=== PATIENT | female | born 1935 | race Hispanic/Latino ===

== ENCOUNTER 2016-10-14 11:05 | Emergency (ER) | payer OTHER, MEDICARE ==
[2016-10-14 11:21] VITALS: BP 120/64
[2016-10-14 11:58] LABS: CHLORIDE,CL 106 mmol/L (101-111); SODIUM,NA 141 mmol/L (135-145)
--- NOTE | 2016-10-14 13:16 | EDM.PDOC ---
ED HPI GENERAL MEDICAL PROBLEM - General Chief Complaint: Abdominal Pain Stated Complaint: SEVERE ABD PAIN, Time Seen by Provider: 10/14/16 11:25 Source of Information: Reports: Patient, Family History Limitations: Reports: Altered Mental Status (family reports alzheimers) - History of Present Illness INITIAL COMMENTS - FREE TEXT/NARRATIVE: This 81 yo female patient was sent to the ED from the [facility] due to abdominal pain, left arm pain and confusion. The patient has not been seen by the [facility] provider previously. The patient's family reports the patient has Alzheimer's and normally has confusion and memory issues. The patient's daughter reports the patient normally has intermittent abdominal pain and frequent UTI's. The patient has not had any recent treatments. The patient is normally supposed to be getting Vitamin B12 shots, but has not had a shot in the past month. Onset: Unknown/Unsure Duration: Constant Location: Reports: Abdomen, Upper Extremity, Left Quality: Reports: Ache, Dull Severity: Mild Improves with: Reports: None Worsens with: Reports: None Associated Symptoms: Reports: No Other Symptoms - Related Data Allergies Allergy/AdvReac Type Severity Reaction Status Date / Time iodine Allergy Cannot Verified 10/14/16 11:29 Remember Home Meds: Home Meds Cyanocobalamin (Vitamin B-12) [Cyanocobalamin Injection] 1,000 mcg IM WEEKLY [History] Ergocalciferol (Vitamin D2) [Vitamin D2] 50,000 unit PO ASDIRECTED 10/14/16 [ History] Past Medical History - Past Surgical History GI Surgical History: Reports: Appendectomy, Cholecystectomy Female Surgical History: Reports: Mastectomy Social & Family History - Family History Family Medical History: Noncontributory - Tobacco Use Smoking Status *Q: Current Some Day Smoker Years of Tobacco use: 60 Packs/Tins Daily: 1 Second Hand Smoke Exposure: Yes - Caffeine Use Caffeine Use: Reports: Coffee, Tea - Recreational Drug Use Recreational Drug Use: No ED ROS GENERAL - Review of Systems Review Of Systems: ROS reveals no pertinent complaints other than HPI. ED EXAM, GI/ABD - Physical Exam Exam: See Below Exam Limited By: No Limitations General Appearance: Alert, WD/WN, No Apparent Distress, Obese Eyes: Bilateral: Normal Appearance, EOMI Ears: Normal External Exam, Normal Canal, Hearing Grossly Normal, Normal TMs Nose: Normal Inspection, Normal Mucosa, No Blood Throat/Mouth: Normal Inspection, Normal Lips, Normal Teeth, Normal Gums, Normal Oropharynx, Normal Voice, No Airway Compromise Head: Atraumatic, Normocephalic Neck: Normal Inspection, Supple, Non-Tender, Full Range of Motion Respiratory/Chest: No Respiratory Distress, Lungs Clear, Normal Breath Sounds, No Accessory Muscle Use, Chest Non-Tender Cardiovascular: Normal Peripheral Pulses, Regular Rate, Rhythm, No Edema, No Gallop, No JVD, No Murmur, No Rub GI/Abdominal Exam: Normal Bowel Sounds, Soft, No Organomegaly, No Distention, No Abnormal Bruit, No Mass, Pelvis Stable, Tender (mild left upper quadrant tenderness to palpation) (Female) Exam: Deferred Rectal (Female) Exam: Deferred Back Exam: Normal Inspection, Full Range of Motion, NT Extremities: Normal Inspection, Normal Range of Motion, Non-Tender, Normal Capillary Refill, No Pedal Edema Neurological: Alert, Oriented, CN II-XII Intact, Normal Cognition, Normal Gait, Normal Reflexes, No Motor/Sensory Deficits Psychiatric: Other (memmory difficulties) Skin Exam: Warm, Dry, Intact, Normal Color, No Rash Lymphatic: No Adenopathy Course - Vital Signs Last Recorded V/S: Last Vital Signs Temp 36.6 C 10/14/16 11:19 Pulse 66 10/14/16 11:19 Resp 14 10/14/16 11:19 BP 120/64 10/14/16 11:19 Pulse Ox 98 10/14/16 11:19 - Orders/Labs/Meds Orders: Active Orders 24 hr Category Date Time Status EKG Documentation Completion [RC] URGENT Care 10/14/16 11:06 Active Labs: Laboratory Tests 10/14/16 10/14/16 10/14/16 Range/Units 11:25 11:25 11:25 WBC 7.7 (5.0-10.0) 10^3/uL RBC 4.09 L (4.2-5.4) 10^6/uL Hgb 11.1 L (12.0-16.0) g/dL Hct 35.2 L (37.0-47.0) % MCV 86.1 (80-100) fL MCH 27.1 (27.0-34.0) pg MCHC 31.5 L (33.0-35.0) g/dL Plt Count 181 (150-450) 10^3/uL Neut % (Auto) 72.5 (42.2-75.2) % Lymph % (Auto) 20.1 L (20.5-50.1) % [place] % (Auto) 5.9 (2-8) % Eos % (Auto) 0.8 L (1.0-3.0) % Baso % (Auto) 0.7 (0.0-1.0) % Sodium 141 (135-145) mmol/L Potassium 3.7 (3.6-5.0) mmol/L Chloride 106 (101-111) mmol/L Carbon Dioxide 24.0 (21.0-31.0) mmol/L Anion Gap 14.7 BUN 11 (7-18) mg/dL Creatinine 0.7 (0.6-1.3) mg/dL Est Cr Clr Drug Dosing 54.43 mL/min Estimated GFR (MDRD) > 60 BUN/Creatinine Ratio 15.71 Glucose 121 H (74-105) mg/dL Lactic Acid (0.5-2.2) mmol/L Calcium 8.4 (8.4-10.2) mg/dl Magnesium 2.0 (1.8-2.5) mg/dL Total Bilirubin 0.4 (0.2-1.0) mg/dL AST 17 (10-42) IU/L ALT 14 (10-60) IU/L Alkaline Phosphatase 88 (42-121) IU/L Ammonia 29 (11-35) umol/L Troponin I < 0.02 (0.00-0.02) ng/ml Total Protein 6.6 L (6.7-8.2) g/dl Albumin 3.5 (3.2-5.5) g/dl Globulin 3.1 Albumin/Globulin Ratio 1.13 Amylase 78 (28-100) U/L Lipase 35 (22-51) U/L Urine Color (YELLOW) Urine Appearance (CLEAR) Urine pH (5.0-9.0) Ur Specific [place] (1.005-1.030) Urine Protein (NEGATIVE) Urine Glucose (UA) (NEGATIVE) Urine Ketones (NEGATIVE) Urine Occult Blood (NEGATIVE) Urine Nitrite (NEGATIVE) Urine Bilirubin (NEGATIVE) Urine Urobilinogen (0.2-1.0) mg/dL Ur Leukocyte Esterase (NEGATIVE) Urine RBC /HPF Urine WBC (0-5/HPF) /HPF Ur Epithelial Cells /HPF Urine Bacteria (0-FEW/HPF) /HPF Urine Mucus /LPF 10/14/16 10/14/16 Range/Units 11:25 11:54 WBC (5.0-10.0) 10^3/uL RBC (4.2-5.4) 10^6/uL Hgb (12.0-16.0) g/dL Hct (37.0-47.0) % MCV (80-100) fL MCH (27.0-34.0) pg MCHC (33.0-35.0) g/dL Plt Count (150-450) 10^3/uL Neut % (Auto) (42.2-75.2) % Lymph % (Auto) (20.5-50.1) % [place] % (Auto) (2-8) % Eos % (Auto) (1.0-3.0) % Baso % (Auto) (0.0-1.0) % Sodium (135-145) mmol/L Potassium (3.6-5.0) mmol/L Chloride (101-111) mmol/L Carbon Dioxide (21.0-31.0) mmol/L Anion Gap BUN (7-18) mg/dL Creatinine (0.6-1.3) mg/dL Est Cr Clr Drug Dosing mL/min Estimated GFR (MDRD) BUN/Creatinine Ratio Glucose (74-105) mg/dL Lactic Acid 1.2 (0.5-2.2) mmol/L Calcium (8.4-10.2) mg/dl Magnesium (1.8-2.5) mg/dL Total Bilirubin (0.2-1.0) mg/dL AST (10-42) IU/L ALT (10-60) IU/L Alkaline Phosphatase (42-121) IU/L Ammonia (11-35) umol/L Troponin I (0.00-0.02) ng/ml Total Protein (6.7-8.2) g/dl Albumin (3.2-5.5) g/dl Globulin Albumin/Globulin Ratio Amylase (28-100) U/L Lipase (22-51) U/L Urine Color Yellow (YELLOW) Urine Appearance Slightly cloudy (CLEAR) Urine pH 6.0 (5.0-9.0) Ur Specific [place] 1.020 (1.005-1.030) Urine Protein Negative (NEGATIVE) Urine Glucose (UA) Negative (NEGATIVE) Urine Ketones Negative (NEGATIVE) Urine Occult Blood Negative (NEGATIVE) Urine Nitrite Negative (NEGATIVE) Urine Bilirubin Negative (NEGATIVE) Urine Urobilinogen 0.2 (0.2-1.0) mg/dL Ur Leukocyte Esterase Small H (NEGATIVE) Urine RBC 0-5 /HPF Urine WBC 20-30 H (0-5/HPF) /HPF Ur Epithelial Cells Moderate H /HPF Urine Bacteria Many H (0-FEW/HPF) /HPF Urine Mucus Few H /LPF Departure - Departure Time of Disposition: 13:13 Disposition: Home, Self-Care 01 Condition: Fair Clinical Impression: UTI (urinary tract infection) Qualifiers: Urinary tract infection type: site unspecified Hematuria presence: without hematuria Qualified Code(s): N39.0 - Urinary tract infection, site not specified - Discharge Information Instructions: Urinary Tract Infection, Adult Forms: ED Department Discharge Care Plan Goals: The patient and family were advised of the examination, lab and x-ray results during the visit. The patient was given a script for Keflex (500 mg) #14 to take 1 by mouth 2 times per day for 7 days. If the patient has any additional symptoms or concerns, the patient should follow-up with her primary care facility or return to the emergency department. - My Orders Last 24 Hours: My Active Orders 10/14/16 11:06 EKG Documentation Completion [RC] URGENT - Assessment/Plan Last 24 Hours: My Active Orders 10/14/16 11:06 EKG Documentation Completion [RC] URGENT
--- NOTE | 2016-10-19 09:37 | EKG ---
10/14/2016- TRICIA PÉREZ - EKG per my reading shows sinus rhythm with lateral T-wave inversions. [facility] /[id number]
== END 2016-10-14 13:22 | disposition home or self-care (01) ==
LOC: DL.ED 11:05
DX: N39.0 Urinary tract infection, site not specified (principal); F17.210 Nicotine dependence, cigarettes, uncomplicated; Z90.49 Acquired absence of other specified parts of digestive tract; Z88.8 Allergy status to other drugs, medicaments and biological substances
CPT/HCPCS: 36415; 74020; 80053; 81001; 82140; 82150; 83605; 83690; 83735; 84484; 85025; 93005; 93010; 99283; 99284

== ENCOUNTER 2017-05-24 21:56 | Emergency (ER) | payer OTHER, MEDICARE ==
[2017-05-24] MEDS ORDERED: Sodium Chloride 0.9% 1,000 ML IV ONE (22:07)
[2017-05-24 22:34] LABS: CHLORIDE,CL 101 mmol/L (101-111); SODIUM,NA 136 mmol/L (135-145)
[2017-05-25 00:39] VITALS: BP 126/89
--- NOTE | 2017-05-25 04:44 | EDM.PDOC ---
ED HPI GENERAL MEDICAL PROBLEM - General Chief Complaint: Abdominal Pain Stated Complaint: [id number] [facility] - [facility] Time Seen by Provider: 05/24/17 21:57 - Related Data Allergies Allergy/AdvReac Type Severity Reaction Status Date / Time iodine Allergy Cannot Verified 05/24/17 22:05 Remember Home Meds: Home Meds Cyanocobalamin (Vitamin B-12) [Cyanocobalamin Injection] 1,000 mcg IM WEEKLY [History] Past Medical History Gastrointestinal History: Reports: GI Bleed - Past Surgical History GI Surgical History: Reports: Appendectomy, Cholecystectomy Female Surgical History: Reports: Mastectomy Social & Family History - Family History Family Medical History: Noncontributory - Tobacco Use Smoking Status *Q: Unknown Ever Smoked Years of Tobacco use: 60 Packs/Tins Daily: 1 Second Hand Smoke Exposure: No - Caffeine Use Caffeine Use: Reports: Coffee, Tea - Recreational Drug Use Recreational Drug Use: No ED ROS GENERAL - Review of Systems Review Of Systems: See Below Constitutional: Reports: Malaise, Weakness, Fatigue, Decreased Appetite HEENT: Reports: No Symptoms Respiratory: Denies: Shortness of Breath, Cough Cardiovascular: Reports: No Symptoms GI/Abdominal: Reports: Abdominal Pain, Decreased Appetite, Stool Incontinence ( x1 yesterday, dark) Musculoskeletal: Reports: No Symptoms Skin: Reports: No Symptoms Neurological: Reports: Pre-Existing Deficit (alzheimers) Hematologic/Lymphatic: Reports: Anemia ED EXAM, GI/ABD - Physical Exam Exam: See Below Exam Limited By: No Limitations General Appearance: Alert, No Apparent Distress Eyes: Bilateral: EOMI, Pale Conjunctiva Ears: Normal External Exam Nose: Normal Inspection Throat/Mouth: Normal Inspection Head: Atraumatic, Normocephalic Neck: Normal Inspection Respiratory/Chest: No Respiratory Distress, Lungs Clear, Other (dyspnea with extertion noted when up to BR) GI/Abdominal Exam: Normal Bowel Sounds, Soft, Tender (mild periumbilcal, firm nontender mass lower mid abdomen and LLQ) Back Exam: Normal Inspection Extremities: Normal Inspection. No: Pedal Edema Neurological: Alert, Confused, Memory Loss Recent Events Psychiatric: Normal Affect Skin Exam: Warm, Dry, Intact, Pallor Course - Vital Signs Last Recorded V/S: Last Vital Signs Temp 98.0 F 05/25/17 00:11 Pulse 97 05/25/17 00:11 Resp 19 05/25/17 00:11 BP 126/89 05/25/17 00:11 Pulse Ox 100 05/24/17 23:56 - Orders/Labs/Meds Orders: Active Orders 24 hr Category Date Time Status EKG Documentation Completion [RC] URGENT Care 05/24/17 22:07 Active CULTURE BLOOD [BC] Stat Lab 05/24/17 23:50 Received CULTURE BLOOD [BC] Stat Lab 05/24/17 23:55 Received PACKED CELLS [RED BLOOD CELLS LP] [BBK] Stat Lab 05/24/17 22:05 Results TYPE AND SCREEN [BBK] Stat Lab 05/24/17 22:05 Results WEAK D TEST [BBK] Stat Lab 05/24/17 22:05 Results Blood Culture x2 Reflex Set [OM.PC] Stat Oth 05/24/17 22:07 Ordered Labs: Laboratory Tests 05/24/17 05/24/17 05/24/17 Range/Units 22:05 22:05 22:05 WBC 9.6 (5.0-10.0) 10^3/uL RBC 2.74 L (4.2-5.4) 10^6/uL Hgb 4.7 L* D (12.0-16.0) g/dL Hct 18.3 L* (37.0-47.0) % MCV 66.8 L D (80-100) fL MCH 17.2 L (27.0-34.0) pg MCHC 25.7 L (33.0-35.0) g/dL Plt Count 359 D (150-450) 10^3/uL Neut % (Auto) 66.8 (42.2-75.2) % Lymph % (Auto) 24.9 (20.5-50.1) % [place] % (Auto) 6.9 (2-8) % Eos % (Auto) 0.8 L (1.0-3.0) % Baso % (Auto) 0.6 (0.0-1.0) % Add Manual Diff Yes Neutrophils % (Manual) 73 (42-75) % Lymphocytes % (Manual) 23 (20-50) % Monocytes % (Manual) 3 (2-8) % Eosinophils % (Manual) 1 (1-3) % Hypochromasia 2+ moderate Poikilocytosis 2+ moderate Microcytosis 2+ moderate Target Cells 1+ slight Ovalocytes 1+ slight Stomatocytes 1+ slight PT (9.0-12.0) SEC INR (0.9-1.2) Sodium 136 (135-145) mmol/L Potassium 3.3 L (3.6-5.0) mmol/L Chloride 101 (101-111) mmol/L Carbon Dioxide 27.0 (21.0-31.0) mmol/L Anion Gap 11.3 BUN 13 (7-18) mg/dL Creatinine 0.8 (0.6-1.3) mg/dL Est Cr Clr Drug Dosing 50.75 mL/min Estimated GFR (MDRD) > 60 BUN/Creatinine Ratio 16.25 Glucose 141 H (74-105) mg/dL Lactic Acid (0.5-2.2) mmol/L Calcium 8.3 L (8.4-10.2) mg/dl Total Bilirubin 0.4 (0.2-1.0) mg/dL AST 17 (10-42) IU/L ALT 9 L (10-60) IU/L Alkaline Phosphatase 80 (42-121) IU/L CK-MB (CK-2) 1.80 (0.4-4.7) ng/mL Troponin I < 0.02 (0.00-0.02) ng/ml B-Natriuretic Peptide 503 H (0-100) pg/ml Total Protein 6.7 (6.7-8.2) g/dl Albumin 3.4 (3.2-5.5) g/dl Globulin 3.3 Albumin/Globulin Ratio 1.03 Amylase 75 (28-100) U/L Lipase 25 (22-51) U/L Urine Color (YELLOW) Urine Appearance (CLEAR) Urine pH (5.0-9.0) Ur Specific [place] (1.005-1.030) Urine Protein (NEGATIVE) Urine Glucose (UA) (NEGATIVE) Urine Ketones (NEGATIVE) Urine Occult Blood (NEGATIVE) Urine Nitrite (NEGATIVE) Urine Bilirubin (NEGATIVE) Urine Urobilinogen (0.2-1.0) mg/dL Ur Leukocyte Esterase (NEGATIVE) Urine RBC /HPF Urine WBC (0-5/HPF) /HPF Ur Epithelial Cells /HPF Urine Bacteria (0-FEW/HPF) /HPF Blood Type Gel Antibody Screen Crossmatch 05/24/17 05/24/17 05/24/17 Range/Units 22:05 22:05 22:27 WBC (5.0-10.0) 10^3/uL RBC (4.2-5.4) 10^6/uL Hgb (12.0-16.0) g/dL Hct (37.0-47.0) % MCV (80-100) fL MCH (27.0-34.0) pg MCHC (33.0-35.0) g/dL Plt Count (150-450) 10^3/uL Neut % (Auto) (42.2-75.2) % Lymph % (Auto) (20.5-50.1) % [place] % (Auto) (2-8) % Eos % (Auto) (1.0-3.0) % Baso % (Auto) (0.0-1.0) % Add Manual Diff Neutrophils % (Manual) (42-75) % Lymphocytes % (Manual) (20-50) % Monocytes % (Manual) (2-8) % Eosinophils % (Manual) (1-3) % Hypochromasia Poikilocytosis Microcytosis Target Cells Ovalocytes Stomatocytes PT 9.4 (9.0-12.0) SEC INR 0.9 (0.9-1.2) Sodium (135-145) mmol/L Potassium (3.6-5.0) mmol/L Chloride (101-111) mmol/L Carbon Dioxide (21.0-31.0) mmol/L Anion Gap BUN (7-18) mg/dL Creatinine (0.6-1.3) mg/dL Est Cr Clr Drug Dosing mL/min Estimated GFR (MDRD) BUN/Creatinine Ratio Glucose (74-105) mg/dL Lactic Acid (0.5-2.2) mmol/L Calcium (8.4-10.2) mg/dl Total Bilirubin (0.2-1.0) mg/dL AST (10-42) IU/L ALT (10-60) IU/L Alkaline Phosphatase (42-121) IU/L CK-MB (CK-2) (0.4-4.7) ng/mL Troponin I (0.00-0.02) ng/ml B-Natriuretic Peptide (0-100) pg/ml Total Protein (6.7-8.2) g/dl Albumin (3.2-5.5) g/dl Globulin Albumin/Globulin Ratio Amylase (28-100) U/L Lipase (22-51) U/L Urine Color Yellow (YELLOW) Urine Appearance Clear (CLEAR) Urine pH 6.5 (5.0-9.0) Ur Specific [place] 1.015 (1.005-1.030) Urine Protein Negative (NEGATIVE) Urine Glucose (UA) Negative (NEGATIVE) Urine Ketones Negative (NEGATIVE) Urine Occult Blood Negative (NEGATIVE) Urine Nitrite Negative (NEGATIVE) Urine Bilirubin Negative (NEGATIVE) Urine Urobilinogen 1.0 (0.2-1.0) mg/dL Ur Leukocyte Esterase Trace H (NEGATIVE) Urine RBC 0-5 /HPF Urine WBC 0-5 (0-5/HPF) /HPF Ur Epithelial Cells Occasional /HPF Urine Bacteria Many H (0-FEW/HPF) /HPF Blood Type A NEGATIVE Gel Antibody Screen Negative Crossmatch See Detail 05/24/17 Range/Units 23:50 WBC (5.0-10.0) 10^3/uL RBC (4.2-5.4) 10^6/uL Hgb (12.0-16.0) g/dL Hct (37.0-47.0) % MCV (80-100) fL MCH (27.0-34.0) pg MCHC (33.0-35.0) g/dL Plt Count (150-450) 10^3/uL Neut % (Auto) (42.2-75.2) % Lymph % (Auto) (20.5-50.1) % [place] % (Auto) (2-8) % Eos % (Auto) (1.0-3.0) % Baso % (Auto) (0.0-1.0) % Add Manual Diff Neutrophils % (Manual) (42-75) % Lymphocytes % (Manual) (20-50) % Monocytes % (Manual) (2-8) % Eosinophils % (Manual) (1-3) % Hypochromasia Poikilocytosis Microcytosis Target Cells Ovalocytes Stomatocytes PT (9.0-12.0) SEC INR (0.9-1.2) Sodium (135-145) mmol/L Potassium (3.6-5.0) mmol/L Chloride (101-111) mmol/L Carbon Dioxide (21.0-31.0) mmol/L Anion Gap BUN (7-18) mg/dL Creatinine (0.6-1.3) mg/dL Est Cr Clr Drug Dosing mL/min Estimated GFR (MDRD) BUN/Creatinine Ratio Glucose (74-105) mg/dL Lactic Acid 1.7 (0.5-2.2) mmol/L Calcium (8.4-10.2) mg/dl Total Bilirubin (0.2-1.0) mg/dL AST (10-42) IU/L ALT (10-60) IU/L Alkaline Phosphatase (42-121) IU/L CK-MB (CK-2) (0.4-4.7) ng/mL Troponin I (0.00-0.02) ng/ml B-Natriuretic Peptide (0-100) pg/ml Total Protein (6.7-8.2) g/dl Albumin (3.2-5.5) g/dl Globulin Albumin/Globulin Ratio Amylase (28-100) U/L Lipase (22-51) U/L Urine Color (YELLOW) Urine Appearance (CLEAR) Urine pH (5.0-9.0) Ur Specific [place] (1.005-1.030) Urine Protein (NEGATIVE) Urine Glucose (UA) (NEGATIVE) Urine Ketones (NEGATIVE) Urine Occult Blood (NEGATIVE) Urine Nitrite (NEGATIVE) Urine Bilirubin (NEGATIVE) Urine Urobilinogen (0.2-1.0) mg/dL Ur Leukocyte Esterase (NEGATIVE) Urine RBC /HPF Urine WBC (0-5/HPF) /HPF Ur Epithelial Cells /HPF Urine Bacteria (0-FEW/HPF) /HPF Blood Type Gel Antibody Screen Crossmatch Meds: Medications Discontinued Medications Generic Name Dose Route Start Last Admin Trade Name Freq PRN Reason Stop Dose Admin Sodium Chloride 1,000 mls @ 75 mls/hr 05/24/17 22:07 05/24/17 22:23 Normal Saline IV 05/25/17 11:26 75 mls/hr .BOLUS ONE Administration - Radiology Interpretation Free Text/Narrative:: CXR mild pulmonary edema Abdomen flat plate; formed stool throughout entirety of colon - Re-Assessments/Exams Free Text/Narrative Re-Assessment/Exam: 05/25/17 04:38 TC call received from instructional technology coordinator provider at [facility], [facility] due to ongoing c/o abdominal pain , fatigue sleeping 75% of day. Hx of frequent UTI's and family concern or recurrence. MD reported labs downe today were noted that Hgb 4.5 . MD unable to get ahold of patient or family so notified [employer] for welfare check. Family arrived at patient residence when PD there. Brought to ER as recommended for further evaluation. Dr. Mills [place] provider updated on status. No critical care availabilty and distance to travel recommend patient be transferred to closer facilty with critical care capability and GI workup. Dr Ling accepting of patient. Tx via [facility]. Patient stable, guarded status at time of transfer.First unit PRBC infusing. Departure - Departure Time of Disposition: 00:55 Disposition: DC/Tfer to Acute Hospital 02 Condition: Serious Clinical Impression: Elevated brain natriuretic peptide (BNP) level Abdominal pain Qualifiers: Abdominal location: periumbilical Qualified Code(s): R10.33 - Periumbilical pain Anemia Qualifiers: Anemia type: unspecified type Qualified Code(s): D64.9 - Anemia, unspecified Alzheimers disease Qualifiers: Alzheimer's disease onset: unspecified onset Dementia behavioral disturbance: without behavioral disturbance Qualified Code(s): G30.9 - Alzheimer's disease, unspecified; F02.80 - Dementia in other diseases classified elsewhere without behavioral disturbance; F02.80 - Dementia in other diseases classified elsewhere without behavioral disturbance; F02.80 - Dementia in other diseases classified elsewhere without behavioral disturbance - Discharge Information Forms: ED Department Discharge - My Orders Last 24 Hours: My Active Orders 05/24/17 22:05 PACKED CELLS [RED BLOOD CELLS LP] [BBK] Stat TYPE AND SCREEN [BBK] Stat WEAK D TEST [BBK] Stat 05/24/17 22:07 EKG Documentation Completion [RC] URGENT Blood Culture x2 Reflex Set [OM.PC] Stat 05/24/17 23:50 CULTURE BLOOD [BC] Stat 05/24/17 23:55 CULTURE BLOOD [BC] Stat - Assessment/Plan Last 24 Hours: My Active Orders 05/24/17 22:05 PACKED CELLS [RED BLOOD CELLS LP] [BBK] Stat TYPE AND SCREEN [BBK] Stat WEAK D TEST [BBK] Stat 05/24/17 22:07 EKG Documentation Completion [RC] URGENT Blood Culture x2 Reflex Set [OM.PC] Stat 05/24/17 23:50 CULTURE BLOOD [BC] Stat 05/24/17 23:55 CULTURE BLOOD [BC] Stat
--- NOTE | 2017-05-26 09:59 | EKG ---
05/24/2017- TRICIA PÉREZ - TIME: 10:12 p.m. FINDINGS: EKG, per my reading, shows sinus rhythm with anterolateral ST depression. [facility] /[id number]
--- NOTE | 2017-05-26 10:12 | EKG ---
05/24/2017- TRICIA PÉREZ - TIME: 10:11 p.m. FINDINGS: EKG, per my reading, shows sinus rhythm with PACs and anterolateral ST depression. [facility] /[id number]
== END 2017-05-25 00:50 ==
LOC: DL.ED 21:56
DX: R10.33 Periumbilical pain (principal); R79.89 Other specified abnormal findings of blood chemistry; G30.9 Alzheimer's disease, unspecified; F02.80 Dementia in other diseases classified elsewhere, unspecified severity, without behavioral disturbance, psychotic disturbance, mood disturbance, and anxiety; D64.9 Anemia, unspecified; Z91.09 Other allergy status, other than to drugs and biological substances; Z90.49 Acquired absence of other specified parts of digestive tract
CPT/HCPCS: 36415; 36430; 71045; 74018; 80053; 81001; 82150; 82272; 82553; 83605; 83690; 83880; 84484; 85025; 85610; 86850; 86900; 86901; 86920; 86922; 87040; 93005; 93010; 96365; 96366; 99285; J7030; P9016

== ENCOUNTER 2018-09-03 11:20 | Inpatient (IN) | payer MEDICARE, OTHER ==
[2018-09-03] MEDS ORDERED: Sodium Chloride 0.9% 1,000 ML IV SCH (12:00)
--- NOTE | 2018-09-03 12:00 | EDM.PDOC ---
ED HPI GENERAL MEDICAL PROBLEM - General Chief Complaint: General Stated Complaint: sleeping, no liquid intake Time Seen by Provider: 09/03/18 11:50 Source of Information: Reports: Patient History Limitations: Reports: No Limitations - History of Present Illness INITIAL COMMENTS - FREE TEXT/NARRATIVE: This 83 yo female patient was brought to the ED by her daughter due to increased tiredness, loss of appetite and little fluid intake. The patient has a history of dementia. The patient's daughter relayed the patient's history. The patient finished up an antibiotic over the weekend for a UTI. The daughter reports the patient has not been eating or drinking over the weekend. The [facility] was called today and the patient's daughter was told to bring the patient to the ED. 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 ED EXAM, GENERAL - Physical Exam Exam: See Below Exam Limited By: No Limitations General Appearance: Alert, WD/WN, No Apparent Distress Eye Exam: Bilateral Eye: EOMI, Normal Inspection, PERRL Ears: Normal External Exam, Normal Canal, Hearing Grossly Normal, Normal TMs Nose: Normal Inspection, Normal Mucosa, No Blood Throat/Mouth: Normal Inspection, Normal Lips, Normal Teeth, Normal Gums, Normal Oropharynx, Normal Voice, No Airway Compromise Head: Atraumatic, Normocephalic Neck: Normal Inspection, Supple, Non-Tender, Full Range of Motion Respiratory/Chest: No Respiratory Distress, Lungs Clear, Normal Breath Sounds, No Accessory Muscle Use, Chest Non-Tender Cardiovascular: Regular Rate, Rhythm, No Edema, No Gallop, No JVD, No Rub, Systolic Murmur GI/Abdominal: Normal Bowel Sounds, Soft, Non-Tender, No Organomegaly, No Distention, No Abnormal Bruit, No Mass (Female) Exam: Deferred Rectal (Female) Exam: Deferred Back Exam: Normal Inspection, Full Range of Motion, NT Extremities: Normal Inspection, Normal Range of Motion, Non-Tender, Normal Capillary Refill, No Pedal Edema Neurological: Alert, Oriented, CN II-XII Intact, Normal Cognition, Normal Gait, Normal Reflexes, No Motor/Sensory Deficits Psychiatric: Flat Affect Skin Exam: Warm, Dry, Intact, Normal Color, No Rash Lymphatic: No Adenopathy Course - Vital Signs Last Recorded V/S: Last Vital Signs Temp 35.8 C 09/03/18 12:45 Pulse 91 09/03/18 12:45 Resp 22 H 09/03/18 12:45 BP 94/50 L 09/03/18 12:45 Pulse Ox 94 L 09/03/18 12:45 - Orders/Labs/Meds Orders: Active Orders 24 hr Category Date Time Status EKG Documentation Completion [RC] URGENT Care 09/03/18 11:52 Active CULTURE BLOOD [BC] Stat Lab 09/03/18 12:05 Received RED BLOOD CELLS LP [BBK] Stat Lab 09/03/18 12:05 Results TYPE AND SCREEN [BBK] Stat Lab 09/03/18 12:05 Results UA RFX SHEILA AND CULT IF INDIC [URIN] Urgent Lab 09/03/18 11:53 Ordered WEAK D TEST [BBK] Stat Lab 09/03/18 12:05 Results Sodium Chloride 0.9% [Normal Saline] 1,000 ml Med 09/03/18 12:00 Active IV ASDIRECTED Transfuse Red Blood Cells [COMM] Urgent Oth 09/03/18 12:53 Ordered Medication Orders Sodium Chloride (Normal Saline) 1,000 mls @ 500 mls/hr IV ASDIRECTED MILTON Last Admin: 09/03/18 12:03 Dose: 500 mls/hr Labs: Laboratory Tests 09/03/18 09/03/18 09/03/18 Range/Units 12:05 12:05 12:05 WBC 7.6 (5.0-10.0) 10^3/uL RBC 3.26 L (4.2-5.4) 10^6/uL Hgb 5.0 L* (12.0-16.0) g/dL Hct 20.3 L* (37.0-47.0) % MCV 62.3 L D (80-100) fL MCH 15.3 L (27.0-34.0) pg MCHC 24.6 L (33.0-35.0) g/dL Plt Count 332 (150-450) 10^3/uL Neut % (Auto) 88.2 H (42.2-75.2) % Lymph % (Auto) 6.3 L (20.5-50.1) % [place] % (Auto) 4.7 (2-8) % Eos % (Auto) 0.4 L (1.0-3.0) % Baso % (Auto) 0.4 (0.0-1.0) % Sodium 139 (135-145) mmol/L Potassium 3.0 L (3.6-5.0) mmol/L Chloride 105 (101-111) mmol/L Carbon Dioxide 22.0 (21.0-31.0) mmol/L Anion Gap 15.0 BUN 10 (7-18) mg/dL Creatinine 0.7 (0.6-1.3) mg/dL Est Cr Clr Drug Dosing 50.37 mL/min Estimated GFR (MDRD) > 60 BUN/Creatinine Ratio 14.28 Glucose 164 H (74-105) mg/dL Lactic Acid 2.5 H (0.5-2.2) mmol/L Calcium 8.4 (8.4-10.2) mg/dl Total Bilirubin 1.5 H (0.2-1.0) mg/dL AST 17 (10-42) IU/L ALT 10 (10-60) IU/L Alkaline Phosphatase 84 (42-121) IU/L Troponin I < 0.02 (0.00-0.02) ng/ml Total Protein 6.4 L (6.7-8.2) g/dl Albumin 3.4 (3.2-5.5) g/dl Globulin 3.0 Albumin/Globulin Ratio 1.13 Blood Type Gel Antibody Screen Crossmatch 09/03/18 Range/Units 12:05 WBC (5.0-10.0) 10^3/uL RBC (4.2-5.4) 10^6/uL Hgb (12.0-16.0) g/dL Hct (37.0-47.0) % MCV (80-100) fL MCH (27.0-34.0) pg MCHC (33.0-35.0) g/dL Plt Count (150-450) 10^3/uL Neut % (Auto) (42.2-75.2) % Lymph % (Auto) (20.5-50.1) % [place] % (Auto) (2-8) % Eos % (Auto) (1.0-3.0) % Baso % (Auto) (0.0-1.0) % Sodium (135-145) mmol/L Potassium (3.6-5.0) mmol/L Chloride (101-111) mmol/L Carbon Dioxide (21.0-31.0) mmol/L Anion Gap BUN (7-18) mg/dL Creatinine (0.6-1.3) mg/dL Est Cr Clr Drug Dosing mL/min Estimated GFR (MDRD) BUN/Creatinine Ratio Glucose (74-105) mg/dL Lactic Acid (0.5-2.2) mmol/L Calcium (8.4-10.2) mg/dl Total Bilirubin (0.2-1.0) mg/dL AST (10-42) IU/L ALT (10-60) IU/L Alkaline Phosphatase (42-121) IU/L Troponin I (0.00-0.02) ng/ml Total Protein (6.7-8.2) g/dl Albumin (3.2-5.5) g/dl Globulin Albumin/Globulin Ratio Blood Type A NEGATIVE Gel Antibody Screen Negative Crossmatch See Detail Meds: Medications Generic Name Dose Route Start Last Admin Trade Name Freq PRN Reason Stop Dose Admin Sodium Chloride 1,000 mls @ 500 mls/hr 09/03/18 12:00 09/03/18 12:03 Normal Saline IV 500 mls/hr ASDIRECTED MILTON Administration - Re-Assessments/Exams Free Text/Narrative Re-Assessment/Exam: 09/03/18 13:58 Discussed the history, examination, labs and treatments with Dr. Salas ([facility] in [place]). I received a return call from the [facility] transfer and pumphouse operator chief verifying there were no beds available at the [facility] in [place] and that they will put a note into the patient's chart for [facility] review. The patient will be admitted to [facility] for blood as well as further management. Departure - Departure Time of Disposition: 14:01 Disposition: Admitted As Inpatient 66 Condition: Serious Clinical Impression: Anemia Qualifiers: Anemia type: unspecified type Qualified Code(s): D64.9 - Anemia, unspecified - Discharge Information *PRESCRIPTION DRUG MONITORING PROGRAM REVIEWED*: Not Applicable *COPY OF PRESCRIPTION DRUG MONITORING REPORT IN PATIENT KEVIN: Not Applicable Forms: ED Department Discharge Care Plan Goals: Discussed the patient's history, examination, lab and treatments with Dr. Sethi. Dr. Sethi accepted the patient for continued evaluation and management as an inpatient at [facility]. - My Orders Last 24 Hours: My Active Orders 09/03/18 11:52 EKG Documentation Completion [RC] URGENT 09/03/18 11:53 UA RFX SHEILA AND CULT IF INDIC [URIN] Urgent 09/03/18 12:00 Sodium Chloride 0.9% [Normal Saline] 1,000 ml IV ASDIRECTED 09/03/18 12:05 CULTURE BLOOD [BC] Stat RED BLOOD CELLS LP [BBK] Stat TYPE AND SCREEN [BBK] Stat WEAK D TEST [BBK] Stat 09/03/18 12:53 Transfuse Red Blood Cells [COMM] Urgent - Assessment/Plan Last 24 Hours: My Active Orders 09/03/18 11:52 EKG Documentation Completion [RC] URGENT 09/03/18 11:53 UA RFX SHEILA AND CULT IF INDIC [URIN] Urgent 09/03/18 12:00 Sodium Chloride 0.9% [Normal Saline] 1,000 ml IV ASDIRECTED 09/03/18 12:05 CULTURE BLOOD [BC] Stat RED BLOOD CELLS LP [BBK] Stat TYPE AND SCREEN [BBK] Stat WEAK D TEST [BBK] Stat 09/03/18 12:53 Transfuse Red Blood Cells [COMM] Urgent
[2018-09-03 12:34] LABS: CHLORIDE,CL 105 mmol/L (101-111); SODIUM,NA 139 mmol/L (135-145)
[2018-09-03] MEDS ORDERED: Potassium Chloride 10 MEQ Tab.ER PO ONE (16:00)
[2018-09-03] MEDS ORDERED: Sodium Chloride 0.9% 10 ML Syringe FLUSH PRN (17:12)
--- NOTE | 2018-09-03 23:41 | PCM.HP ---
H&P History of Present Illness - General Date of Service: 09/03/18 Admit Problem/Dx: Admission Diagnosis/Problem Admission Diagnosis/Problem Anemia Source of Information: Family - History of Present Illness Initial Comments - Free Text/Narative: Patient is a 83 year old female was brought in today by daughter due to generalized weakness. patient was noted to be just laying in bed and not eating that much in the last 4 days but on the day of admission, really weak and not drinking at all hence daughter brought her to ER for possible IV fluids. at the ER was noted to have anemia. patient has chronic anemia, was worked up in [facility] in the past and was deemed to be unrevealing as per daughter. there are not other reported associated symptoms except for the weakness. no fever, chills , cough, shortness of breath, vomiting, diarrhea. patient also had recurrent UTI in the past. patient also has underlying dementia but there has been no changes in sensorium. 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: Neurological History: Reports: Alzheimers Disease Psychiatric History: Reports: Anxiety Hematologic History: Reports: Anemia, B12 Deficiency Oncologic (Cancer) History: Reports: Breast - Past Surgical History HEENT Surgical History: Reports: None GI Surgical History: Reports: Appendectomy, Cholecystectomy Female Surgical History: Reports: Mastectomy Other Female Surgeries/Procedures: Left breast removed Neurological Surgical History: Reports: None Oncologic Surgical History: Reports: Mastectomy Other Oncologic Surgeries/Procedures: Left breast removal Social & Family History - Family History Family Medical History: Noncontributory - Tobacco Use Smoking Status *Q: Never Smoker Second Hand Smoke Exposure: No - Caffeine Use Caffeine Use: Reports: Coffee - Recreational Drug Use Recreational Drug Use: No H&P Review of Systems - Review of Systems: Review Of Systems: See Below General: Reports: Weakness Exam - Exam Exam: See Below - Vital Signs Vital Signs: Last Vital Signs Temp 98.2 F 09/03/18 23:07 Pulse 92 09/03/18 23:07 Resp 20 09/03/18 23:07 BP 144/53 H 09/03/18 23:07 Pulse Ox 98 09/03/18 23:07 Weight: 158 lb - Exam General: Alert HEENT: Conjunctiva Clear Neck: Supple Lungs: Clear to Auscultation, Normal Respiratory Effort Cardiovascular: Regular Rate, Regular Rhythm GI/Abdominal Exam: Normal Bowel Sounds, Soft, Non-Tender - Patient Data Lab Results Last 24 hrs: Laboratory Results - last 24 hr 09/03/18 09/03/18 09/03/18 Range/Units 12:05 12:05 12:05 WBC 7.6 (5.0-10.0) 10^3/uL RBC 3.26 L (4.2-5.4) 10^6/uL Hgb 5.0 L* (12.0-16.0) g/dL Hct 20.3 L* (37.0-47.0) % MCV 62.3 L D (80-100) fL MCH 15.3 L (27.0-34.0) pg MCHC 24.6 L (33.0-35.0) g/dL Plt Count 332 (150-450) 10^3/uL Neut % (Auto) 88.2 H (42.2-75.2) % Lymph % (Auto) 6.3 L (20.5-50.1) % [place] % (Auto) 4.7 (2-8) % Eos % (Auto) 0.4 L (1.0-3.0) % Baso % (Auto) 0.4 (0.0-1.0) % Sodium 139 (135-145) mmol/L Potassium 3.0 L (3.6-5.0) mmol/L Chloride 105 (101-111) mmol/L Carbon Dioxide 22.0 (21.0-31.0) mmol/L Anion Gap 15.0 BUN 10 (7-18) mg/dL Creatinine 0.7 (0.6-1.3) mg/dL Est Cr Clr Drug Dosing 50.37 mL/min Estimated GFR (MDRD) > 60 BUN/Creatinine Ratio 14.28 Glucose 164 H (74-105) mg/dL Lactic Acid 2.5 H (0.5-2.2) mmol/L Calcium 8.4 (8.4-10.2) mg/dl Magnesium (1.8-2.5) mg/dL Total Bilirubin 1.5 H (0.2-1.0) mg/dL AST 17 (10-42) IU/L ALT 10 (10-60) IU/L Alkaline Phosphatase 84 (42-121) IU/L Troponin I < 0.02 (0.00-0.02) ng/ml Total Protein 6.4 L (6.7-8.2) g/dl Albumin 3.4 (3.2-5.5) g/dl Globulin 3.0 Albumin/Globulin Ratio 1.13 Urine Color (YELLOW) Urine Appearance (CLEAR) Urine pH (5.0-9.0) Ur Specific [place] (1.005-1.030) Urine Protein (NEGATIVE) Urine Glucose (UA) (NEGATIVE) Urine Ketones (NEGATIVE) Urine Occult Blood (NEGATIVE) Urine Nitrite (NEGATIVE) Urine Bilirubin (NEGATIVE) Urine Urobilinogen (0.2-1.0) mg/dL Ur Leukocyte Esterase (NEGATIVE) Urine RBC /HPF Urine WBC (0-5/HPF) /HPF Ur Epithelial Cells (NOT SEEN) /HPF Urine Bacteria (0-FEW/HPF) /HPF Urine Yeast (NOT SEEN) /HPF Blood Type Gel Antibody Screen Crossmatch 09/03/18 09/03/18 09/03/18 Range/Units 12:05 12:05 19:10 WBC (5.0-10.0) 10^3/uL RBC (4.2-5.4) 10^6/uL Hgb (12.0-16.0) g/dL Hct (37.0-47.0) % MCV (80-100) fL MCH (27.0-34.0) pg MCHC (33.0-35.0) g/dL Plt Count (150-450) 10^3/uL Neut % (Auto) (42.2-75.2) % Lymph % (Auto) (20.5-50.1) % [place] % (Auto) (2-8) % Eos % (Auto) (1.0-3.0) % Baso % (Auto) (0.0-1.0) % Sodium (135-145) mmol/L Potassium (3.6-5.0) mmol/L Chloride (101-111) mmol/L Carbon Dioxide (21.0-31.0) mmol/L Anion Gap BUN (7-18) mg/dL Creatinine (0.6-1.3) mg/dL Est Cr Clr Drug Dosing mL/min Estimated GFR (MDRD) BUN/Creatinine Ratio Glucose (74-105) mg/dL Lactic Acid (0.5-2.2) mmol/L Calcium (8.4-10.2) mg/dl Magnesium 1.9 (1.8-2.5) mg/dL Total Bilirubin (0.2-1.0) mg/dL AST (10-42) IU/L ALT (10-60) IU/L Alkaline Phosphatase (42-121) IU/L Troponin I (0.00-0.02) ng/ml Total Protein (6.7-8.2) g/dl Albumin (3.2-5.5) g/dl Globulin Albumin/Globulin Ratio Urine Color Magda (YELLOW) Urine Appearance Slightly cloudy (CLEAR) Urine pH 7.0 (5.0-9.0) Ur Specific [place] 1.020 (1.005-1.030) Urine Protein Trace H (NEGATIVE) Urine Glucose (UA) Negative (NEGATIVE) Urine Ketones 15 H (NEGATIVE) Urine Occult Blood Negative (NEGATIVE) Urine Nitrite Negative (NEGATIVE) Urine Bilirubin Negative (NEGATIVE) Urine Urobilinogen 2.0 H (0.2-1.0) mg/dL Ur Leukocyte Esterase Negative (NEGATIVE) Urine RBC Not seen /HPF Urine WBC 0-5 (0-5/HPF) /HPF Ur Epithelial Cells Many H (NOT SEEN) /HPF Urine Bacteria Many H (0-FEW/HPF) /HPF Urine Yeast Many H (NOT SEEN) /HPF Blood Type A NEGATIVE Gel Antibody Screen Negative Crossmatch See Detail 09/03/18 Range/Units 23:00 WBC (5.0-10.0) 10^3/uL RBC (4.2-5.4) 10^6/uL Hgb 6.1 L* (12.0-16.0) g/dL Hct 22.0 L (37.0-47.0) % MCV (80-100) fL MCH (27.0-34.0) pg MCHC (33.0-35.0) g/dL Plt Count (150-450) 10^3/uL Neut % (Auto) (42.2-75.2) % Lymph % (Auto) (20.5-50.1) % [place] % (Auto) (2-8) % Eos % (Auto) (1.0-3.0) % Baso % (Auto) (0.0-1.0) % Sodium (135-145) mmol/L Potassium (3.6-5.0) mmol/L Chloride (101-111) mmol/L Carbon Dioxide (21.0-31.0) mmol/L Anion Gap BUN (7-18) mg/dL Creatinine (0.6-1.3) mg/dL Est Cr Clr Drug Dosing mL/min Estimated GFR (MDRD) BUN/Creatinine Ratio Glucose (74-105) mg/dL Lactic Acid (0.5-2.2) mmol/L Calcium (8.4-10.2) mg/dl Magnesium (1.8-2.5) mg/dL Total Bilirubin (0.2-1.0) mg/dL AST (10-42) IU/L ALT (10-60) IU/L Alkaline Phosphatase (42-121) IU/L Troponin I (0.00-0.02) ng/ml Total Protein (6.7-8.2) g/dl Albumin (3.2-5.5) g/dl Globulin Albumin/Globulin Ratio Urine Color (YELLOW) Urine Appearance (CLEAR) Urine pH (5.0-9.0) Ur Specific [place] (1.005-1.030) Urine Protein (NEGATIVE) Urine Glucose (UA) (NEGATIVE) Urine Ketones (NEGATIVE) Urine Occult Blood (NEGATIVE) Urine Nitrite (NEGATIVE) Urine Bilirubin (NEGATIVE) Urine Urobilinogen (0.2-1.0) mg/dL Ur Leukocyte Esterase (NEGATIVE) Urine RBC /HPF Urine WBC (0-5/HPF) /HPF Ur Epithelial Cells (NOT SEEN) /HPF Urine Bacteria (0-FEW/HPF) /HPF Urine Yeast (NOT SEEN) /HPF Blood Type Gel Antibody Screen Crossmatch Result Diagrams: 09/03/18 23:00 09/03/18 12:05 Jamel Results Last 24 hrs: Microbiology 09/03/18 12:55 Stool Occult Blood (JAMEL) - Final Stool / Feces NEGATIVE OCCULT BLOOD REFERENCE RANGE: NEGATIVE *Q Meaningful Use (ADM) - VTE *Q VTE Anticoagulation Contraindications: Medical/Procedure Contrai Problem List Initiated/Reviewed/Updated: Yes Orders Last 24hrs: Active Orders 24 hr Category Date Time Status Patient Status [ADT] Routine ADT 09/03/18 15:43 Active Antiembolic Devices [RC] 08,20 Care 09/03/18 15:45 Active Communication Order [RC] DAILY Care 09/03/18 15:46 Active EKG Documentation Completion [RC] URGENT Care 09/03/18 11:52 Active Oxygen Therapy [RC] PRN Care 09/03/18 15:43 Active Up With Assistance [RC] ASDIRECTED Care 09/03/18 15:43 Active VTE/DVT Education [RC] PER UNIT ROUTINE Care 09/03/18 15:43 Active Vital Signs [RC] Q4H Care 09/03/18 15:43 Active Regular Diet [DIET] Diet 09/03/18 Dinner Active CULTURE BLOOD [BC] Stat Lab 09/03/18 12:05 Received CULTURE URINE [RM] Routine Lab 09/03/18 19:10 Received Sodium Chloride 0.9% [Saline Flush] Med 09/03/18 17:12 Active 10 ml FLUSH ASDIRECTED PRN Anticoagulation Contraindications VTE [AST] Per Unit Oth 09/03/18 15:43 Ordered Routine Antiembolic Hose [OM.PC] Per Unit Routine Oth 09/03/18 15:44 Ordered Saline Lock Insert [OM.PC] Routine Oth 09/03/18 17:12 Ordered Transfuse Red Blood Cells [COMM] Urgent Oth 09/03/18 12:53 Ordered Code Status [Resuscitation Status] Routine Resus Stat 09/03/18 18:56 Ordered Medication Orders Sodium Chloride (Saline Flush) 10 ml FLUSH ASDIRECTED PRN PRN Reason: Keep Vein Open Assessment/Plan Comment:: 1. chronic microcytic anemia - no active signs of bleeding - occult blood negative - blood transfusion and repeat H & H 2. history of recurrent UTI - check urinalysis and send for culture 3. dementia - not on medications - continue to assist and monitor 4. hypokalemia - replaced with kdur, will repeat potassium levels 5. DVT prophylaxis - holding medical anticoagulation due to anemia - anti embolic socks for now
[2018-09-04 12:26] LABS: ANION GAP 11.4; CHLORIDE,CL 109 mmol/L (101-111); SODIUM,NA 139 mmol/L (135-145)
[2018-09-04] MEDS ORDERED: Potassium Chloride 10 MEQ Tab.ER PO ONE (13:45)
[2018-09-04 17:29] VITALS: BP 160/88
== END 2018-09-04 17:45 | disposition critical access hospital (66) | DRG 812 ==
LOC: DL.ED 11:20 → DL.MS 14:30 → DL.ED 14:38 → UNDOADMIN 14:38 → DL.MS 14:38
PROVIDERS: ADMIT Internal Medicine; ATTEND Internal Medicine
PROC: 30233N1 Transfusion of Nonautologous Red Blood Cells into Peripheral Vein, Percutaneous Approach (ICD-10-PCS; principal; 2018-09-03)
DX: D50.9 Iron deficiency anemia, unspecified (principal); F41.9 Anxiety disorder, unspecified; G30.9 Alzheimer's disease, unspecified; F02.80 Dementia in other diseases classified elsewhere, unspecified severity, without behavioral disturbance, psychotic disturbance, mood disturbance, and anxiety; E53.8 Deficiency of other specified B group vitamins; Z90.49 Acquired absence of other specified parts of digestive tract; E87.6 Hypokalemia; Z91.048 Other nonmedicinal substance allergy status; Z79.899 Other long term (current) drug therapy; D64.9 Anemia, unspecified; F03.90 Unspecified dementia, unspecified severity, without behavioral disturbance, psychotic disturbance, mood disturbance, and anxiety; Z91.09 Other allergy status, other than to drugs and biological substances
CPT/HCPCS: 36415; 36430; 71045; 80053; 82272; 83605; 83735; 84484; 85025; 86850; 86900; 86901; 86920 ×3; 86922 ×3; 87040; 93005; 96360; 96361; 99285; J7030; P9016; 80048; 81001; 85014; 85018; 87086; 99284; A9270-GY

== ENCOUNTER 2019-05-31 10:45 | Observation (INO) | payer OTHER, MEDICARE ==
[2019-05-31 11:30] LABS: ANION GAP 11.6 mEq/L (7-13); CHLORIDE,CL 106 mmol/L (98-107); SODIUM,NA 142 mmol/L (136-145)
--- NOTE | 2019-05-31 11:37 | EDM.PDOC ---
ED HPI GENERAL MEDICAL PROBLEM - General Chief Complaint: General Stated Complaint: HEMOGLOBIN IS AT 6 Time Seen by Provider: 05/31/19 11:20 Source of Information: Reports: Patient History Limitations: Reports: No Limitations - History of Present Illness INITIAL COMMENTS - FREE TEXT/NARRATIVE: This 84 yo [place] a [place]. The [place] provider (visited with the patient via telemed yesterday) called the patient's daughter this morning and advised them to come directly to the ED due to a low hemoglobin level. The patient's daughter reports the patient has been more "combative" lately. The patient does have a history of iron deficiency anemia and has had blood transfusions in the past. The patient has been seen at the [place] and has also been seen at the [facility] for anemia, but they have not been able to figure out why her hemoglobin is low. Onset: Gradual, Unknown/Unsure Duration: Constant, Getting Worse Location: Reports: Other Quality: Reports: Other Severity: Moderate Improves with: Reports: None Worsens with: Reports: None Context: Reports: Other Associated Symptoms: Reports: No Other Symptoms - Related Data Allergies Allergy/AdvReac Type Severity Reaction Status Date / Time iodine Allergy Cannot Verified 05/31/19 11:01 Remember Home Meds: Home Meds Cyanocobalamin (Vitamin B-12) [Cyanocobalamin Injection] 1,000 mcg IM ASDIRECTED 10/14/16 [History] Past Medical History HEENT History: Reports: Other (See Below) Other HEENT History: dentures Gastrointestinal History: Reports: GI Bleed 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: Neurological History: Reports: Alzheimers Disease Psychiatric History: Reports: Anxiety Hematologic History: Reports: Anemia, B12 Deficiency Oncologic (Cancer) History: Reports: Breast - Past Surgical History HEENT Surgical History: Reports: None GI Surgical History: Reports: Appendectomy, Cholecystectomy Female Surgical History: Reports: Mastectomy Other Female Surgeries/Procedures: Left breast removed Neurological Surgical History: Reports: None Oncologic Surgical History: Reports: Mastectomy Other Oncologic Surgeries/Procedures: Left breast removal Social & Family History - Family History Family Medical History: Noncontributory - Tobacco Use Smoking Status *Q: Former Smoker Years of Tobacco use: 40 Used Tobacco, but Quit: Yes Month/Year Tobacco Last Used: 04/2015 - Caffeine Use Caffeine Use: Reports: None - Recreational Drug Use Recreational Drug Use: No ED ROS GENERAL - Review of Systems Review Of Systems: Comprehensive ROS is negative, except as noted in HPI. ED EXAM, GENERAL - Physical Exam Exam: See Below Exam Limited By: No Limitations General Appearance: Alert, WD/WN, Moderate Distress Eye Exam: Bilateral Eye: EOMI, Normal Inspection, PERRL Ears: Normal External Exam, Normal Canal, Hearing Grossly Normal, Normal TMs Nose: Normal Inspection, Normal Mucosa, No Blood Throat/Mouth: Normal Inspection, Normal Lips, Normal Teeth, Normal Gums, Normal Oropharynx, Normal Voice, No Airway Compromise Head: Atraumatic, Normocephalic Neck: Normal Inspection, Supple, Non-Tender, Full Range of Motion Respiratory/Chest: No Respiratory Distress, Lungs Clear, Normal Breath Sounds, No Accessory Muscle Use, Chest Non-Tender Cardiovascular: Normal Peripheral Pulses, Regular Rate, Rhythm, No Edema, No Gallop, No JVD, No Murmur, No Rub GI/Abdominal: Normal Bowel Sounds, Soft, Non-Tender, No Organomegaly, No Distention, No Abnormal Bruit, No Mass (Female) Exam: Deferred Rectal (Female) Exam: Deferred Extremities: Normal Inspection, Normal Range of Motion, Non-Tender, Normal Capillary Refill, No Pedal Edema Neurological: Alert, Oriented, CN II-XII Intact, Normal Cognition, Normal Gait, Normal Reflexes, No Motor/Sensory Deficits Psychiatric: Normal Affect, Normal Mood Skin Exam: Pallor Lymphatic: No Adenopathy Course - Vital Signs Last Recorded V/S: Last Vital Signs Temp 36.4 C 05/31/19 11:06 Pulse 73 05/31/19 11:06 Resp 16 05/31/19 11:06 BP 125/51 L 05/31/19 11:13 Pulse Ox 100 05/31/19 11:06 - Orders/Labs/Meds Orders: Active Orders 24 hr Category Date Time Status Admission Diagnosis [ADT] Stat ADT 05/31/19 12:09 Ordered Admission Status [Patient Status] [ADT] Routine ADT 05/31/19 12:09 Ordered RED BLOOD CELLS LP [BBK] Stat Lab 05/31/19 11:02 Received TYPE AND SCREEN [BBK] Stat Lab 05/31/19 11:02 Received UA RFX SHEILA AND CULT IF INDIC [URIN] Urgent Lab 05/31/19 10:47 Ordered Labs: Laboratory Tests 05/31/19 05/31/19 Range/Units 11:02 11:02 WBC 7.0 (5.0-10.0) 10^3/uL RBC 3.53 L (4.2-5.4) 10^6/uL Hgb 6.6 L* D (12.0-16.0) g/dL Hct 24.5 L (37.0-47.0) % MCV 69.4 L D (80-100) fL MCH 18.7 L (27.0-34.0) pg MCHC 26.9 L (33.0-35.0) g/dL Plt Count 301 (150-450) 10^3/uL Add Manual Diff Yes Neutrophils % (Manual) 77 H (42-75) % Lymphocytes % (Manual) 16 L (20-50) % Monocytes % (Manual) 4 (2-8) % Eosinophils % (Manual) 3 (1-3) % Sodium 142 (136-145) mmol/L Potassium 3.6 (3.5-5.1) mmol/L Chloride 106 (98-107) mmol/L Carbon Dioxide 28 (21-32) mmol/L Anion Gap 11.6 (7-13) mEq/L BUN 9 (7-18) mg/dL Creatinine 0.71 (0.55-1.02) mg/dL Est Cr Clr Drug Dosing 53.07 mL/min Estimated GFR (MDRD) > 60 BUN/Creatinine Ratio 12.7 (No establ ref range) Glucose 130 H (74-99) mg/dL Calcium 8.2 L (8.5-10.1) mg/dL Total Bilirubin 0.6 (0.2-1.0) mg/dL AST 8 L (15-37) U/L ALT 14 (14-59) U/L Alkaline Phosphatase 111 (46-116) U/L Total Protein 6.7 (6.4-8.2) g/dL Albumin 3.3 L (3.4-5.0) g/dL Globulin 3.4 Albumin/Globulin Ratio 0.97 Departure - Departure Time of Disposition: 12:13 Disposition: Admitted As Inpatient 66 Condition: Fair Clinical Impression: Anemia Qualifiers: Anemia type: unspecified type Qualified Code(s): D64.9 - Anemia, unspecified - Discharge Information *PRESCRIPTION DRUG MONITORING PROGRAM REVIEWED*: Not Applicable *COPY OF PRESCRIPTION DRUG MONITORING REPORT IN PATIENT KEVIN: Not Applicable Forms: ED Department Discharge Care Plan Goals: Discussed the patient's history, lab and examination results with Dr. Hopson. Dr. Hopson accepted the patient for continued evaluation and management as an observation patient here at [facility]. A call was placed to the [facility] to advise them of the admission. Sepsis Event Note - Evaluation Sepsis Screening Result: No Definite Risk - Focused Exam Vital Signs: Vital Signs Temp Pulse Resp BP BP Pulse Ox 05/31/19 11:13 125/51 L 05/31/19 11:06 36.4 C 73 16 150/121 H 100 Date Exam was Performed: 05/31/19 Time Exam was Performed: :13 - My Orders Last 24 Hours: My Active Orders 05/31/19 10:47 UA RFX SHEILA AND CULT IF INDIC [URIN] Urgent 05/31/19 11:02 RED BLOOD CELLS LP [BBK] Stat TYPE AND SCREEN [BBK] Stat 05/31/19 12:09 Admission Diagnosis [ADT] Stat Admission Status [Patient Status] [ADT] Routine - Assessment/Plan Last 24 Hours: My Active Orders 05/31/19 10:47 UA RFX SHEILA AND CULT IF INDIC [URIN] Urgent 05/31/19 11:02 RED BLOOD CELLS LP [BBK] Stat TYPE AND SCREEN [BBK] Stat 05/31/19 12:09 Admission Diagnosis [ADT] Stat Admission Status [Patient Status] [ADT] Routine
[2019-05-31] MEDS ORDERED: Acetaminophen 325 MG Tab PO PRN (12:48)
[2019-05-31] MEDS ORDERED: Sodium Chloride 0.9% 10 ML Syringe FLUSH PRN (12:48)
--- NOTE | 2019-05-31 18:18 | HP ---
CHIEF COMPLAINT: Anemia. HISTORY OF PRESENT ILLNESS: The patient is an 84-year-old lady with past medical history of anemia, Alzheimer dementia, B12 deficiency, who was admitted through the emergency room. Apparently, the patient had a Telemedicine visit with the [facility] yesterday, and the [facility] called the daughter this morning and advised them to go to the emergency room because of a low hemoglobin level. The patient's daughter reports that the patient has been more combative lately. The patient does have history of iron deficiency anemia and had blood transfusion in the past. The patient has been seen at the [place] and also has been seen at the [facility] for her anemia, but they have not been able to figure out why her hemoglobin is still low. The patient denies though any abdominal pain, headache, fever, chills, chest pain, shortness of breath, nor any other complaints. PAST MEDICAL HISTORY: As in HPI. The patient also has history of appendectomy, cholecystectomy, and left mastectomy. FAMILY HISTORY: Noncontributory. SOCIAL HISTORY: The patient is a former smoker, quit in 2016. The patient is non-alcohol drinker and no illicit drug use. REVIEW OF SYSTEMS: As in HPI. The rest of the review of systems is negative. HOME MEDICATIONS: Vitamin B12 1000 mcg IM monthly. PHYSICAL EXAMINATION: General: The patient is alert and forgetful, but not in any acute distress. Vital Signs: Blood pressure is 125/51, pulse of 73, respirations of 16, temperature of 36.4, saturation is 100% on room air. SHEENT: Normocephalic. There are pale palpebral conjunctivae. Sclerae anicteric. No JVD. No lymphadenopathy. HEART: Regular rate and rhythm. There is a grade 3/6 systolic ejection murmur. No gallops. No rubs. LUNGS: Equal bilaterally. No crackles. No wheezing. ABDOMEN: Soft, nontender. Bowel sounds positive. EXTREMITIES: Negative for any significant pedal edema. No calf tenderness. LABORATORY DATA: CBC: WBC is 7, hemoglobin is 6.6, hematocrit is 24.5, platelets are 301. Comp panel: Glucose is 130, calcium was 8.2. The rest of the panel unremarkable. ADMITTING DIAGNOSES: 1. Symptomatic anemia. 2. History of B12 deficiency anemia. 3. Alzheimer dementia. TREATMENT PLAN: The patient is going to be admitted to observation. She will be given 2 units packed RBC. We will recheck a CBC in the morning and the rest of the management as necessary. [facility] /[id number]
[2019-06-01 07:35] VITALS: BP 154/69; PULSE 68
--- NOTE | 2019-06-01 10:38 | PN ---
DATE: 06/01/2019 SUBJECTIVE: The patient received 2 units of packed RBC yesterday and the patient did well. The patient this morning has more energy and feeling good, although the patient is still confused from her Alzheimer's dementia. She denies though any headache, chest pain, shortness of breath, nor any other complaints. LABORATORY WORKUP THIS MORNING: CBC; WBC is 5.5, hemoglobin is 9, and hematocrit is 30 (improvement), and platelets 260. OBJECTIVE: Vital Signs: Blood pressure is 154/69, pulse 68, respirations 18, temperature of 97, saturations 99% on room air. Heart: Regular rate and rhythm. Normal S1 and S2. No gallops. No rubs. Lungs: Equal bilaterally. No crackles. No wheezing. Abdomen: Soft, nontender. Bowel sounds positive. Extremities: Negative for any significant pedal edema. No calf tenderness. PLAN: We will discharge the patient home today, and we will have her follow up with her primary care physician in 7 to 10 days with a recheck of CBC. [facility] /[id number]
--- NOTE | 2019-06-01 12:07 | DISCH ---
FINAL DIAGNOSES: 1. Symptomatic anemia. 2. History of B12 deficiency anemia. 3. Alzheimer's dementia. BRIEF HISTORY OF PRESENT ILLNESS: Please see H and P. PERTINENT LAB ON ADMISSION: See H and P. HOSPITAL COURSE: The patient was admitted to observation, and the patient was given blood transfusion, 2 units of packed RBC, which she tolerated well and followup CBC showed improvement of the patient's hemoglobin and hematocrit, and the patient was subsequently discharged. CONDITION ON DISCHARGE: Improved. FOLLOWUP: The patient is to follow up with her primary care provider in 1 week with recheck of CBC. [facility] /[id number]
== END 2019-06-01 11:20 | disposition home or self-care (01) ==
LOC: DL.ED 10:45 → DL.MS 12:09
PROVIDERS: ADMIT Internal Medicine; ATTEND Internal Medicine
DX: D64.9 Anemia, unspecified (principal); G30.9 Alzheimer's disease, unspecified; F02.80 Dementia in other diseases classified elsewhere, unspecified severity, without behavioral disturbance, psychotic disturbance, mood disturbance, and anxiety; Z87.891 Personal history of nicotine dependence; Z79.899 Other long term (current) drug therapy; Z86.2 Personal history of diseases of the blood and blood-forming organs and certain disorders involving the immune mechanism; Z91.041 Radiographic dye allergy status
CPT/HCPCS: 36415; 36430; 80053; 81001; 85025; 86850; 86900; 86901; 86920; 86922; 87077; 87086; 87186; 99284; A9270; G0378; P9016; 99217; 99218

== ENCOUNTER 2020-04-20 09:37 | Observation (INO) | payer OTHER, MEDICARE ==
[2020-04-20 11:05] LABS: CORONAVIRUS COVID-19 NAA NEGATIVE (NEGATIVE)
[2020-04-20] MEDS ORDERED: Sodium Chloride 0.9% 10 ML Syringe FLUSH PRN (11:13)
--- NOTE | 2020-04-20 11:25 | EDM.PDOC ---
<Matt Osuna Johan - Last Filed: 04/20/20 12:24> ED HPI GENERAL MEDICAL PROBLEM - General Chief Complaint: General Stated Complaint: EXPOSURE TO COVID/DEHYDRATION SENT FROM [place] Time Seen by Provider: 04/20/20 11:19 Source of Information: Reports: Family History Limitations: Reports: Altered Mental Status - History of Present Illness INITIAL COMMENTS - FREE TEXT/NARRATIVE: 85 y/o F brought in by daughter for evaluation of increased confusion and evaluation of covid exposure. Daughter states over the last few weeks pt has been increasingly confused and is more restless. Also has a hx of iron deficiency anemia and was transfused 2 units in January. Daughter would like pt screened for COVID and worked up for increased confusion. Pt is demented and has no complaints. Daughter states pt has expressed no physical complaints. Is on an antibiotic prophylactically for UTIs. Onset: Gradual Duration: Day(s): Location: Reports: Generalized Improves with: Reports: None Worsens with: Reports: None Associated Symptoms: Reports: No Other Symptoms - Related Data Allergies Allergy/AdvReac Type Severity Reaction Status Date / Time iodine Allergy Cannot Verified 04/20/20 10:33 Remember Home Meds: Home Meds Cyanocobalamin (Vitamin B-12) [Cyanocobalamin Injection] 1,000 mcg IM .MONTHLY 10/14/16 [History] Past Medical History HEENT History: Reports: Other (See Below) Other HEENT History: dentures Cardiovascular History: Reports: Heart Murmur Respiratory History: Reports: None Gastrointestinal History: Reports: GI Bleed Genitourinary History: Reports: Urinary Incontinence, UTI, Recurrent OPTICAL EFFECTS 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: Musculoskeletal History: Reports: None Neurological History: Reports: Alzheimers Disease Psychiatric History: Reports: Anxiety, Mood Swings Endocrine/Metabolic History: Reports: None Hematologic History: Reports: Anemia, B12 Deficiency Immunologic History: Reports: None Oncologic (Cancer) History: Reports: Breast Dermatologic History: Reports: None - Infectious Disease History Infectious Disease History: Reports: Chicken Pox - Past Surgical History Head Surgeries/Procedures: Reports: None HEENT Surgical History: Reports: None Cardiovascular Surgical History: Reports: None GI Surgical History: Reports: Appendectomy, Cholecystectomy Female Surgical History: Reports: Mastectomy Other Female Surgeries/Procedures: Left breast removed Neurological Surgical History: Reports: None Oncologic Surgical History: Reports: Mastectomy Other Oncologic Surgeries/Procedures: Left breast removal Social & Family History - Family History Family Medical History: No Pertinent Family History - Caffeine Use Caffeine Use: Reports: Coffee ED ROS GENERAL - Review of Systems Review Of Systems: Unable To Obtain Reason Not Obtained: dementia ED EXAM, GENERAL - Physical Exam Exam: See Below Exam Limited By: No Limitations General Appearance: Alert, No Apparent Distress Eye Exam: Bilateral Eye: PERRL, Other (pale conjuctiva) Ears: Normal External Exam, Normal Canal, Hearing Grossly Normal, Normal TMs Ear Exam: Bilateral Ear: Auricle Normal, Canal Normal, TM normal Nose: Normal Inspection, Normal Mucosa, No Blood Throat/Mouth: Normal Inspection, Normal Lips, Normal Teeth, Normal Gums, Normal Oropharynx, Normal Voice, No Airway Compromise Head: Atraumatic, Normocephalic Neck: Normal Inspection, Supple, Non-Tender, Full Range of Motion Respiratory/Chest: No Respiratory Distress, Lungs Clear, Normal Breath Sounds, No Accessory Muscle Use, Chest Non-Tender Cardiovascular: Normal Peripheral Pulses, Regular Rate, Rhythm, No Edema, No JVD, Other (harsh systolic mitral murmur) GI/Abdominal: Normal Bowel Sounds, Soft, Non-Tender, Pelvis Stable (Female) Exam: Deferred Rectal (Female) Exam: Deferred Extremities: Normal Inspection, Normal Range of Motion, Non-Tender, Normal Capillary Refill, No Pedal Edema Neurological: Confused, Other (hx of severe dementia) Skin Exam: Warm, Dry, Intact, Normal Color, No Rash Departure - Departure Time of Disposition: 12:25 Disposition: Admitted As Inpatient 66 Condition: Good Clinical Impression: Anemia Qualifiers: Anemia type: unspecified type Qualified Code(s): D64.9 - Anemia, unspecified - Discharge Information *PRESCRIPTION DRUG MONITORING PROGRAM REVIEWED*: Not Applicable *COPY OF PRESCRIPTION DRUG MONITORING REPORT IN PATIENT KEVIN: Not Applicable Forms: ED Department Discharge Sepsis Event Note (ED) - Evaluation Sepsis Screening Result: No Definite Risk <Nikolas Oh - Last Filed: 04/20/20 12:26> Course - Vital Signs Last Recorded V/S: Last Vital Signs Temp 96.1 F L 04/20/20 10:00 Pulse 88 04/20/20 10:00 Resp 18 04/20/20 10:00 BP 88/52 L 04/20/20 10:00 Pulse Ox 100 04/20/20 10:00 - Orders/Labs/Meds Orders: Active Orders 24 hr Category Date Time Status Admission Status [Patient Status] [ADT] Routine ADT 04/20/20 12:17 Active Patient Status [ADT] Routine ADT 04/20/20 12:19 Active EKG Documentation Completion [RC] STAT Care 04/20/20 11:52 Active Insert Urinary Catheter [OM.PC] Stat Care 04/20/20 11:14 Ordered Notify Provider [RC] PRN Care 04/20/20 11:47 Active Peripheral IV Care [RC] . DIRECTED Care 04/20/20 11:14 Active Verify Patient Consent Obtain [RC] ASDIRECTED Care 04/20/20 11:44 Active RED BLOOD CELLS LP [BBK] Stat Lab 04/20/20 11:30 Received TYPE AND SCREEN [BBK] Stat Lab 04/20/20 11:30 Received UA RFX SHEILA AND CULT IF INDIC [URIN] Stat Lab 04/20/20 11:14 Ordered Sodium Chloride 0.9% [Normal Saline] 500 ml Med 04/20/20 11:30 Active IV .BOLUS Sodium Chloride 0.9% [Saline Flush] Med 04/20/20 11:13 Active 10 ml FLUSH ASDIRECTED PRN Peripheral IV Insertion Adult [OM.PC] Stat Oth 04/20/20 11:14 Ordered Transfuse Red Blood Cells [COMM] Stat Oth 04/20/20 11:41 Ordered Transfuse Red Blood Cells [COMM] Stat Oth 04/20/20 11:41 Ordered Medication Orders Sodium Chloride (Normal Saline) 500 mls @ 999 mls/hr IV .BOLUS MILTON Last Admin: 04/20/20 11:23 Dose: 999 mls/hr Documented by: DORI Sodium Chloride (Saline Flush) 10 ml FLUSH ASDIRECTED PRN PRN Reason: Keep Vein Open Last Admin: 04/20/20 11:23 Dose: 10 ml Documented by: DORI Labs: Laboratory Tests 04/20/20 04/20/20 04/20/20 Range/Units 10:17 11:30 11:30 WBC 4.9 L (5.0-10.0) 10^3/uL RBC 2.01 L (4.2-5.4) 10^6/uL Hgb 4.6 L* D (12.0-16.0) g/dL Hct 17.0 L* (37.0-47.0) % MCV 84.6 D (80-100) fL MCH 22.9 L (27.0-34.0) pg MCHC 27.1 L (33.0-35.0) g/dL Plt Count 172 D (150-450) 10^3/uL Neut % (Auto) 83.0 H (42.2-75.2) % Lymph % (Auto) 7.7 L (20.5-50.1) % [place] % (Auto) 7.5 (2-8) % Eos % (Auto) 0.2 L (1.0-3.0) % Baso % (Auto) 1.6 H (0.0-1.0) % Sodium 140 (136-145) mmol/L Potassium 3.8 (3.5-5.1) mmol/L Chloride 104 (98-107) mmol/L Carbon Dioxide 27 (21-32) mmol/L Anion Gap 12.8 (7-13) mEq/L BUN 13 (7-18) mg/dL Creatinine 0.59 (0.55-1.02) mg/dL Est Cr Clr Drug Dosing 57.67 mL/min Estimated GFR (MDRD) > 60 BUN/Creatinine Ratio 22.0 (No establ ref range) Glucose 115 H (74-99) mg/dL Calcium 8.1 L (8.5-10.1) mg/dL Total Bilirubin 0.8 (0.2-1.0) mg/dL AST 9 L (15-37) U/L ALT 14 (14-59) U/L Alkaline Phosphatase 96 (46-116) U/L Total Protein 5.9 L (6.4-8.2) g/dL Albumin 3.1 L (3.4-5.0) g/dL Globulin 2.8 Albumin/Globulin Ratio 1.11 Influenza Type A RNA Negative (NEGATIVE) Influenza Type B RNA Negative (NEGATIVE) SARS-CoV-2 RNA (DONA) Negative (NEGATIVE) Meds: Medications Generic Name Dose Route Start Last Admin Trade Name Freq PRN Reason Stop Dose Admin Sodium Chloride 500 mls @ 999 mls/hr 04/20/20 11:30 04/20/20 11:23 Normal Saline IV 999 mls/hr .BOLUS MILTON Administration Sodium Chloride 10 ml 04/20/20 11:13 04/20/20 11:23 Saline Flush FLUSH 10 ml ASDIRECTED PRN Administration Keep Vein Open Discontinued Medications Generic Name Dose Route Start Last Admin Trade Name Shelby PRN Reason Stop Dose Admin Furosemide 20 mg 04/20/20 11:41 Lasix IVPUSH 04/20/20 11:42 NOW ONE Sepsis Event Note (ED) - Focused Exam Vital Signs: Vital Signs Temp Pulse Resp BP Pulse Ox 04/20/20 10:00 96.1 F L 88 18 88/52 L 100 - My Orders Last 24 Hours: My Active Orders 04/20/20 11:13 Sodium Chloride 0.9% [Saline Flush] 10 ml FLUSH ASDIRECTED PRN 04/20/20 11:14 Insert Urinary Catheter [OM.PC] Stat Peripheral IV Care [RC] . DIRECTED UA RFX SHEILA AND CULT IF INDIC [URIN] Stat Peripheral IV Insertion Adult [OM.PC] Stat 04/20/20 11:30 RED BLOOD CELLS LP [BBK] Stat TYPE AND SCREEN [BBK] Stat Sodium Chloride 0.9% [Normal Saline] 500 ml IV .BOLUS 04/20/20 11:41 Transfuse Red Blood Cells [COMM] Stat Transfuse Red Blood Cells [COMM] Stat 04/20/20 11:44 Verify Patient Consent Obtain [RC] ASDIRECTED 04/20/20 11:47 Notify Provider [RC] PRN 04/20/20 12:17 Admission Status [Patient Status] [ADT] Routine 04/20/20 12:19 Patient Status [ADT] Routine - Assessment/Plan Last 24 Hours: My Active Orders 04/20/20 11:13 Sodium Chloride 0.9% [Saline Flush] 10 ml FLUSH ASDIRECTED PRN 04/20/20 11:14 Insert Urinary Catheter [OM.PC] Stat Peripheral IV Care [RC] . DIRECTED UA RFX SHEILA AND CULT IF INDIC [URIN] Stat Peripheral IV Insertion Adult [OM.PC] Stat 04/20/20 11:30 RED BLOOD CELLS LP [BBK] Stat TYPE AND SCREEN [BBK] Stat Sodium Chloride 0.9% [Normal Saline] 500 ml IV .BOLUS 04/20/20 11:41 Transfuse Red Blood Cells [COMM] Stat Transfuse Red Blood Cells [COMM] Stat 04/20/20 11:44 Verify Patient Consent Obtain [RC] ASDIRECTED 04/20/20 11:47 Notify Provider [RC] PRN 04/20/20 12:17 Admission Status [Patient Status] [ADT] Routine 04/20/20 12:19 Patient Status [ADT] Routine
[2020-04-20] MEDS ORDERED: Sodium Chloride 0.9% 500 ML IV SCH (11:30)
[2020-04-20] MEDS ORDERED: Furosemide 40 MG/4 ML VIAL IVPUSH ONE (11:41)
[2020-04-20 11:56] LABS: ANION GAP 12.8 mEq/L (7-13); CHLORIDE,CL 104 mmol/L (98-107); SODIUM,NA 140 mmol/L (136-145)
[2020-04-20] MEDS ORDERED: Acetaminophen 325 MG Tab PO PRN (12:44)
[2020-04-20] MEDS ORDERED: Cyanocobalamin (Vitamin B12) 1,000 MCG/ML SDV IM SCH (13:00)
--- NOTE | 2020-04-20 14:00 | PCM.HP ---
H&P History of Present Illness - General Date of Service: 04/20/20 Admit Problem/Dx: Admission Diagnosis/Problem Admission Diagnosis/Problem Anemia Source of Information: Family History Limitations: Reports: Altered Mental Status - History of Present Illness Initial Comments - Free Text/Narative: Patient is an 85-year-old female with a medical history of Alzheimer's dementia, breast cancer, fibromyalgia, chronic anemia who presented to the ER with complaints of generalized weakness and was found to have a hemoglobin of 4.6. History is obtained from patient daughter due to her dementia. Patient has had chronic anemia for the past 2 to 3 years. She has undergone extensive evaluation to determine the cause of anemia at [facility] and or through hospital but no etiology has been found. Patient has required blood transfusions every 2 to 3 months and has also gotten iron infusion. She gets her medical care at the [facility]. today, her daughter noticed that she was weaker than usual and appeared pale. Patient's last transfusion was about 3 months ago. She is supposed to follow-up with her primary care doctor in 2 days for routine visit and lab draw, however daughter brought her to the ER today due to concerns about her hemoglobin. Patient currently has no complaints except for generalized weakness. - Related Data Allergies/Adverse Reactions: Allergies Allergy/AdvReac Type Severity Reaction Status Date / Time iodine Allergy Cannot Verified 04/20/20 10:33 Remember shellfish derived Allergy Cannot Verified 04/20/20 13:00 Remember Home Medications: Home Meds Cyanocobalamin (Vitamin B-12) [Cyanocobalamin Injection] 1,000 mcg IM .MONTHLY 10/14/16 [History] Past Medical History HEENT History: Reports: Other (See Below) Other HEENT History: dentures Cardiovascular History: Reports: Heart Murmur Respiratory History: Reports: None Gastrointestinal History: Reports: GI Bleed Genitourinary History: Reports: Urinary Incontinence, UTI, Recurrent 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: Musculoskeletal History: Reports: None Neurological History: Reports: Alzheimers Disease Psychiatric History: Reports: Anxiety, Dementia, Mood Swings Endocrine/Metabolic History: Reports: None Hematologic History: Reports: Anemia, B12 Deficiency, Blood Transfusion(s) Immunologic History: Reports: None Oncologic (Cancer) History: Reports: Breast Dermatologic History: Reports: None - Infectious Disease History Infectious Disease History: Reports: Chicken Pox - Past Surgical History Head Surgeries/Procedures: Reports: None HEENT Surgical History: Reports: Laser Surgery Cardiovascular Surgical History: Reports: None GI Surgical History: Reports: Appendectomy, Cholecystectomy, Colonoscopy Female Surgical History: Reports: Mastectomy Other Female Surgeries/Procedures: Left breast removed Neurological Surgical History: Reports: None Oncologic Surgical History: Reports: Biopsy of Breast, Mastectomy Other Oncologic Surgeries/Procedures: Left breast removal Social & Family History - Family History Family Medical History: No Pertinent Family History - Tobacco Use Tobacco Use Status *Q: Current Some Day Tobacco User Years of Tobacco use: 70 Packs/Tins Daily: 0.1 - Caffeine Use Caffeine Use: Reports: Soda, Tea - Recreational Drug Use Recreational Drug Use: No H&P Review of Systems - Review of Systems: Review Of Systems: See Below General: Reports: Weakness HEENT: Reports: No Symptoms Pulmonary: Reports: No Symptoms Cardiovascular: Reports: No Symptoms Gastrointestinal: Reports: No Symptoms Genitourinary: Reports: No Symptoms Musculoskeletal: Reports: No Symptoms Skin: Reports: No Symptoms Psychiatric: Reports: No Symptoms Neurological: Reports: No Symptoms Hematologic/Lymphatic: Reports: Anemia Immunologic: Reports: No Symptoms Exam - Exam Exam: See Below - Vital Signs Vital Signs: Last Vital Signs Temp 97.8 F 04/20/20 12:45 Pulse 97 04/20/20 12:45 Resp 18 04/20/20 12:45 BP 121/62 04/20/20 12:45 Pulse Ox 97 04/20/20 12:45 Weight: 158 lb 6.4 oz - Exam General: Alert, Oriented, 4 HEENT: PERRLA, Hearing Intact, Mucosa Moist & [place], Nares Patent, Normal Nasal Septum, Posterior Pharynx Clear, Conjunctiva Clear, EOMI, EACs Clear, TMs Clear Neck: Supple, Trachea Midline, 2 Lungs: Clear to Auscultation, Normal Respiratory Effort Cardiovascular: Regular Rate, Regular Rhythm, Systolic Murmur GI/Abdominal Exam: Normal Bowel Sounds, Soft, Non-Tender, No Organomegaly, No Distention, No Abnormal Bruit, No Mass, Pelvis Stable Back Exam: Normal Inspection, Full Range of Motion, NT Extremities: Normal Inspection, Normal Range of Motion, Non-Tender, No Pedal Edema, Normal Capillary Refill Skin: Warm, Dry, Intact Neurological: Cranial Nerves Intact, Reflexes Equal Bilateral Neuro Extensive - Mental Status: Alert, Disorientation to Time Neuro Extensive - Motor, Sensory, Reflexes: CN II-XII Intact, Normal Gait, Norm al Reflexes Psychiatric: Alert, Normal Affect, Normal Mood - Patient Data Lab Results Last 24 hrs: Laboratory Results - last 24 hr 04/20/20 04/20/20 04/20/20 Range/Units 10:17 11:30 11:30 WBC 4.9 L (5.0-10.0) 10^3/uL RBC 2.01 L (4.2-5.4) 10^6/uL Hgb 4.6 L* D (12.0-16.0) g/dL Hct 17.0 L* (37.0-47.0) % MCV 84.6 D (80-100) fL MCH 22.9 L (27.0-34.0) pg MCHC 27.1 L (33.0-35.0) g/dL Plt Count 172 D (150-450) 10^3/uL Neut % (Auto) 83.0 H (42.2-75.2) % Lymph % (Auto) 7.7 L (20.5-50.1) % [place] % (Auto) 7.5 (2-8) % Eos % (Auto) 0.2 L (1.0-3.0) % Baso % (Auto) 1.6 H (0.0-1.0) % Sodium 140 (136-145) mmol/L Potassium 3.8 (3.5-5.1) mmol/L Chloride 104 (98-107) mmol/L Carbon Dioxide 27 (21-32) mmol/L Anion Gap 12.8 (7-13) mEq/L BUN 13 (7-18) mg/dL Creatinine 0.59 (0.55-1.02) mg/dL Est Cr Clr Drug Dosing 57.67 mL/min Estimated GFR (MDRD) > 60 BUN/Creatinine Ratio 22.0 (No establ ref range) Glucose 115 H (74-99) mg/dL Calcium 8.1 L (8.5-10.1) mg/dL Total Bilirubin 0.8 (0.2-1.0) mg/dL AST 9 L (15-37) U/L ALT 14 (14-59) U/L Alkaline Phosphatase 96 (46-116) U/L Total Protein 5.9 L (6.4-8.2) g/dL Albumin 3.1 L (3.4-5.0) g/dL Globulin 2.8 Albumin/Globulin Ratio 1.11 Influenza Type A RNA Negative (NEGATIVE) Influenza Type B RNA Negative (NEGATIVE) SARS-CoV-2 RNA (DONA) Negative (NEGATIVE) Blood Type Gel Antibody Screen Crossmatch 04/20/20 Range/Units 11:30 WBC (5.0-10.0) 10^3/uL RBC (4.2-5.4) 10^6/uL Hgb (12.0-16.0) g/dL Hct (37.0-47.0) % MCV (80-100) fL MCH (27.0-34.0) pg MCHC (33.0-35.0) g/dL Plt Count (150-450) 10^3/uL Neut % (Auto) (42.2-75.2) % Lymph % (Auto) (20.5-50.1) % [place] % (Auto) (2-8) % Eos % (Auto) (1.0-3.0) % Baso % (Auto) (0.0-1.0) % Sodium (136-145) mmol/L Potassium (3.5-5.1) mmol/L Chloride (98-107) mmol/L Carbon Dioxide (21-32) mmol/L Anion Gap (7-13) mEq/L BUN (7-18) mg/dL Creatinine (0.55-1.02) mg/dL Est Cr Clr Drug Dosing mL/min Estimated GFR (MDRD) BUN/Creatinine Ratio (No establ ref range) Glucose (74-99) mg/dL Calcium (8.5-10.1) mg/dL Total Bilirubin (0.2-1.0) mg/dL AST (15-37) U/L ALT (14-59) U/L Alkaline Phosphatase (46-116) U/L Total Protein (6.4-8.2) g/dL Albumin (3.4-5.0) g/dL Globulin Albumin/Globulin Ratio Influenza Type A RNA (NEGATIVE) Influenza Type B RNA (NEGATIVE) SARS-CoV-2 RNA (DONA) (NEGATIVE) Blood Type A NEGATIVE Gel Antibody Screen Negative Crossmatch See Detail Result Diagrams: 04/20/20 11:30 04/20/20 11:30 Problem List Initiated/Reviewed/Updated: Yes Orders Last 24hrs: Active Orders 24 hr Category Date Time Status Admission Status [Patient Status] [ADT] Routine ADT 04/20/20 12:17 Active Patient Status [ADT] Routine ADT 04/20/20 12:19 Active Antiembolic Devices [RC] PER UNIT ROUTINE Care 04/20/20 12:47 Ordered Cardiac Monitoring [RC] CONTINUOUS Care 04/20/20 12:45 Ordered Insert Urinary Catheter [OM.PC] Stat Care 04/20/20 11:14 Ordered Notify Provider [RC] PRN Care 04/20/20 11:47 Active Oxygen Therapy [RC] PRN Care 04/20/20 12:45 Ordered Up With Assistance [RC] ASDIRECTED Care 04/20/20 12:44 Ordered VTE/DVT Education [RC] PER UNIT ROUTINE Care 04/20/20 12:45 Ordered Verify Patient Consent Obtain [RC] ASDIRECTED Care 04/20/20 11:44 Active Vital Signs [RC] Q4H Care 04/20/20 12:45 Ordered Regular Diet [DIET] Diet 04/20/20 Lunch Ordered BASIC METABOLIC PANEL,BMP [CHEM] AM Lab 04/21/20 05:11 Ordered CBC W/O DIFF,HEMOGRAM [HEME] AM Lab 04/21/20 05:11 Ordered HEMOGLOBIN [HEME] Routine Lab 04/20/20 20:00 Ordered RED BLOOD CELLS LP [BBK] Stat Lab 04/20/20 11:30 Results TYPE AND SCREEN [BBK] Stat Lab 04/20/20 11:30 Results UA RFX SHEILA AND CULT IF INDIC [URIN] Stat Lab 04/20/20 11:14 Ordered WEAK D TEST [BBK] Stat Lab 04/20/20 11:30 Results Acetaminophen [TylenoL] Med 04/20/20 12:44 Ordered 650 mg PO Q4H PRN Sodium Chloride 0.9% [Normal Saline] 500 ml Med 04/20/20 11:30 Active IV .BOLUS Antiembolic Hose [OM.PC] Per Unit Routine Oth 04/20/20 12:45 Ordered Peripheral IV Insertion Adult [OM.PC] Stat Oth 04/20/20 11:14 Ordered Transfuse Red Blood Cells [COMM] Stat Oth 04/20/20 11:41 Ordered Transfuse Red Blood Cells [COMM] Stat Oth 04/20/20 11:41 Ordered Code Status [Resuscitation Status] Routine Resus Stat 04/20/20 13:51 Ordered Medication Orders Acetaminophen (Tylenol) 650 mg PO Q4H PRN PRN Reason: Pain (Mild 1-3)/fever Sodium Chloride (Normal Saline) 500 mls @ 999 mls/hr IV .BOLUS [place] Last Admin: 04/20/20 11:23 Dose: 999 mls/hr Documented by: DORI Assessment/Plan Comment:: Acute on chronic anemia Hemoglobin of 4.6. Transfused with 2 units of packed red blood cells Trend hemoglobin, goal hemoglobin of 7 or above Telemetry CODE STATUS: DNI DNR
[2020-04-21 07:54] LABS: ANION GAP 12.8 mEq/L (7-13); CHLORIDE,CL 106 mmol/L (98-107); SODIUM,NA 141 mmol/L (136-145)
--- NOTE | 2020-04-21 08:24 | PCM.DCSUM1 ---
Discharge Summary - Hospital Course Free Text/Narrative:: Patient is an 85-year-old female with a medical history of Alzheimer's dementia, breast cancer, fibromyalgia, chronic anemia requiring occasional transfusions who presented to the ER with complaints of generalized weakness and was found to have a hemoglobin of 4.6. She has undergone extensive gastrointestinal evaluation to determine the cause of anemia at [facility] and [facility] but no etiology had been found. Patient has required blood transfusions every 2 to 3 months and has also gotten iron infusion. She gets [facility] at [facility]. Patient received 2 units of pRBC and her hemoglobin [id number] at 7.8. She will follow-up with her primary care doctor tomorrow for routine visit and lab draw. I recommend that she sees a contact lens edge buffer/oncologist as I could not find any documentation of a contact lens edge buffer/oncologist evaluation. Diagnosis: Stroke: No - Discharge Data Discharge Date: 04/21/20 Discharge Disposition: Home, Self-Care 01 Condition: Good - Referral to Home Health Primary Care Physician: PCP Unobtainable - Discharge Plan *PRESCRIPTION DRUG MONITORING PROGRAM REVIEWED*: Not Applicable *COPY OF PRESCRIPTION DRUG MONITORING REPORT IN PATIENT KEVIN: Not Applicable Home Medications: Home Meds Cyanocobalamin (Vitamin B-12) [Cyanocobalamin Injection] 1,000 mcg IM .MONTHLY 10/14/16 [History] Sulfamethoxazole/Trimethoprim [Bactrim Ds Tablet] 1 tab PO DAILY 04/20/20 [History] Oxygen Therapy Mode: Room Air Forms: ED Department Discharge Referrals: PCP,Unobtain [Primary Care Provider] - - Discharge Summary/Plan Comment DC Time >30 min.: Yes - General Info Date of Service: 04/21/20 Admission Dx/Problem (Free Text: Admission Diagnosis/Problem Admission Diagnosis/Problem Anemia Subjective Update: Patient seen and examined today. No complains. Functional Status: Reports: Pain Controlled - Review of Systems General: Reports: No Symptoms HEENT: Reports: No Symptoms Pulmonary: Reports: No Symptoms Cardiovascular: Reports: No Symptoms Gastrointestinal: Reports: No Symptoms Genitourinary: Reports: No Symptoms Musculoskeletal: Reports: No Symptoms Skin: Reports: No Symptoms Neurological: Reports: No Symptoms Psychiatric: Reports: No Symptoms - Patient Data Vitals - Most Recent: Last Vital Signs Temp 98.2 F 04/21/20 04:17 Pulse 78 04/21/20 04:17 Resp 18 04/21/20 04:17 BP 112/56 L 04/21/20 04:17 Pulse Ox 97 04/21/20 04:17 Weight - Most Recent: 158 lb 6.4 oz I&O - Last 24 hours: Intake & Output 04/20/20 04/21/20 04/21/20 22:59 06:59 14:59 Intake Total 750 330 Balance 750 330 Lab Results - Last 24 hrs: Laboratory Results - last 24 hr 04/20/20 04/20/20 04/20/20 Range/Units 10:17 11:30 11:30 WBC 4.9 L (5.0-10.0) 10^3/uL RBC 2.01 L (4.2-5.4) 10^6/uL Hgb 4.6 L* D (12.0-16.0) g/dL Hct 17.0 L* (37.0-47.0) % MCV 84.6 D (80-100) fL MCH 22.9 L (27.0-34.0) pg MCHC 27.1 L (33.0-35.0) g/dL Plt Count 172 D (150-450) 10^3/uL Neut % (Auto) 83.0 H (42.2-75.2) % Lymph % (Auto) 7.7 L (20.5-50.1) % [place] % (Auto) 7.5 (2-8) % Eos % (Auto) 0.2 L (1.0-3.0) % Baso % (Auto) 1.6 H (0.0-1.0) % Sodium 140 (136-145) mmol/L Potassium 3.8 (3.5-5.1) mmol/L Chloride 104 (98-107) mmol/L Carbon Dioxide 27 (21-32) mmol/L Anion Gap 12.8 (7-13) mEq/L BUN 13 (7-18) mg/dL Creatinine 0.59 (0.55-1.02) mg/dL Est Cr Clr Drug Dosing 57.67 mL/min Estimated GFR (MDRD) > 60 BUN/Creatinine Ratio 22.0 (No establ ref range) Glucose 115 H (74-99) mg/dL Calcium 8.1 L (8.5-10.1) mg/dL Total Bilirubin 0.8 (0.2-1.0) mg/dL AST 9 L (15-37) U/L ALT 14 (14-59) U/L Alkaline Phosphatase 96 (46-116) U/L Total Protein 5.9 L (6.4-8.2) g/dL Albumin 3.1 L (3.4-5.0) g/dL Globulin 2.8 Albumin/Globulin Ratio 1.11 Urine Color (YELLOW) Urine Appearance (CLEAR) Urine pH (5.0-9.0) Ur Specific [place] (1.005-1.030) Urine Protein (NEGATIVE) Urine Glucose (UA) (NEGATIVE) Urine Ketones (NEGATIVE) Urine Occult Blood (NEGATIVE) Urine Nitrite (NEGATIVE) Urine Bilirubin (NEGATIVE) Urine Urobilinogen (0.2-1.0) mg/dL Ur Leukocyte Esterase (NEGATIVE) Urine RBC /HPF Urine WBC (0-5/HPF) /HPF Ur Epithelial Cells (NOT SEEN) /HPF Calcium Oxalate Crystal (NOT SEEN) /HPF Amorphous Sediment (NOT SEEN) /HPF Urine Bacteria (0-FEW/HPF) /HPF Urine Mucus (NOT SEEN) /LPF Influenza Type A RNA Negative (NEGATIVE) Influenza Type B RNA Negative (NEGATIVE) SARS-CoV-2 RNA (DONA) Negative (NEGATIVE) Blood Type Gel Antibody Screen Crossmatch 04/20/20 04/20/20 04/20/20 Range/Units 11:30 19:00 22:18 WBC (5.0-10.0) 10^3/uL RBC (4.2-5.4) 10^6/uL Hgb 7.7 L D (12.0-16.0) g/dL Hct (37.0-47.0) % MCV (80-100) fL MCH (27.0-34.0) pg MCHC (33.0-35.0) g/dL Plt Count (150-450) 10^3/uL Neut % (Auto) (42.2-75.2) % Lymph % (Auto) (20.5-50.1) % [place] % (Auto) (2-8) % Eos % (Auto) (1.0-3.0) % Baso % (Auto) (0.0-1.0) % Sodium (136-145) mmol/L Potassium (3.5-5.1) mmol/L Chloride (98-107) mmol/L Carbon Dioxide (21-32) mmol/L Anion Gap (7-13) mEq/L BUN (7-18) mg/dL Creatinine (0.55-1.02) mg/dL Est Cr Clr Drug Dosing mL/min Estimated GFR (MDRD) BUN/Creatinine Ratio (No establ ref range) Glucose (74-99) mg/dL Calcium (8.5-10.1) mg/dL Total Bilirubin (0.2-1.0) mg/dL AST (15-37) U/L ALT (14-59) U/L Alkaline Phosphatase (46-116) U/L Total Protein (6.4-8.2) g/dL Albumin (3.4-5.0) g/dL Globulin Albumin/Globulin Ratio Urine Color Yellow (YELLOW) Urine Appearance Clear (CLEAR) Urine pH 6.0 (5.0-9.0) Ur Specific [place] 1.025 (1.005-1.030) Urine Protein Negative (NEGATIVE) Urine Glucose (UA) Negative (NEGATIVE) Urine Ketones Negative (NEGATIVE) Urine Occult Blood Negative (NEGATIVE) Urine Nitrite Negative (NEGATIVE) Urine Bilirubin Negative (NEGATIVE) Urine Urobilinogen 4.0 H (0.2-1.0) mg/dL Ur Leukocyte Esterase Trace H (NEGATIVE) Urine RBC Not seen /HPF Urine WBC 5-10 H (0-5/HPF) /HPF Ur Epithelial Cells Few (NOT SEEN) /HPF Calcium Oxalate Crystal Rare (NOT SEEN) /HPF Amorphous Sediment Few (NOT SEEN) /HPF Urine Bacteria Many H (0-FEW/HPF) /HPF Urine Mucus Rare (NOT SEEN) /LPF Influenza Type A RNA (NEGATIVE) Influenza Type B RNA (NEGATIVE) SARS-CoV-2 RNA (DONA) (NEGATIVE) Blood Type A NEGATIVE Gel Antibody Screen Negative Crossmatch See Detail 04/21/20 Range/Units 07:06 WBC 4.8 L (5.0-10.0) 10^3/uL RBC 3.01 L (4.2-5.4) 10^6/uL Hgb 7.8 L (12.0-16.0) g/dL Hct 25.6 L (37.0-47.0) % MCV 85.0 (80-100) fL MCH 25.9 L (27.0-34.0) pg MCHC 30.5 L (33.0-35.0) g/dL Plt Count 143 L (150-450) 10^3/uL Neut % (Auto) (42.2-75.2) % Lymph % (Auto) (20.5-50.1) % [place] % (Auto) (2-8) % Eos % (Auto) (1.0-3.0) % Baso % (Auto) (0.0-1.0) % Sodium (136-145) mmol/L Potassium (3.5-5.1) mmol/L Chloride (98-107) mmol/L Carbon Dioxide (21-32) mmol/L Anion Gap (7-13) mEq/L BUN (7-18) mg/dL Creatinine (0.55-1.02) mg/dL Est Cr Clr Drug Dosing mL/min Estimated GFR (MDRD) BUN/Creatinine Ratio (No establ ref range) Glucose (74-99) mg/dL Calcium (8.5-10.1) mg/dL Total Bilirubin (0.2-1.0) mg/dL AST (15-37) U/L ALT (14-59) U/L Alkaline Phosphatase (46-116) U/L Total Protein (6.4-8.2) g/dL Albumin (3.4-5.0) g/dL Globulin Albumin/Globulin Ratio Urine Color (YELLOW) Urine Appearance (CLEAR) Urine pH (5.0-9.0) Ur Specific [place] (1.005-1.030) Urine Protein (NEGATIVE) Urine Glucose (UA) (NEGATIVE) Urine Ketones (NEGATIVE) Urine Occult Blood (NEGATIVE) Urine Nitrite (NEGATIVE) Urine Bilirubin (NEGATIVE) Urine Urobilinogen (0.2-1.0) mg/dL Ur Leukocyte Esterase (NEGATIVE) Urine RBC /HPF Urine WBC (0-5/HPF) /HPF Ur Epithelial Cells (NOT SEEN) /HPF Calcium Oxalate Crystal (NOT SEEN) /HPF Amorphous Sediment (NOT SEEN) /HPF Urine Bacteria (0-FEW/HPF) /HPF Urine Mucus (NOT SEEN) /LPF Influenza Type A RNA (NEGATIVE) Influenza Type B RNA (NEGATIVE) SARS-CoV-2 RNA (DONA) (NEGATIVE) Blood Type Gel Antibody Screen Crossmatch Med Orders - Current: Current Medications Acetaminophen (Tylenol) 650 mg PO Q4H PRN PRN Reason: Pain (Mild 1-3)/fever Discontinued Medications Cyanocobalamin (Vitamin B12) 1,000 mcg IM .MONTHLY [place] Furosemide (Lasix) 20 mg IVPUSH NOW ONE Stop: 04/20/20 11:42 Last Admin: 04/20/20 14:24 Dose: Not Given Documented by: Sodium Chloride (Normal Saline) 500 mls @ 999 mls/hr IV .BOLUS [place] Last Admin: 04/20/20 11:23 Dose: 999 mls/hr Documented by: Sodium Chloride (Saline Flush) 10 ml FLUSH ASDIRECTED PRN PRN Reason: Keep Vein Open Last Admin: 04/20/20 11:23 Dose: 10 ml Documented by: - Exam General: Reports: Alert HEENT: Reports: Pupils Equal, Pupils Reactive, EOMI, Mucous Membr. Moist/[place] Neck: Reports: Supple Lungs: Reports: Clear to Auscultation, Normal Respiratory Effort Cardiovascular: Reports: Regular Rate, Regular Rhythm GI/Abdominal Exam: Normal Bowel Sounds, Soft, Non-Tender, No Organomegaly, No Distention, No Abnormal Bruit, No Mass, Pelvis Stable Back Exam: Reports: Normal Inspection, Full Range of Motion Extremities: Normal Inspection, Normal Range of Motion, Non-Tender, No Pedal Edema, Normal Capillary Refill Skin: Reports: Warm, Dry, Intact Neurological: Reports: No New Focal Deficit Psy/Mental Status: Reports: Alert, Normal Affect, Normal Mood
[2020-04-21 08:31] VITALS: BP 138/65; PULSE 71
== END 2020-04-21 11:35 | disposition home or self-care (01) ==
LOC: DL.ED 09:37 → DL.MS 12:17
PROVIDERS: ADMIT Internal Medicine; ATTEND Internal Medicine
DX: D64.9 Anemia, unspecified (principal); G30.9 Alzheimer's disease, unspecified; F02.80 Dementia in other diseases classified elsewhere, unspecified severity, without behavioral disturbance, psychotic disturbance, mood disturbance, and anxiety; E53.8 Deficiency of other specified B group vitamins; F17.210 Nicotine dependence, cigarettes, uncomplicated; Z20.822 Contact with and (suspected) exposure to COVID-19; Z88.8 Allergy status to other drugs, medicaments and biological substances; Z91.013 Allergy to seafood; Z90.49 Acquired absence of other specified parts of digestive tract; Z98.890 Other specified postprocedural states
CPT/HCPCS: 0240U; 36415; 36430; 80048; 80053; 81001; 85018; 85025; 85027; 86850; 86900; 86901; 86920; 86922; 87086; 93005; 99217; 99219; 99284; 99285; G0378; J7040; P9016

== ENCOUNTER 2020-11-03 13:49 | Emergency (ER) | payer MEDICARE, OTHER ==
[2020-11-03 14:12] VITALS: BP 140/50; PULSE 69
--- NOTE | 2020-11-03 14:17 | EDM.PDOC ---
ED HPI GENERAL MEDICAL PROBLEM - General Stated Complaint: DEHYDRATED Time Seen by Provider: 11/03/20 14:05 Source of Information: Reports: Patient, Family (Daughter) History Limitations: Reports: Altered Mental Status (Hx of advanced alzheimers at baseline) - History of Present Illness INITIAL COMMENTS - FREE TEXT/NARRATIVE: Bonnie is an 85 y/o female with a history of advanced Alzheimer's who prese nts to the ED via personal vehicle with complaints of decreased appetite over the past several days. The patient's daughter reports she was treated for a UTI with Macrobid one week prior and has seemed "off" since that time. The daughter also states she was recently treated with Macrobid and it made her feel ill, so she is concerned her mother is experiencing the same symptoms. The patient's da ughter denies noting fever, shaking chills, cough, vomiting, or diarrhea. She does not feel the patient has had malodorous urine or a decrease in urinary output. - Related Data Allergies Allergy/AdvReac Type Severity Reaction Status Date / Time iodine Allergy Cannot Verified 11/03/20 14:12 Remember shellfish derived Allergy Cannot Verified 11/03/20 14:12 Remember Home Meds: Home Meds Cyanocobalamin (Vitamin B-12) [Cyanocobalamin Injection] 1,000 mcg IM .MONTHLY 10/14/16 [History] Ferrous Gluconate [Iron] 240 mg PO DAILY 07/03/20 [History] Past Medical History HEENT History: Reports: Other (See Below) Other HEENT History: dentures Cardiovascular History: Reports: Heart Murmur Respiratory History: Reports: None Gastrointestinal History: Reports: GI Bleed Genitourinary History: Reports: Urinary Incontinence, UTI, Recurrent 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 SORTER History: Reports: , Spontaneous Musculoskeletal History: Reports: Fibromyalgia Neurological History: Reports: Alzheimers Disease Psychiatric History: Reports: Anxiety, Dementia, Mood Swings Endocrine/Metabolic History: Reports: None Hematologic History: Reports: Anemia, B12 Deficiency, Blood Transfusion(s) Immunologic History: Reports: None Oncologic (Cancer) History: Reports: Breast Dermatologic History: Reports: None - Infectious Disease History Infectious Disease History: Reports: Chicken Pox - Past Surgical History Head Surgeries/Procedures: Reports: None HEENT Surgical History: Reports: Laser Surgery, Tonsillectomy Cardiovascular Surgical History: Reports: None Respiratory Surgical History: Reports: None GI Surgical History: Reports: Appendectomy, Cholecystectomy, Colonoscopy Female Surgical History: Reports: Mastectomy Other Female Surgeries/Procedures: Left breast removed Neurological Surgical History: Reports: None Musculoskeletal Surgical History: Reports: None Oncologic Surgical History: Reports: Biopsy of Breast, Mastectomy Other Oncologic Surgeries/Procedures: Left breast removal Social & Family History - Family History Family Medical History: No Pertinent Family History - Caffeine Use Caffeine Use: Reports: Soda, Tea ED ROS GENERAL - Review of Systems Review Of Systems: Comprehensive ROS is negative, except as noted in HPI. ED EXAM, RENAL/ - Physical Exam Exam: See Below Exam Limited By: Other (History of advanced Alzheimer's disease) General Appearance: Alert, WD/WN, Thin Eye Exam: Bilateral Eye: EOMI, Normal Inspection, PERRL (2mm) Ears: Normal External Exam, Hearing Grossly Normal, Normal TMs Nose: Normal Inspection, Normal Mucosa, No Blood Throat/Mouth: Normal Inspection, Normal Oropharynx, Normal Voice, No Airway Compromise Head: Atraumatic, Normocephalic Neck: Normal Inspection, Supple, Non-Tender, Full Range of Motion. No: Lympha denopathy (L), Lymphadenopathy (R) Respiratory/Chest: No Respiratory Distress, Lungs Clear, Normal Breath Sounds, No Accessory Muscle Use Cardiovascular: Normal Peripheral Pulses, Regular Rate, Rhythm, No Edema, No Gallop, No JVD, No Rub, Systolic Murmur (3/6, loudest over the aortic area; No radiation into the carotids) GI/Abdominal: Normal Bowel Sounds, Soft, Non-Tender, No Distention, No Abnormal Bruit, No Mass, Pelvis Stable. No: Guarding, Rigid, Rebound (Female) Exam: Deferred Rectal (Female) Exam: Deferred Back Exam: Normal Inspection, Full Range of Motion. No: CVA Tenderness (L), CVA Tenderness (R), Muscle Spasm, Paraspinal Tenderness, Vertebral Tenderness Extremities: Normal Inspection, Normal Range of Motion, Non-Tender, No Pedal Edema, Normal Capillary Refill Neurological: Alert, CN II-XII Intact, Normal Gait, Normal Reflexes, No Motor/Sensory Deficits, Confused, Memory Loss Remote Events, Memory Loss Recent Events Psychiatric: Normal Affect, Normal Mood Skin Exam: Warm, Dry, Intact, Normal Color, No Rash. No: Cyanosis, Ecchymosis, Erythema, Jaundice, Mottled, Pallor, Petechiae Lymphatic: No Adenopathy Course - Vital Signs Last Recorded V/S: Last Vital Signs Temp 98.0 F 11/03/20 14:07 Pulse 69 11/03/20 14:07 Resp 20 11/03/20 14:07 BP 140/50 L 11/03/20 14:07 Pulse Ox 99 11/03/20 14:07 - Orders/Labs/Meds Labs: Laboratory Tests 11/03/20 11/03/20 11/03/20 Range/Units 14:27 14:27 14:27 WBC 5.7 (5.0-10.0) 10^3/uL RBC 3.87 L (4.2-5.4) 10^6/uL Hgb 10.7 L D (12.0-16.0) g/dL Hct 35.2 L (37.0-47.0) % MCV 91.0 (80-100) fL MCH 27.6 (27.0-34.0) pg MCHC 30.4 L (33.0-35.0) g/dL Plt Count 244 D (150-450) 10^3/uL Neut % (Auto) 67.0 (42.2-75.2) % Lymph % (Auto) 18.2 L (20.5-50.1) % [place] % (Auto) 5.4 (2-8) % Eos % (Auto) 8.7 H (1.0-3.0) % Baso % (Auto) 0.7 (0.0-1.0) % Sodium 145 (136-145) mmol/L Potassium 3.7 (3.5-5.1) mmol/L Chloride 107 (98-107) mmol/L Carbon Dioxide 29 (21-32) mmol/L Anion Gap 12.7 (7-13) mEq/L BUN 8 (7-18) mg/dL Creatinine 0.85 (0.55-1.02) mg/dL Est Cr Clr Drug Dosing 43.54 mL/min Estimated GFR (MDRD) > 60 BUN/Creatinine Ratio 9.4 (No establ ref range) Glucose 154 H (70-99) mg/dL Lactic Acid 2.3 H* (0.4-2.0) mmol/L Calcium 8.3 L (8.5-10.1) mg/dL Magnesium 2.1 (1.8-2.4) mg/dL Total Bilirubin 0.5 (0.2-1.0) mg/dL AST 7 L (15-37) U/L ALT 16 (14-59) U/L Alkaline Phosphatase 100 (46-116) U/L Troponin I High Sens 17 (<=51) pg/mL C-Reactive Protein 0.6 (0.0-0.9) mg/dL Total Protein 6.7 (6.4-8.2) g/dL Albumin 3.3 L (3.4-5.0) g/dL Globulin 3.4 Albumin/Globulin Ratio 0.97 Urine Color (YELLOW) Urine Appearance (CLEAR) Urine pH (5.0-9.0) Ur Specific [place] (1.005-1.030) Urine Protein (NEGATIVE) Urine Glucose (UA) (NEGATIVE) Urine Ketones (NEGATIVE) Urine Occult Blood (NEGATIVE) Urine Nitrite (NEGATIVE) Urine Bilirubin (NEGATIVE) Urine Urobilinogen (0.2-1.0) mg/dL Ur Leukocyte Esterase (NEGATIVE) Urine RBC (0-5) /HPF Urine WBC (0-5/HPF) /HPF Ur Epithelial Cells (NOT SEEN) /HPF Amorphous Sediment (NOT SEEN) /HPF Urine Bacteria (0-FEW/HPF) /HPF Urine Mucus (NOT SEEN) /LPF 11/03/20 Range/Units 16:47 WBC (5.0-10.0) 10^3/uL RBC (4.2-5.4) 10^6/uL Hgb (12.0-16.0) g/dL Hct (37.0-47.0) % MCV (80-100) fL MCH (27.0-34.0) pg MCHC (33.0-35.0) g/dL Plt Count (150-450) 10^3/uL Neut % (Auto) (42.2-75.2) % Lymph % (Auto) (20.5-50.1) % Deuel % (Auto) (2-8) % Eos % (Auto) (1.0-3.0) % Baso % (Auto) (0.0-1.0) % Sodium (136-145) mmol/L Potassium (3.5-5.1) mmol/L Chloride (98-107) mmol/L Carbon Dioxide (21-32) mmol/L Anion Gap (7-13) mEq/L BUN (7-18) mg/dL Creatinine (0.55-1.02) mg/dL Est Cr Clr Drug Dosing mL/min Estimated GFR (MDRD) BUN/Creatinine Ratio (No establ ref range) Glucose (70-99) mg/dL Lactic Acid (0.4-2.0) mmol/L Calcium (8.5-10.1) mg/dL Magnesium (1.8-2.4) mg/dL Total Bilirubin (0.2-1.0) mg/dL AST (15-37) U/L ALT (14-59) U/L Alkaline Phosphatase (46-116) U/L Troponin I High Sens (<=51) pg/mL C-Reactive Protein (0.0-0.9) mg/dL Total Protein (6.4-8.2) g/dL Albumin (3.4-5.0) g/dL Globulin Albumin/Globulin Ratio Urine Color Yellow (YELLOW) Urine Appearance Turbid (CLEAR) Urine pH 6.0 (5.0-9.0) Ur Specific [place] >= 1.030 (1.005-1.030) Urine Protein 30 H (NEGATIVE) Urine Glucose (UA) Negative (NEGATIVE) Urine Ketones Negative (NEGATIVE) Urine Occult Blood Small H (NEGATIVE) Urine Nitrite Positive H (NEGATIVE) Urine Bilirubin Negative (NEGATIVE) Urine Urobilinogen 0.2 (0.2-1.0) mg/dL Ur Leukocyte Esterase Moderate H (NEGATIVE) Urine RBC 30-40 H (0-5) /HPF Urine WBC >100 H (0-5/HPF) /HPF Ur Epithelial Cells Moderate H (NOT SEEN) /HPF Amorphous Sediment Moderate H (NOT SEEN) /HPF Urine Bacteria Many H (0-FEW/HPF) /HPF Urine Mucus Moderate H (NOT SEEN) /LPF Meds: Medications Discontinued Medications Generic Name Dose Route Start Last Admin Trade Name Freq PRN Reason Stop Dose Admin Sodium Chloride 500 mls @ 500 mls/hr 11/03/20 15:21 11/03/20 15:28 Normal Saline IV 11/03/20 16:20 500 mls/hr .BOLUS ONE Administration - Re-Assessments/Exams Free Text/Narrative Re-Assessment/Exam: 11/03/20 LR 500cc bolus administered due to decreased appetite, per patient's daughter. Findings of examination and lab work reviewed with patient's daughter. Will treat UTI with Bactrim DS; patient's daughter has requested a suspension as she has a difficult time with pills. Discussed supportive cares for UTI as well as need for follow up with her PCP. Red flag signs and symptoms which would warrant reevaluation reviewed. Patient's daughter verbalized understanding and agreement with the plan of care. Departure - Departure Time of Disposition: 17:38 Disposition: Home, Self-Care 01 Condition: Fair Clinical Impression: History of dementia, Normocytic hypochromic anemia Urinary tract infection Qualifiers: Urinary tract infection type: site unspecified Hematuria presence: without hematuria Qualified Code(s): N39.0 - Urinary tract infection, site not specified - Discharge Information *PRESCRIPTION DRUG MONITORING PROGRAM REVIEWED*: Not Applicable *COPY OF PRESCRIPTION DRUG MONITORING REPORT IN PATIENT KEVIN: Not Applicable Instructions: Urinary Tract Infection, Adult, [id number], Dehydration, Elderly, [id number] Forms: ED Department Discharge Additional Instructions: Rx: Bactrim DS Suspension 1.) Bonnie should take all of her antibiotics until gone, even as symptoms improve. 2.) You may give her a probiotic gummy while she is on antibiotics to help with gut health. 3.) Offer her frequent sips of water to keep her hydrated. 4.) Encourage frequent, snack like meals as large meals may be overbearing for her. 5.) Follow up with primary care provider by early next week.
[2020-11-03 14:54] LABS: ANION GAP 12.7 mEq/L (7-13); CHLORIDE,CL 107 mmol/L (98-107); SODIUM,NA 145 mmol/L (136-145)
[2020-11-03] MEDS ORDERED: Sodium Chloride 0.9% 500 ML IV ONE (15:21)
== END 2020-11-03 17:58 | disposition home or self-care (01) ==
LOC: DL.ED 13:49
DX: N39.0 Urinary tract infection, site not specified (principal); D64.9 Anemia, unspecified; F03.90 Unspecified dementia, unspecified severity, without behavioral disturbance, psychotic disturbance, mood disturbance, and anxiety; Z91.013 Allergy to seafood; Z88.8 Allergy status to other drugs, medicaments and biological substances; Z79.899 Other long term (current) drug therapy
CPT/HCPCS: 36415; 80053; 81001; 83605; 83735; 84484; 85025; 86140; 87086; 87088; 87186; 99284; J7030

== ENCOUNTER 2020-11-14 12:21 | Inpatient (IN) | payer OTHER ==
[2020-11-14 13:53] LABS: ANION GAP 13.9 mEq/L (7-13); CHLORIDE,CL 107 mmol/L (98-107); SODIUM,NA 143 mmol/L (136-145)
[2020-11-14] MEDS ORDERED: Sodium Chloride 0.9% 1,000 ML IV ONE (14:21)
--- NOTE | 2020-11-14 15:17 | CT ---
PROCEDURE INFORMATION: Exam: CT Abdomen And Pelvis Without Contrast Exam date and time: 11/14/2020 2:36 PM Age: 85 years old Clinical indication: Abdominal pain; Additional info: Abdominal pain, R/O bowel obstruction TECHNIQUE: Imaging protocol: Computed tomography of the abdomen and pelvis without contrast. Radiation optimization: All CT scans at this facility use at least one of these dose optimization techniques: automated exposure control; mA and/or kV adjustment per patient size (includes targeted exams where dose is matched to clinical indication); or iterative reconstruction. COMPARISON: CR Abdomen 1V Flat 05/24/2017 10:43 PM FINDINGS: Liver: Normal. No mass. Gallbladder and bile ducts: Gallbladder is absent Pancreas: Normal. No ductal dilation. Spleen: Normal. No splenomegaly. Adrenal glands: Normal. No mass. Kidneys and ureters: Normal. No hydronephrosis. Stomach and bowel: Unremarkable. No obstruction. No mucosal thickening. Appendix: No evidence of appendicitis. Intraperitoneal space: Unremarkable. No free air. No significant fluid collection. Vasculature: There are moderate atheromatous changes in the aortoiliac vessels. Lymph nodes: Unremarkable. No enlarged lymph nodes. Urinary bladder: Unremarkable as visualized. Reproductive: Unremarkable as visualized. Bones/joints: Unremarkable. No acute fracture. Soft tissues: Unremarkable. IMPRESSION: No acute findings. No bowel obstruction
--- NOTE | 2020-11-14 15:47 | CR ---
PROCEDURE INFORMATION: Exam: XR Chest Exam date and time: 11/14/2020 3:35 PM Age: 85 years old Clinical indication: Other: Chest pain TECHNIQUE: Imaging protocol: XR of the chest. Views: 1 view. COMPARISON: CT Chest Abdomen Pelvis wo Cont 11/14/2020 2:36 PM FINDINGS: Lungs: Unremarkable. No consolidation. Pleural spaces: Unremarkable. No pleural effusion. No pneumothorax. Heart/Mediastinum: Unremarkable. No cardiomegaly. Bones/joints: Unremarkable. Left mastectomy changes are noted. IMPRESSION: No acute findings.
[2020-11-14] MEDS ORDERED: Octreotide 100 MCG/ML SDV IVPUSH ONE (16:01)
[2020-11-14] MEDS ORDERED: Octreotide 100 MCG in Sodium Chloride 0.9% 99 ML IV SCH (16:15)
[2020-11-14] MEDS ORDERED: Pantoprazole 40 MG Vial IVPUSH ONE (16:20)
--- NOTE | 2020-11-14 16:37 | EDM.PDOC ---
Scribed by Bonnie Caballero 11/14/20 0630 for Macarena Noyola NP ED HPI GENERAL MEDICAL PROBLEM - General Chief Complaint: Abdominal Pain Stated Complaint: THOWING UP, DEHYDRATED, CHEST AND STOMACH PAIN Time Seen by Provider: 11/14/20 12:52 Source of Information: Reports: Patient, RN, RN Notes Reviewed History Limitations: Reports: No Limitations - History of Present Illness INITIAL COMMENTS - FREE TEXT/NARRATIVE: Patient is an 85-year-old female who presents to ER with her daughter with complaint of vomiting black x1 today. Daughter states patient has had decreased appetite, decreased fluid intake and weakness. Past medical history includes anemia (iron deficiency), stomach "issues", frequent UTIs, constipation and dementia. She has shortness of breath with activity. She has been sleeper lately with decreased urine output. She has chest pain and vomiting. No diarrhea. Yesterday she took Miralax. Last bowel movement was today and solid. PAtient's daughter's daughter has COVID and she has been sick as well with diarrhea for 1 month. [facility] DNR/DNI. Onset: Gradual Duration: Constant Location: Reports: Generalized Severity: Moderate Improves with: Reports: None Worsens with: Reports: None Associated Symptoms: Reports: No Other Symptoms - Related Data Allergies Allergy/AdvReac Type Severity Reaction Status Date / Time iodine Allergy Cannot Verified 11/14/20 12:48 Remember shellfish derived Allergy Cannot Verified 11/14/20 12:48 Remember Home Meds: Home Meds Cyanocobalamin (Vitamin B-12) [Cyanocobalamin Injection] 1,000 mcg IM .MONTHLY 10/14/16 [History] Ferrous Gluconate [Iron] 240 mg PO DAILY 07/03/20 [History] Past Medical History HEENT History: Reports: Other (See Below) Other HEENT History: dentures Cardiovascular History: Reports: Heart Murmur Respiratory History: Reports: None Gastrointestinal History: Reports: GI Bleed Genitourinary History: Reports: Urinary Incontinence, UTI, Recurrent VP PUBLISHER DEVELOPMENT History: Reports: , Spontaneous Musculoskeletal History: Reports: Fibromyalgia Neurological History: Reports: Alzheimers Disease Psychiatric History: Reports: Anxiety, Dementia, Mood Swings Endocrine/Metabolic History: Reports: None Hematologic History: Reports: Anemia, B12 Deficiency, Blood Transfusion(s) Immunologic History: Reports: None Oncologic (Cancer) History: Reports: Breast Dermatologic History: Reports: None - Infectious Disease History Infectious Disease History: Reports: Chicken Pox - Past Surgical History Head Surgeries/Procedures: Reports: None HEENT Surgical History: Reports: Laser Surgery, Tonsillectomy Cardiovascular Surgical History: Reports: None Respiratory Surgical History: Reports: None GI Surgical History: Reports: Appendectomy, Cholecystectomy, Colonoscopy Female Surgical History: Reports: Mastectomy Other Female Surgeries/Procedures: Left breast removed Neurological Surgical History: Reports: None Musculoskeletal Surgical History: Reports: None Oncologic Surgical History: Reports: Biopsy of Breast, Mastectomy Other Oncologic Surgeries/Procedures: Left breast removal Social & Family History - Family History Family Medical History: No Pertinent Family History - Caffeine Use Caffeine Use: Reports: Tea ED ROS GENERAL - Review of Systems Review Of Systems: Comprehensive ROS is negative, except as noted in HPI. ED EXAM, GI/ABD - Physical Exam Exam: See Below Exam Limited By: No Limitations General Appearance: Alert, WD/WN, No Apparent Distress Eyes: Bilateral: Normal Appearance, EOMI Ears: Normal External Exam, Normal Canal, Hearing Grossly Normal, Normal TMs Nose: Normal Inspection, Normal Mucosa, No Blood Throat/Mouth: Normal Inspection, Normal Lips, Normal Teeth, Normal Gums, Normal Oropharynx, Normal Voice, No Airway Compromise Head: Atraumatic, Normocephalic Neck: Normal Inspection, Supple, Non-Tender, Full Range of Motion Respiratory/Chest: Rhonchi (diminished bilaterally) Cardiovascular: Other (murmur) GI/Abdominal Exam: Normal Bowel Sounds, Tender (Female) Exam: Deferred Rectal (Female) Exam: Deferred Back Exam: Normal Inspection Extremities: Other (weaknes) Neurological: Alert Psychiatric: Normal Affect, Normal Mood Skin Exam: Other ([pily) Lymphatic: No Adenopathy #1 Interpretation EKG Date: 11/14/20 Time: 12:58 Rhythm: Other (sinus rhythm) Rate (Beats/Min): 90 EKG Interpretation Comments: Abnormal R-wave progression, early transition. LVH with secondary repolarization abnormality. ST depression, consider ischemia, diffuse lds. Baseline wander in lead 9s) I, III, AVL. Course - Vital Signs Last Recorded V/S: Last Vital Signs Temp 96.7 F L 11/14/20 12:42 Pulse 87 11/14/20 12:42 Resp 18 11/14/20 12:42 BP 91/47 L 11/14/20 12:42 Pulse Ox 96 11/14/20 12:42 - Orders/Labs/Meds Orders: Active Orders 24 hr Category Date Time Status CULTURE URINE [RM] Stat Lab 11/14/20 14:14 Received Sodium Chloride 0.9% [Normal Saline] 1,000 ml Med 11/14/20 14:21 Active IV .BOLUS Isolation [COMM] Routine Oth 11/14/20 13:45 Active Medication Orders Sodium Chloride (Normal Saline) 1,000 mls @ 200 mls/hr IV .BOLUS ONE Stop: 11/14/20 19:20 Last Admin: 11/14/20 15:05 Dose: 200 mls/hr Documented by: BRENNA Labs: Laboratory Tests 11/14/20 11/14/20 11/14/20 Range/Units 13:24 13:24 13:24 WBC 10.1 H (5.0-10.0) 10^3/uL RBC 2.68 L (4.2-5.4) 10^6/uL Hgb 7.4 L D (12.0-16.0) g/dL Hct 24.4 L (37.0-47.0) % MCV 91.0 (80-100) fL MCH 27.6 (27.0-34.0) pg MCHC 30.3 L (33.0-35.0) g/dL Plt Count 162 D (150-450) 10^3/uL Neut % (Auto) Nanosystems Engineer Add Manual Diff Yes Neutrophils % (Manual) 85 H (42-75) % Lymphocytes % (Manual) 11 L (20-50) % Monocytes % (Manual) 4 (2-8) % PT 10.4 (9.0-12.0) SEC INR 1.0 (0.9-1.2) Sodium 143 (136-145) mmol/L Potassium 3.9 (3.5-5.1) mmol/L Chloride 107 (98-107) mmol/L Carbon Dioxide 26 (21-32) mmol/L Anion Gap 13.9 H (7-13) mEq/L BUN 34 H D (7-18) mg/dL Creatinine 0.74 (0.55-1.02) mg/dL Est Cr Clr Drug Dosing 54.05 mL/min Estimated GFR (MDRD) > 60 BUN/Creatinine Ratio 45.9 (No establ ref range) Glucose 147 H (70-99) mg/dL Calcium 8.1 L (8.5-10.1) mg/dL Total Bilirubin 0.5 (0.2-1.0) mg/dL AST 16 (15-37) U/L ALT 19 (14-59) U/L Alkaline Phosphatase 91 (46-116) U/L Troponin I High Sens 14 (<=51) pg/mL Total Protein 6.1 L (6.4-8.2) g/dL Albumin 3.3 L (3.4-5.0) g/dL Globulin 2.8 Albumin/Globulin Ratio 1.18 Urine Color (YELLOW) Urine Appearance (CLEAR) Urine pH (5.0-9.0) Ur Specific [place] (1.005-1.030) Urine Protein (NEGATIVE) Urine Glucose (UA) (NEGATIVE) Urine Ketones (NEGATIVE) Urine Occult Blood (NEGATIVE) Urine Nitrite (NEGATIVE) Urine Bilirubin (NEGATIVE) Urine Urobilinogen (0.2-1.0) mg/dL Ur Leukocyte Esterase (NEGATIVE) Urine RBC (0-5) /HPF Urine WBC (0-5/HPF) /HPF Ur Epithelial Cells (NOT SEEN) /HPF Urine Bacteria (0-FEW/HPF) /HPF Urine Yeast (NOT SEEN) /HPF SARS-CoV-2 RNA (DONA) (NEGATIVE) Blood Type Gel Antibody Screen 11/14/20 11/14/20 11/14/20 Range/Units 13:24 13:36 14:14 WBC (5.0-10.0) 10^3/uL RBC (4.2-5.4) 10^6/uL Hgb (12.0-16.0) g/dL Hct (37.0-47.0) % MCV (80-100) fL MCH (27.0-34.0) pg MCHC (33.0-35.0) g/dL Plt Count (150-450) 10^3/uL Neut % (Auto) Add Manual Diff Neutrophils % (Manual) (42-75) % Lymphocytes % (Manual) (20-50) % Monocytes % (Manual) (2-8) % PT (9.0-12.0) SEC INR (0.9-1.2) Sodium (136-145) mmol/L Potassium (3.5-5.1) mmol/L Chloride (98-107) mmol/L Carbon Dioxide (21-32) mmol/L Anion Gap (7-13) mEq/L BUN (7-18) mg/dL Creatinine (0.55-1.02) mg/dL Est Cr Clr Drug Dosing mL/min Estimated GFR (MDRD) BUN/Creatinine Ratio (No establ ref range) Glucose (70-99) mg/dL Calcium (8.5-10.1) mg/dL Total Bilirubin (0.2-1.0) mg/dL AST (15-37) U/L ALT (14-59) U/L Alkaline Phosphatase (46-116) U/L Troponin I High Sens (<=51) pg/mL Total Protein (6.4-8.2) g/dL Albumin (3.4-5.0) g/dL Globulin Albumin/Globulin Ratio Urine Color Yellow (YELLOW) Urine Appearance Clear (CLEAR) Urine pH 5.5 (5.0-9.0) Ur Specific [place] 1.025 (1.005-1.030) Urine Protein Negative (NEGATIVE) Urine Glucose (UA) Negative (NEGATIVE) Urine Ketones Negative (NEGATIVE) Urine Occult Blood Trace-intact H (NEGATIVE) Urine Nitrite Negative (NEGATIVE) Urine Bilirubin Negative (NEGATIVE) Urine Urobilinogen 0.2 (0.2-1.0) mg/dL Ur Leukocyte Esterase Small H (NEGATIVE) Urine RBC 0-5 (0-5) /HPF Urine WBC 10-20 H (0-5/HPF) /HPF Ur Epithelial Cells Few (NOT SEEN) /HPF Urine Bacteria Rare (0-FEW/HPF) /HPF Urine Yeast Few H (NOT SEEN) /HPF SARS-CoV-2 RNA (DONA) Negative (NEGATIVE) Blood Type A NEGATIVE Gel Antibody Screen Negative Meds: Medications Generic Name Dose Route Start Last Admin Trade Name Freq PRN Reason Stop Dose Admin Sodium Chloride 1,000 mls @ 200 mls/hr 11/14/20 14:21 11/14/20 15:05 Normal Saline IV 11/14/20 19:20 200 mls/hr .BOLUS ONE Administration Discontinued Medications Generic Name Dose Route Start Last Admin Trade Name Freq PRN Reason Stop Dose Admin Octreotide Acetate 100 mcg/ 100 mls @ 50 mls/hr 11/14/20 16:15 11/14/20 16:32 Sodium Chloride IV Not Given Q10H [place] Octreotide Acetate 50 mcg 11/14/20 16:01 11/14/20 16:14 Octreotide 100 Mcg/Ml Sdv IVPUSH 11/14/20 16:02 50 mcg ONETIME ONE Administration Pantoprazole Sodium 80 mg 11/14/20 16:20 11/14/20 16:32 Pantoprazole 40 Mg Vial IVPUSH 11/14/20 16:21 80 mg .BOLUS ONE Administration - Radiology Interpretation Free Text/Narrative:: Abdomen/Pelvis CT wo contrast: PROCEDURE INFORMATION: Exam: CT Abdomen And Pelvis Without Contrast Exam date and time: 11/14/2020 2:36 PM Age: 85 years old Clinical indication: Abdominal pain; Additional info: Abdominal pain, R/O bowel obstruction TECHNIQUE: Imaging protocol: Computed tomography of the abdomen and pelvis without contrast. Radiation optimization: All CT scans at this facility use at least one of these dose optimization techniques: automated exposure control; mA and/or kV adjustment per patient size (includes targeted exams where dose is matched to clinical indication); or iterative reconstruct ion. COMPARISON: CR Abdomen 1V Flat 05/24/2017 10:43 PM FINDINGS: Liver: Normal. No mass. Gallbladder and bile ducts: Gallbladder is absent Pancreas: Normal. No ductal dilation. Spleen: Normal. No splenomegaly. Adrenal glands: Normal. No mass. Kidneys and ureters: Normal. No hydronephrosis. Stomach and bowel: Unremarkable. No obstruction. No mucosal thickening. Appendix: No evidence of appendicitis. Intraperitoneal space: Unremarkable. No free air. No significant fluid collection. Vasculature: There are moderate atheromatous changes in the aortoiliac vessels. Lymph nodes: Unremarkable. No enlarged lymph nodes. Urinary bladder: Unremarkable as visualized. Reproductive: Unremarkable as visualized. Bones/joints: Unremarkable. No acute fracture. Soft tissues: Unremarkable. IMPRESSION: No acute findings. No bowel obstruction Thank you for allowing us to participate in the care of your patient. Dictated and Authenticated by: Mingo Fischer MD 11/14/2020 3:17 PM Central Time ([place] & [place]) See rad report - Re-Assessments/Exams Free Text/Narrative Re-Assessment/Exam: 11/14/20 16:34 Discussed patient case with Dr. Kimbrough who agreed to accept the patient for inpatient admission here. Discussed patient case with Nursing Electric Melt Operator, Estefany at [facility] who states she will make a note for Domonique to call and visit with Dina Menjivar on Monday about patient payment. Departure - Departure Time of Disposition: 16:35 Disposition: Admitted As Inpatient 66 Condition: Fair Clinical Impression: GI bleed Qualifiers: GI bleed type/associated pathology: unspecified gastrointestinal hemorrhage type Qualified Code(s): K92.2 - Gastrointestinal hemorrhage, unspecified Dementia Qualifiers: Dementia type: unspecified type Dementia behavioral disturbance: without beh avioral disturbance Qualified Code(s): F03.90 - Unspecified dementia without behavioral disturbance Anemia Qualifiers: Anemia type: unspecified type Qualified Code(s): D64.9 - Anemia, unspecified - Discharge Information *PRESCRIPTION DRUG MONITORING PROGRAM REVIEWED*: No *COPY OF PRESCRIPTION DRUG MONITORING REPORT IN PATIENT KEVIN: No Forms: ED Department Discharge Sepsis Event Note (ED) - Evaluation Sepsis Screening Result: No Definite Risk - Focused Exam Vital Signs: Vital Signs Temp Pulse Resp BP Pulse Ox 11/14/20 12:42 96.7 F L 87 18 91/47 L 96 - My Orders Last 24 Hours: My Active Orders 11/14/20 13:45 Isolation [COMM] Routine 11/14/20 14:14 CULTURE URINE [RM] Stat 11/14/20 14:21 Sodium Chloride 0.9% [Normal Saline] 1,000 ml IV .BOLUS - Assessment/Plan Last 24 Hours: My Active Orders 11/14/20 13:45 Isolation [COMM] Routine 11/14/20 14:14 CULTURE URINE [RM] Stat 11/14/20 14:21 Sodium Chloride 0.9% [Normal Saline] 1,000 ml IV .BOLUS I have read and agree with the documentation that has been completed regarding this visit. By signing this record, I attest that the documentation was completed in my physical presence and is an accurate record of the encounter.
[2020-11-14] MEDS ORDERED: Pneumococcal Polyvalent-23 Vaccine 0.5 ML SDV IM ONE (17:33)
[2020-11-14] MEDS ORDERED: Acetaminophen 325 MG Tab PO PRN (17:45)
[2020-11-14] MEDS ORDERED: Ondansetron 4 MG Tab.DIS PO PRN (17:45)
[2020-11-14] MEDS ORDERED: Temazepam 15 MG Cap PO PRN (17:45)
[2020-11-14] MEDS ORDERED: Sodium Chloride 0.9% 10 ML Syringe FLUSH PRN (17:45)
--- NOTE | 2020-11-14 17:58 | PCM.HP ---
H&P History of Present Illness - General Date of Service: 11/14/20 Admit Problem/Dx: Admission Diagnosis/Problem Admission Diagnosis/Problem GI bleed not requiring more than 4 units of blood in 24 hours, ICU, or surgery Source of Information: Family History Limitations: Reports: Other (dementia) - History of Present Illness Initial Comments - Free Text/Narative: 85-year-old lady with a history of dementia, breast cancer status post mastectom y, chronic anemia. Family decided that they would not want further workup of the anemia. They do not want endoscopies nor bone marrow biopsy. As such the patient has been requiring transfusions every 4-6 months. She is taking B12 and iron. No other medications. She has advanced dementia. Not taking medications well, sometimes pocketing medications and spitting them out later. She does better with liquid formulations. She is only taking liquid iron every second day and periodic B12 administratio ns. In the past week the patient was noted to have increasing generalized weakness, decreased appetite, frequent burping. She was diagnosed with urinary tract infection and was taking liquid Bactrim. She has regular bowel movements which are dark but not bloody. On the day of admission the patient the was not feeling well. Due to the patient's dementia the history is limited. She has not been eating well, she did have liquid iron in her tea earlier. Eventually the patient had an episode of vomiting with pieces of black material in it. The patient was brought into the emergency room. Noted to have significant anemia with hemoglobin of 7.4. She had a "blood positive stool In the emergency room the patient was given octreotide bolus, Protonix IV. - Related Data Allergies/Adverse Reactions: Allergies Allergy/AdvReac Type Severity Reaction Status Date / Time iodine Allergy Cannot Verified 11/14/20 12:48 Remember shellfish derived Allergy Cannot Verified 11/14/20 12:48 Remember Home Medications: Home Meds Cyanocobalamin (Vitamin B-12) [Cyanocobalamin Injection] 1,000 mcg IM .MONTHLY 10/14/16 [History] Ferrous Gluconate [Iron] 240 mg PO DAILY 07/03/20 [History] Past Medical History HEENT History: Reports: Other (See Below) Other HEENT History: dentures Cardiovascular History: Reports: Heart Murmur Respiratory History: Reports: None Gastrointestinal History: Reports: GI Bleed Genitourinary History: Reports: Urinary Incontinence, UTI, 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: Reports: , Spontaneous Musculoskeletal History: Reports: Fibromyalgia Neurological History: Reports: Alzheimers Disease Psychiatric History: Reports: Anxiety, Dementia, Mood Swings Endocrine/Metabolic History: Reports: None Hematologic History: Reports: Anemia, B12 Deficiency, Blood Transfusion(s) Immunologic History: Reports: None Oncologic (Cancer) History: Reports: Breast Dermatologic History: Reports: None - Infectious Disease History Infectious Disease History: Reports: Chicken Pox, Measles, Mumps - Past Surgical History Head Surgeries/Procedures: Reports: None HEENT Surgical History: Reports: Laser Surgery, Tonsillectomy Cardiovascular Surgical History: Reports: None Respiratory Surgical History: Reports: None GI Surgical History: Reports: Appendectomy, Cholecystectomy, Colonoscopy Female Surgical History: Reports: Mastectomy Other Female Surgeries/Procedures: Left breast removed Neurological Surgical History: Reports: None Musculoskeletal Surgical History: Reports: None Oncologic Surgical History: Reports: Biopsy of Breast, Mastectomy Other Oncologic Surgeries/Procedures: Left breast removal Social & Family History - Family History Family Medical History: No Pertinent Family History - Tobacco Use Tobacco Use Status *Q: Current Status Unknown - Caffeine Use Caffeine Use: Reports: Tea - Recreational Drug Use Recreational Drug Use: No H&P Review of Systems - Review of Systems: Review Of Systems: See Below General: Denies: Fever Pulmonary: Denies: Shortness of Breath Cardiovascular: Denies: Chest Pain Gastrointestinal: Reports: Anorexia, Vomiting. Denies: Abdominal Pain, Constipation, Diarrhea Musculoskeletal: Reports: Back Pain Skin: Reports: No Symptoms Psychiatric: Reports: Confusion (baseline), Other (dementia) Neurological: Reports: Confusion Hematologic/Lymphatic: Reports: Anemia Exam - Exam Exam: See Below - Vital Signs Vital Signs: Last Vital Signs Temp 97.9 F 11/14/20 17:03 Pulse 99 11/14/20 17:03 Resp 18 11/14/20 17:03 BP 94/66 11/14/20 17:03 Pulse Ox 100 11/14/20 17:03 Weight: 173 lb 4.8 oz - Exam General: Alert. No: Oriented Neck: Supple Lungs: Clear to Auscultation, Normal Respiratory Effort Cardiovascular: Regular Rate, Regular Rhythm GI/Abdominal Exam: Normal Bowel Sounds, Soft, Non-Tender, No Distention, No Mass Extremities: No Pedal Edema Neuro Extensive - Mental Status: Alert, Oriented x3 - Patient Data Lab Results Last 24 hrs: Laboratory Results - last 24 hr 11/14/20 11/14/20 11/14/20 Range/Units 13:24 13:24 13:24 WBC 10.1 H (5.0-10.0) 10^3/uL RBC 2.68 L (4.2-5.4) 10^6/uL Hgb 7.4 L D (12.0-16.0) g/dL Hct 24.4 L (37.0-47.0) % MCV 91.0 (80-100) fL MCH 27.6 (27.0-34.0) pg MCHC 30.3 L (33.0-35.0) g/dL Plt Count 162 D (150-450) 10^3/uL Neut % (Auto) Drop Board Man Add Manual Diff Yes Neutrophils % (Manual) 85 H (42-75) % Lymphocytes % (Manual) 11 L (20-50) % Monocytes % (Manual) 4 (2-8) % PT 10.4 (9.0-12.0) SEC INR 1.0 (0.9-1.2) Sodium 143 (136-145) mmol/L Potassium 3.9 (3.5-5.1) mmol/L Chloride 107 (98-107) mmol/L Carbon Dioxide 26 (21-32) mmol/L Anion Gap 13.9 H (7-13) mEq/L BUN 34 H D (7-18) mg/dL Creatinine 0.74 (0.55-1.02) mg/dL Est Cr Clr Drug Dosing 54.05 mL/min Estimated GFR (MDRD) > 60 BUN/Creatinine Ratio 45.9 (No establ ref range) Glucose 147 H (70-99) mg/dL Calcium 8.1 L (8.5-10.1) mg/dL Total Bilirubin 0.5 (0.2-1.0) mg/dL AST 16 (15-37) U/L ALT 19 (14-59) U/L Alkaline Phosphatase 91 (46-116) U/L Troponin I High Sens 14 (<=51) pg/mL Total Protein 6.1 L (6.4-8.2) g/dL Albumin 3.3 L (3.4-5.0) g/dL Globulin 2.8 Albumin/Globulin Ratio 1.18 Urine Color (YELLOW) Urine Appearance (CLEAR) Urine pH (5.0-9.0) Ur Specific [place] (1.005-1.030) Urine Protein (NEGATIVE) Urine Glucose (UA) (NEGATIVE) Urine Ketones (NEGATIVE) Urine Occult Blood (NEGATIVE) Urine Nitrite (NEGATIVE) Urine Bilirubin (NEGATIVE) Urine Urobilinogen (0.2-1.0) mg/dL Ur Leukocyte Esterase (NEGATIVE) Urine RBC (0-5) /HPF Urine WBC (0-5/HPF) /HPF Ur Epithelial Cells (NOT SEEN) /HPF Urine Bacteria (0-FEW/HPF) /HPF Urine Yeast (NOT SEEN) /HPF SARS-CoV-2 RNA (DONA) (NEGATIVE) Blood Type Gel Antibody Screen 11/14/20 11/14/20 11/14/20 Range/Units 13:24 13:36 14:14 WBC (5.0-10.0) 10^3/uL RBC (4.2-5.4) 10^6/uL Hgb (12.0-16.0) g/dL Hct (37.0-47.0) % MCV (80-100) fL MCH (27.0-34.0) pg MCHC (33.0-35.0) g/dL Plt Count (150-450) 10^3/uL Neut % (Auto) Add Manual Diff Neutrophils % (Manual) (42-75) % Lymphocytes % (Manual) (20-50) % Monocytes % (Manual) (2-8) % PT (9.0-12.0) SEC INR (0.9-1.2) Sodium (136-145) mmol/L Potassium (3.5-5.1) mmol/L Chloride (98-107) mmol/L Carbon Dioxide (21-32) mmol/L Anion Gap (7-13) mEq/L BUN (7-18) mg/dL Creatinine (0.55-1.02) mg/dL Est Cr Clr Drug Dosing mL/min Estimated GFR (MDRD) BUN/Creatinine Ratio (No establ ref range) Glucose (70-99) mg/dL Calcium (8.5-10.1) mg/dL Total Bilirubin (0.2-1.0) mg/dL AST (15-37) U/L ALT (14-59) U/L Alkaline Phosphatase (46-116) U/L Troponin I High Sens (<=51) pg/mL Total Protein (6.4-8.2) g/dL Albumin (3.4-5.0) g/dL Globulin Albumin/Globulin Ratio Urine Color Yellow (YELLOW) Urine Appearance Clear (CLEAR) Urine pH 5.5 (5.0-9.0) Ur Specific Redfield 1.025 (1.005-1.030) Urine Protein Negative (NEGATIVE) Urine Glucose (UA) Negative (NEGATIVE) Urine Ketones Negative (NEGATIVE) Urine Occult Blood Trace-intact H (NEGATIVE) Urine Nitrite Negative (NEGATIVE) Urine Bilirubin Negative (NEGATIVE) Urine Urobilinogen 0.2 (0.2-1.0) mg/dL Ur Leukocyte Esterase Small H (NEGATIVE) Urine RBC 0-5 (0-5) /HPF Urine WBC 10-20 H (0-5/HPF) /HPF Ur Epithelial Cells Few (NOT SEEN) /HPF Urine Bacteria Rare (0-FEW/HPF) /HPF Urine Yeast Few H (NOT SEEN) /HPF SARS-CoV-2 RNA (DONA) Negative (NEGATIVE) Blood Type A NEGATIVE Gel Antibody Screen Negative Result Diagrams: 11/14/20 13:24 11/14/20 13:24 Jamel Results Last 24 hrs: Microbiology 11/14/20 15:40 Stool Occult Blood (JAMEL) - Final Stool / Feces 11/14/20 13:36 Influenza Type A Antigen Screen - Final Nasal, Unspecified NEGATIVE INFLUENZA A VIRUS AG REFERENCE RANGE: NEGATIVE Influenza Type B Antigen Screen - Final NEGATIVE INFLUENZA B VIRUS AG REFERENCE RANGE: NEGATIVE - Problem List (1) Anemia SNOMED Code(s): 582009819 ICD Code: D64.9 - ANEMIA, UNSPECIFIED Status: Acute Current Visit: No Qualifiers: Anemia type: unspecified type Qualified Code(s): D64.9 - Anemia, unspecified (2) Dementia SNOMED Code(s): 21323624 ICD Code: F03.90 - UNSPECIFIED DEMENTIA WITHOUT BEHAVIORAL DISTURBANCE Status: Acute Current Visit: No Qualifiers: Dementia type: unspecified type Dementia behavioral disturbance: without behavioral disturbance Qualified Code(s): F03.90 - Unspecified dementia without behavioral disturbance (3) GI bleed SNOMED Code(s): 17926838 ICD Code: K92.2 - GASTROINTESTINAL HEMORRHAGE, UNSPECIFIED Status: Acute Current Visit: No Qualifiers: GI bleed type/associated pathology: unspecified gastrointestinal hemorrhage type Qualified Code(s): K92.2 - Gastrointestinal hemorrhage, unspecified (4) UTI (urinary tract infection) SNOMED Code(s): 09695935 ICD Code: N39.0 - URINARY TRACT INFECTION, SITE NOT SPECIFIED Status: Acute Current Visit: No Qualifiers: Urinary tract infection type: site unspecified Hematuria presence: without hematuria Qualified Code(s): N39.0 - Urinary tract infection, site not specified (5) Alzheimers disease SNOMED Code(s): 61333532 ICD Code: G30.9 - ALZHEIMER'S DISEASE, UNSPECIFIED; F02.80 - DEMENTIA IN OTH DISEASES CLASSD ELSWHR W/O BEHAVRL DISTURB Status: Chronic Current Visit: No Problem List Initiated/Reviewed/Updated: Yes Orders Last 24hrs: Active Orders 24 hr Category Date Time Status Admission Diagnosis [ADT] Stat ADT 11/14/20 16:39 Ordered Admission Status [Patient Status] [ADT] Routine ADT 11/14/20 16:39 Active Antiembolic Devices [RC] Care 11/14/20 17:47 Active Oxygen Therapy [RC] PRN Care 11/14/20 17:45 Active Peripheral IV Care [RC] Care 11/14/20 17:47 Active Up With Assistance [RC] ASDIRECTED Care 11/14/20 17:45 Active VTE/DVT Education [RC] PER UNIT ROUTINE Care 11/14/20 17:45 Active Vital Signs [RC] Q4H Care 11/14/20 17:45 Active Regular Diet [DIET] Diet 11/14/20 Breakfast Active BASIC METABOLIC PANEL,BMP [CHEM] AM Lab 11/15/20 05:11 Ordered CBC W/O DIFF,HEMOGRAM [HEME] AM Lab 11/15/20 05:11 Ordered CULTURE URINE [RM] Stat Lab 11/14/20 14:14 Received TYPE AND SCREEN [BBK] Routine Lab 11/14/20 17:49 Ordered Acetaminophen [TylenoL] Med 11/14/20 17:45 Active 650 mg PO Q4H PRN Iron Polysaccharides Complex [Ferrex 150] Med 11/15/20 09:00 Active 150 mg PO DAILY Ondansetron [Zofran ODT] Med 11/14/20 17:45 Active 4 mg PO Q6H PRN Pantoprazole [ProTONIX IV] Med 11/15/20 08:00 Active 40 mg IVPUSH Q12H Sodium Chloride 0.9% [Normal Saline] 1,000 ml Med 11/14/20 14:21 Active IV .BOLUS Sodium Chloride 0.9% [Saline Flush] Med 11/14/20 17:45 Active 10 ml FLUSH ASDIRECTED PRN Temazepam [Restoril] Med 11/14/20 17:45 Active 15 mg PO BEDTIME PRN Isolation [COMM] Routine Ot 11/14/20 13:45 Active Peripheral IV Insertion Adult [OM.PC] Routine Ot 11/14/20 17:45 Ordered Saline Lock Insert [OM.PC] Routine Ot 11/14/20 17:45 Ordered Sequential Compression Device [OM.PC] Per Unit Routine Ot 11/14/20 17:46 Ordered Transfuse RBC [Transfuse Red Blood Cells] [COMM] Ot 11/14/20 17:49 Ordered Routine Resuscitation Status Routine Resus Stat 11/14/20 17:45 Ordered Medication Orders Acetaminophen (Acetaminophen 325 Mg Tab) 650 mg PO Q4H PRN PRN Reason: Pain (Mild 1-3)/fever Sodium Chloride (Normal Saline) 1,000 mls @ 200 mls/hr IV .BOLUS ONE Stop: 11/14/20 19:20 Last Admin: 11/14/20 15:05 Dose: 200 mls/hr Documented by: BRENNA Ondansetron HCl (Ondansetron 4 Mg Tab.Dis) 4 mg PO Q6H PRN PRN Reason: nausea, able to take PO Pantoprazole Sodium (Pantoprazole 40 Mg Vial) 40 mg IVPUSH Q12H [place] Polysaccharide Iron Complex (Iron Polysaccharides Complex 150 Mg Cap) 150 mg PO DAILY [place] Sodium Chloride (Sodium Chloride 0.9% 10 Ml Syringe) 10 ml FLUSH ASDIRECTED PRN PRN Reason: Keep Vein Open Temazepam (Temazepam 15 Mg Cap) 15 mg PO BEDTIME PRN PRN Reason: Sleep Assessment/Plan Comment:: Anemia Most likely acute blood loss anemia. Family has decided not to pursue further workup due to patient's dementia and age. We discussed blood transfusions and the patient's daughter has consented. We will also continue liquid iron Likely GI bleed, possibly upper GI bleed Will treat empirically with Protonix. Dementia High risk for hospital related delirium Recent urinary tract infection Status post Bactrim treatment Urine culture pending, I will not continue further empiric treatment DVT prophylaxis with SCDs CODE STATUS was discussed with the patient's daughter. We'll be DNR, DNI
[2020-11-14] MEDS ORDERED: Ondansetron 4 MG/2 ML SDV IVPUSH PRN (19:36)
[2020-11-15 06:45] LABS: ANION GAP 9.7 mEq/L (7-13); CHLORIDE,CL 112 mmol/L (98-107); SODIUM,NA 146 mmol/L (136-145)
[2020-11-15] MEDS ORDERED: Pantoprazole 40 MG Vial IVPUSH SCH (08:00)
[2020-11-15] MEDS ORDERED: Iron Polysaccharides Complex 150 MG Cap PO SCH (09:00)
--- NOTE | 2020-11-15 11:51 | PCM.DCSUM1 ---
Discharge Summary - Hospital Course Free Text/Narrative:: presented with weakness has h/o anemia requiring periodical blood transfusion pt/family opted for no further w/up due to significant dementia Anemia Most likely sub-acute blood loss anemia. Family has decided not to pursue further workup due to patient's dementia and age. We discussed blood transfusions and the patient's daughter has consented. received 2 u prbc tx hgb improved 7.4 to 8.6 symptoms of weakness improved We will also continue liquid iron Likely GI bleed, possibly upper GI bleed Will treat empirically with Protonix. Dementia at baseline Recent urinary tract infection Status post Bactrim treatment Urine culture pending, I will not continue further empiric treatment Diagnosis: Stroke: No - Discharge Data Discharge Date: 11/15/20 Discharge Disposition: Home, Self-Care 01 Condition: Good - Referral to Home Health Primary Care Physician: PCP None - Discharge Diagnosis/Problem(s) (1) Anemia SNOMED Code(s): 225247736 ICD Code: D64.9 - ANEMIA, UNSPECIFIED Status: Acute Current Visit: No Qualifiers: Anemia type: unspecified type Qualified Code(s): D64.9 - Anemia, unspecified (2) Dementia SNOMED Code(s): 48599530 ICD Code: F03.90 - UNSPECIFIED DEMENTIA WITHOUT BEHAVIORAL DISTURBANCE Status: Acute Current Visit: No Qualifiers: Dementia type: unspecified type Dementia behavioral disturbance: without behavioral disturbance Qualified Code(s): F03.90 - Unspecified dementia without behavioral disturbance (3) GI bleed SNOMED Code(s): 68558684 ICD Code: K92.2 - GASTROINTESTINAL HEMORRHAGE, UNSPECIFIED Status: Acute Current Visit: No Qualifiers: GI bleed type/associated pathology: unspecified gastrointestinal hemorrhage type Qualified Code(s): K92.2 - Gastrointestinal hemorrhage, unspecified (4) UTI (urinary tract infection) SNOMED Code(s): 13564583 ICD Code: N39.0 - URINARY TRACT INFECTION, SITE NOT SPECIFIED Status: Acute Current Visit: No Qualifiers: Urinary tract infection type: site unspecified Hematuria presence: without hematuria Qualified Code(s): N39.0 - Urinary tract infection, site not specified (5) Alzheimers disease SNOMED Code(s): 37789151 ICD Code: G30.9 - ALZHEIMER'S DISEASE, UNSPECIFIED; F02.80 - DEMENTIA IN OTH DISEASES CLASSD ELSWHR W/O BEHAVRL DISTURB Status: Chronic Current Visit: No - Patient Instructions Diet: Regular Diet as Tolerated Activity: As Tolerated - Discharge Plan *PRESCRIPTION DRUG MONITORING PROGRAM REVIEWED*: No *COPY OF PRESCRIPTION DRUG MONITORING REPORT IN PATIENT KEVIN: No Prescriptions/Med Rec: Pantoprazole Sodium [Protonix] 40 mg PO DAILY #30 [email or web address] Home Medications: Home Meds Cyanocobalamin (Vitamin B-12) [Cyanocobalamin Injection] 1,000 mcg IM .MONTHLY 10/14/16 [History] Ferrous Gluconate [Iron] 240 mg PO DAILY 07/03/20 [History] Pantoprazole Sodium [Protonix] 40 mg PO DAILY #30 [email or web address].pkt 11/15/20 [Rx] Patient Handouts: Blood Transfusion, Adult, [id number], Gastrointestinal Bleeding, [id number], Pantoprazole oral suspension, Blood Transfusion, Adult, Care After, [id number] - Discharge Summary/Plan Comment DC Time >30 min.: No Total # of Minutes for Discharge Time: 25 min, d/w daughter at bedside - General Info Date of Service: 11/15/20 Subjective Update: back to baseline per daughter Functional Status: Reports: Tolerating Diet - Review of Systems General: Denies: Fever Pulmonary: Denies: Shortness of Breath Cardiovascular: Denies: Chest Pain, Edema Gastrointestinal: Denies: Abdominal Pain, Nausea, Vomiting Genitourinary: Denies: Dysuria Neurological: Reports: Confusion - Patient Data Vitals - Most Recent: Last Vital Signs Temp 96.7 F L 11/15/20 08:00 Pulse 67 11/15/20 08:00 Resp 20 11/15/20 08:00 BP 96/57 L 11/15/20 08:00 Pulse Ox 95 11/15/20 08:00 Weight - Most Recent: 173 lb 4.8 oz I&O - Last 24 hours: Intake & Output 11/14/20 11/15/20 11/15/20 22:59 06:59 14:59 Intake Total 1000 740 Balance 1000 740 Lab Results - Last 24 hrs: Laboratory Results - last 24 hr 11/14/20 11/14/20 11/14/20 Range/Units 13:24 13:24 13:24 WBC 10.1 H (5.0-10.0) 10^3/uL RBC 2.68 L (4.2-5.4) 10^6/uL Hgb 7.4 L D (12.0-16.0) g/dL Hct 24.4 L (37.0-47.0) % MCV 91.0 (80-100) fL MCH 27.6 (27.0-34.0) pg MCHC 30.3 L (33.0-35.0) g/dL Plt Count 162 D (150-450) 10^3/uL Neut % (Auto) Inspector Floor Sub Assembly Add Manual Diff Yes Neutrophils % (Manual) 85 H (42-75) % Lymphocytes % (Manual) 11 L (20-50) % Monocytes % (Manual) 4 (2-8) % PT 10.4 (9.0-12.0) SEC INR 1.0 (0.9-1.2) Sodium 143 (136-145) mmol/L Potassium 3.9 (3.5-5.1) mmol/L Chloride 107 (98-107) mmol/L Carbon Dioxide 26 (21-32) mmol/L Anion Gap 13.9 H (7-13) mEq/L BUN 34 H D (7-18) mg/dL Creatinine 0.74 (0.55-1.02) mg/dL Est Cr Clr Drug Dosing 54.05 mL/min Estimated GFR (MDRD) > 60 BUN/Creatinine Ratio 45.9 (No establ ref range) Glucose 147 H (70-99) mg/dL Calcium 8.1 L (8.5-10.1) mg/dL Total Bilirubin 0.5 (0.2-1.0) mg/dL AST 16 (15-37) U/L ALT 19 (14-59) U/L Alkaline Phosphatase 91 (46-116) U/L Troponin I High Sens 14 (<=51) pg/mL Total Protein 6.1 L (6.4-8.2) g/dL Albumin 3.3 L (3.4-5.0) g/dL Globulin 2.8 Albumin/Globulin Ratio 1.18 Urine Color (YELLOW) Urine Appearance (CLEAR) Urine pH (5.0-9.0) Ur Specific [place] (1.005-1.030) Urine Protein (NEGATIVE) Urine Glucose (UA) (NEGATIVE) Urine Ketones (NEGATIVE) Urine Occult Blood (NEGATIVE) Urine Nitrite (NEGATIVE) Urine Bilirubin (NEGATIVE) Urine Urobilinogen (0.2-1.0) mg/dL Ur Leukocyte Esterase (NEGATIVE) Urine RBC (0-5) /HPF Urine WBC (0-5/HPF) /HPF Ur Epithelial Cells (NOT SEEN) /HPF Urine Bacteria (0-FEW/HPF) /HPF Urine Yeast (NOT SEEN) /HPF SARS-CoV-2 RNA (DONA) (NEGATIVE) Blood Type Gel Antibody Screen Crossmatch 11/14/20 11/14/20 11/14/20 Range/Units 13:24 13:36 14:14 WBC (5.0-10.0) 10^3/uL RBC (4.2-5.4) 10^6/uL Hgb (12.0-16.0) g/dL Hct (37.0-47.0) % MCV (80-100) fL MCH (27.0-34.0) pg MCHC (33.0-35.0) g/dL Plt Count (150-450) 10^3/uL Neut % (Auto) Add Manual Diff Neutrophils % (Manual) (42-75) % Lymphocytes % (Manual) (20-50) % Monocytes % (Manual) (2-8) % PT (9.0-12.0) SEC INR (0.9-1.2) Sodium (136-145) mmol/L Potassium (3.5-5.1) mmol/L Chloride (98-107) mmol/L Carbon Dioxide (21-32) mmol/L Anion Gap (7-13) mEq/L BUN (7-18) mg/dL Creatinine (0.55-1.02) mg/dL Est Cr Clr Drug Dosing mL/min Estimated GFR (MDRD) BUN/Creatinine Ratio (No establ ref range) Glucose (70-99) mg/dL Calcium (8.5-10.1) mg/dL Total Bilirubin (0.2-1.0) mg/dL AST (15-37) U/L ALT (14-59) U/L Alkaline Phosphatase (46-116) U/L Troponin I High Sens (<=51) pg/mL Total Protein (6.4-8.2) g/dL Albumin (3.4-5.0) g/dL Globulin Albumin/Globulin Ratio Urine Color Yellow (YELLOW) Urine Appearance Clear (CLEAR) Urine pH 5.5 (5.0-9.0) Ur Specific [place] 1.025 (1.005-1.030) Urine Protein Negative (NEGATIVE) Urine Glucose (UA) Negative (NEGATIVE) Urine Ketones Negative (NEGATIVE) Urine Occult Blood Trace-intact H (NEGATIVE) Urine Nitrite Negative (NEGATIVE) Urine Bilirubin Negative (NEGATIVE) Urine Urobilinogen 0.2 (0.2-1.0) mg/dL Ur Leukocyte Esterase Small H (NEGATIVE) Urine RBC 0-5 (0-5) /HPF Urine WBC 10-20 H (0-5/HPF) /HPF Ur Epithelial Cells Few (NOT SEEN) /HPF Urine Bacteria Rare (0-FEW/HPF) /HPF Urine Yeast Few H (NOT SEEN) /HPF SARS-CoV-2 RNA (DONA) Negative (NEGATIVE) Blood Type A NEGATIVE Gel Antibody Screen Negative Crossmatch See Detail 11/15/20 11/15/20 Range/Units 06:10 06:10 WBC 6.3 (5.0-10.0) 10^3/uL RBC 3.05 L (4.2-5.4) 10^6/uL Hgb 8.6 L (12.0-16.0) g/dL Hct 27.5 L (37.0-47.0) % MCV 90.2 (80-100) fL MCH 28.2 (27.0-34.0) pg MCHC 31.3 L (33.0-35.0) g/dL Plt Count 126 L (150-450) 10^3/uL Neut % (Auto) Add Manual Diff Neutrophils % (Manual) (42-75) % Lymphocytes % (Manual) (20-50) % Monocytes % (Manual) (2-8) % PT (9.0-12.0) SEC INR (0.9-1.2) Sodium 146 H (136-145) mmol/L Potassium 3.7 (3.5-5.1) mmol/L Chloride 112 H (98-107) mmol/L Carbon Dioxide 28 (21-32) mmol/L Anion Gap 9.7 (7-13) mEq/L BUN 22 H (7-18) mg/dL Creatinine 0.67 (0.55-1.02) mg/dL Est Cr Clr Drug Dosing 59.70 mL/min Estimated GFR (MDRD) > 60 BUN/Creatinine Ratio (No establ ref range) Glucose 109 H (70-99) mg/dL Calcium 7.7 L (8.5-10.1) mg/dL Total Bilirubin (0.2-1.0) mg/dL AST (15-37) U/L ALT (14-59) U/L Alkaline Phosphatase (46-116) U/L Troponin I High Sens (<=51) pg/mL Total Protein (6.4-8.2) g/dL Albumin (3.4-5.0) g/dL Globulin Albumin/Globulin Ratio Urine Color (YELLOW) Urine Appearance (CLEAR) Urine pH (5.0-9.0) Ur Specific [place] (1.005-1.030) Urine Protein (NEGATIVE) Urine Glucose (UA) (NEGATIVE) Urine Ketones (NEGATIVE) Urine Occult Blood (NEGATIVE) Urine Nitrite (NEGATIVE) Urine Bilirubin (NEGATIVE) Urine Urobilinogen (0.2-1.0) mg/dL Ur Leukocyte Esterase (NEGATIVE) Urine RBC (0-5) /HPF Urine WBC (0-5/HPF) /HPF Ur Epithelial Cells (NOT SEEN) /HPF Urine Bacteria (0-FEW/HPF) /HPF Urine Yeast (NOT SEEN) /HPF SARS-CoV-2 RNA (DONA) (NEGATIVE) Blood Type Gel Antibody Screen Crossmatch SHEILA Results - Last 24 hrs: Microbiology 11/14/20 14:14 Urine Culture - Preliminary Urine, Quick Cath (In-Out) NO GROWTH AFTER 1 DAY 11/14/20 15:40 Stool Occult Blood (SHEILA) - Final Stool / Feces 11/14/20 13:36 Influenza Type A Antigen Screen - Final Nasal, Unspecified NEGATIVE INFLUENZA A VIRUS AG REFERENCE RANGE: NEGATIVE Influenza Type B Antigen Screen - Final NEGATIVE INFLUENZA B VIRUS AG REFERENCE RANGE: NEGATIVE Med Orders - Current: Current Medications Acetaminophen (Acetaminophen 325 Mg Tab) 650 mg PO Q4H PRN PRN Reason: Pain (Mild 1-3)/fever Ondansetron HCl (Ondansetron 4 Mg Tab.Dis) 4 mg PO Q6H PRN PRN Reason: nausea, able to take PO Ondansetron HCl (Ondansetron 4 Mg/2 Ml Sdv) 4 mg IVPUSH Q6HR PRN PRN Reason: Nausea Last Admin: 11/14/20 19:53 Dose: 4 mg Documented by: Pantoprazole Sodium (Pantoprazole 40 Mg Vial) 40 mg IVPUSH Q12H [place] Polysaccharide Iron Complex (Iron Polysaccharides Complex 150 Mg Cap) 150 mg PO DAILY [place] Sodium Chloride (Sodium Chloride 0.9% 10 Ml Syringe) 10 ml FLUSH ASDIRECTED PRN PRN Reason: Keep Vein Open Temazepam (Temazepam 15 Mg Cap) 15 mg PO BEDTIME PRN PRN Reason: Sleep Discontinued Medications Sodium Chloride (Normal Saline) 1,000 mls @ 200 mls/hr IV .BOLUS ONE Stop: 11/14/20 19:20 Last Admin: 11/14/20 15:05 Dose: 200 mls/hr Documented by: Octreotide Acetate 100 mcg/ (Sodium Chloride) 100 mls @ 50 mls/hr IV Q10H [place] Last Admin: 11/14/20 16:32 Dose: Not Given Documented by: Octreotide Acetate (Octreotide 100 Mcg/Ml Sdv) 50 mcg IVPUSH ONETIME ONE Stop: 11/14/20 16:02 Last Admin: 11/14/20 16:14 Dose: 50 mcg Documented by: Pantoprazole Sodium (Pantoprazole 40 Mg Vial) 80 mg IVPUSH .BOLUS ONE Stop: 11/14/20 16:21 Last Admin: 11/14/20 16:32 Dose: 80 mg Documented by: Pneumococcal Polyvalent Vaccine (Pneumococcal Polyvalent-23 Vaccine 0.5 Ml Sdv) 0.5 ml IM .ONCE ONE Stop: 11/14/20 17:34 Last Admin: 11/14/20 17:56 Dose: Not Given Documented by: - Exam General: Reports: Alert. Denies: Oriented Neck: Reports: Supple Lungs: Reports: Clear to Auscultation, Normal Respiratory Effort Cardiovascular: Reports: Regular Rhythm, Murmurs (systolic) GI/Abdominal Exam: Normal Bowel Sounds, Soft, Non-Tender Extremities: No Pedal Edema
[2020-11-15 12:19] VITALS: BP 101/61; PULSE 68
[2020-11-15] MEDS ORDERED: Pneumococcal Polyvalent-23 Vaccine 0.5 ML SDV IM ONE (12:23)
== END 2020-11-15 14:15 | disposition home or self-care (01) | DRG 378 ==
LOC: DL.ED 12:21 → DL.MS 16:55
PROVIDERS: ADMIT Internal Medicine; ATTEND Internal Medicine
PROC: 30233N1 Transfusion of Nonautologous Red Blood Cells into Peripheral Vein, Percutaneous Approach (ICD-10-PCS; principal; 2020-11-14)
PROC: 3E0234Z Introduction of Serum, Toxoid and Vaccine into Muscle, Percutaneous Approach (ICD-10-PCS; 2020-11-14)
DX: K92.0 Hematemesis (principal); D64.9 Anemia, unspecified; R53.1 Weakness; K92.2 Gastrointestinal hemorrhage, unspecified; D62 Acute posthemorrhagic anemia; G30.9 Alzheimer's disease, unspecified; F02.80 Dementia in other diseases classified elsewhere, unspecified severity, without behavioral disturbance, psychotic disturbance, mood disturbance, and anxiety; F39 Unspecified mood [affective] disorder; F41.9 Anxiety disorder, unspecified; Z20.822 Contact with and (suspected) exposure to COVID-19; E53.8 Deficiency of other specified B group vitamins; M79.7 Fibromyalgia; Z66 Do not resuscitate; R32 Unspecified urinary incontinence; Z85.3 Personal history of malignant neoplasm of breast; Z91.013 Allergy to seafood; Z88.8 Allergy status to other drugs, medicaments and biological substances; Z90.49 Acquired absence of other specified parts of digestive tract; Z90.12 Acquired absence of left breast and nipple; Z23 Encounter for immunization; Z79.899 Other long term (current) drug therapy
CPT/HCPCS: 36415; 71045; 74176; 80053; 81001; 82272; 84484; 85025; 85610; 86850; 86900; 86901; 86920; 86922; 87086; 87635; 87804 ×2; 93005; C9113; J2354; J7030; 36430; 80048; 85027; 90732; 96374; 96375; 99285-25; A9270-GY; J2405; P9016; U0002

== ENCOUNTER 2021-02-22 22:46 | Observation (INO) | payer OTHER ==
--- NOTE | 2021-02-22 23:11 | EDM.PDOC ---
ED HPI GENERAL MEDICAL PROBLEM - General Chief Complaint: General Stated Complaint: CALL IN FROM ER Time Seen by Provider: 02/22/21 23:00 Source of Information: Reports: Family History Limitations: Reports: No Limitations - History of Present Illness INITIAL COMMENTS - FREE TEXT/NARRATIVE: ED with daughter. Daughter reports patient has hx advanced Alzheimer, chronic anemia and hx UTI's, Appetite generally poor, take liquids with much encouragement and difficulty with taking and swallowing medications. Today more aggressive than normal and usually does this when low Hgb or UTI. Labs drawn by home care nurse and results called by [facility] and they were told to go to ED..No reported fever or chills. Takes iron supplement every other day, . Stool yesterday was brown and more black today. No cough. No complaint of pain. Daughter POA, states patient is DNR and DNI. There is no desire for extensive workup. CT done in October without significant finding. Daughter states desire "palliative type care to make her more comfortable with blood transfusions. Daughter verbalizes understanding transfusion risks, Also verbalizes plan to continue through holidays if needed or at least when family all together in a couple weeks and can further discuss as family unit, - Related Data Allergies Allergy/AdvReac Type Severity Reaction Status Date / Time iodine Allergy Cannot Verified 02/22/21 22:46 Remember shellfish derived Allergy Cannot Verified 02/22/21 22:46 Remember Home Meds: Home Meds Cyanocobalamin (Vitamin B-12) [Cyanocobalamin Injection] 1,000 mcg IM .MONTHLY 10/14/16 [History] Ferrous Gluconate [Iron] 240 mg PO DAILY 07/03/20 [History] Past Medical History HEENT History: Reports: Other (See Below) Other HEENT History: dentures Cardiovascular History: Reports: Heart Murmur Respiratory History: Reports: None Gastrointestinal History: Reports: GI Bleed Genitourinary History: Reports: Urinary Incontinence, UTI, Recurrent [employer] History: Reports: , Spontaneous Musculoskeletal History: Reports: Fibromyalgia Neurological History: Reports: Alzheimers Disease Psychiatric History: Reports: Anxiety, Dementia, Mood Swings Endocrine/Metabolic History: Reports: None Hematologic History: Reports: Anemia, B12 Deficiency, Blood Transfusion(s) Immunologic History: Reports: None Oncologic (Cancer) History: Reports: Breast Dermatologic History: Reports: None - Infectious Disease History Infectious Disease History: Reports: Chicken Pox, Measles, Mumps - Past Surgical History Head Surgeries/Procedures: Reports: None HEENT Surgical History: Reports: Laser Surgery, Tonsillectomy Cardiovascular Surgical History: Reports: None Respiratory Surgical History: Reports: None GI Surgical History: Reports: Appendectomy, Cholecystectomy, Colonoscopy Female Surgical History: Reports: Mastectomy Other Female Surgeries/Procedures: Left breast removed Neurological Surgical History: Reports: None Musculoskeletal Surgical History: Reports: None Oncologic Surgical History: Reports: Biopsy of Breast, Mastectomy Other Oncologic Surgeries/Procedures: Left breast removal Social & Family History - Family History Family Medical History: No Pertinent Family History - Caffeine Use Caffeine Use: Reports: Tea ED ROS GENERAL - Review of Systems Review Of Systems: See Below Constitutional: Reports: Malaise, Decreased Appetite. Denies: Fever, Chills HEENT: Reports: Glasses Respiratory: Reports: No Symptoms Cardiovascular: Reports: No Symptoms GI/Abdominal: Reports: Decreased Appetite, Other (no difficulty swallowing but rolls pills and food in mouth for extended period before swallowing , Daughter notes 30minutes usual before swallowing iron pill. ) : Reports: Incontinence Skin: Reports: No Symptoms Neurological: Reports: Confusion, Weakness. Denies: Trouble Speaking Psychiatric: Reports: Agitation (more aggressive today with toileting) Hematologic/Lymphatic: Reports: Anemia ED EXAM, GENERAL - Physical Exam Exam: See Below Exam Limited By: No Limitations General Appearance: Alert, No Apparent Distress Eye Exam: Bilateral Eye: EOMI Ears: Normal External Exam, Hearing Loss (mild) Nose: Normal Inspection Throat/Mouth: Normal Inspection Head: Atraumatic, Normocephalic Neck: Normal Inspection Respiratory/Chest: No Respiratory Distress, Lungs Clear, Normal Breath Sounds Cardiovascular: Regular Rate, Rhythm. No: No Edema (trace) GI/Abdominal: Normal Bowel Sounds, Soft (Female) Exam: Other (Quick Cath UA by RN, Foul smelling urine, concentrated, cloudy ) Rectal (Female) Exam: Heme + Stool. No: Black Stool Extremities: Normal Inspection Neurological: Alert, Confused. No: Oriented, Normal Cognition Skin Exam: Warm, Dry, Intact, Pallor Course - Vital Signs Last Recorded V/S: Last Vital Signs Temp 97.5 F 02/22/21 23:45 Pulse 86 02/22/21 23:45 Resp 22 H 02/22/21 23:45 BP 129/54 L 02/22/21 23:45 Pulse Ox 95 02/22/21 23:45 - Orders/Labs/Meds Orders: Active Orders 24 hr Category Date Time Status Admission Diagnosis [ADT] Stat ADT 02/23/21 00:08 Ordered Admission Status [Patient Status] [ADT] Routine ADT 02/23/21 00:08 Ordered Communication Order [RC] STAT Care 02/22/21 23:06 Active RED BLOOD CELLS LP [BBK] Stat Lab 02/22/21 22:06 Ordered TYPE AND SCREEN [BBK] Stat Lab 02/22/21 22:06 Ordered Pantoprazole [ProTONIX IV] 80 mg Med 02/22/21 23:48 Active Sodium Chloride 0.9% [Normal Saline] 100 ml IV .BOLUS cefTRIAXone [Rocephin] 1 gm Med 02/22/21 23:48 Active Sodium Chloride 0.9% [Normal Saline AdvBag] 50 ml IV ONETIME Peripheral IV Insertion Adult [OM.PC] Urgent Oth 02/22/21 23:26 Ordered Transfuse Red Blood Cells [COMM] Urgent Oth 02/22/21 23:26 Ordered Code Status [Resuscitation Status] Stat Resus Stat 02/22/21 23:26 Ordered Medication Orders Pantoprazole Sodium 80 mg/ (Sodium Chloride) 100 mls @ 200 mls/hr IV .BOLUS ONE Stop: 02/23/21 00:17 Ceftriaxone Sodium 1 gm/ (Sodium Chloride) 50 mls @ 100 mls/hr IV ONETIME ONE Stop: 02/23/21 00:17 Last Admin: 02/23/21 00:01 Dose: 100 mls/hr Documented by: LUPIS Labs: Laboratory Tests 02/22/21 02/22/21 02/22/21 Range/Units 20:07 22:01 22:40 WBC (5.0-10.0) 10^3/uL RBC (4.2-5.4) 10^6/uL Hgb (12.0-16.0) g/dL Hct (37.0-47.0) % MCV (80-100) fL MCH (27.0-34.0) pg MCHC (33.0-35.0) g/dL Plt Count (150-450) 10^3/uL Neut % (Auto) (42.2-75.2) % Lymph % (Auto) (20.5-50.1) % [place] % (Auto) (2-8) % Eos % (Auto) (1.0-3.0) % Baso % (Auto) (0.0-1.0) % Sodium 142 (136-145) mmol/L Potassium 3.6 (3.5-5.1) mmol/L Chloride 106 (98-107) mmol/L Carbon Dioxide 27 (21-32) mmol/L Anion Gap 12.6 (7-13) mEq/L BUN 9 (7-18) mg/dL Creatinine 0.82 (0.55-1.02) mg/dL Est Cr Clr Drug Dosing TNP Estimated GFR (MDRD) > 60 BUN/Creatinine Ratio 11.0 (No establ ref range) Glucose 114 H (70-99) mg/dL Lactic Acid (0.4-2.0) mmol/L Calcium 8.0 L (8.5-10.1) mg/dL Magnesium 2.2 (1.8-2.4) mg/dL Total Bilirubin 0.6 (0.2-1.0) mg/dL AST 7 L (15-37) U/L ALT 10 L (14-59) U/L Alkaline Phosphatase 104 (46-116) U/L Troponin I High Sens 14 (<=51) pg/mL B-Natriuretic Peptide 449 H (0-100) pg/ml Total Protein 6.5 (6.4-8.2) g/dL Albumin 3.2 L (3.4-5.0) g/dL Globulin 3.3 Albumin/Globulin Ratio 0.97 Urine Color Yellow (YELLOW) Urine Appearance Cloudy (CLEAR) Urine pH 7.0 (5.0-9.0) Ur Specific [place] >= 1.030 (1.005-1.030) Urine Protein 30 H (NEGATIVE) Urine Glucose (UA) Negative (NEGATIVE) Urine Ketones Negative (NEGATIVE) Urine Occult Blood Negative (NEGATIVE) Urine Nitrite Negative (NEGATIVE) Urine Bilirubin Negative (NEGATIVE) Urine Urobilinogen 0.2 (0.2-1.0) mg/dL Ur Leukocyte Esterase Small H (NEGATIVE) Urine RBC 0-5 (0-5) /HPF Urine WBC Semi-packed H (0-5/HPF) /HPF Ur Epithelial Cells Few (NOT SEEN) /HPF Urine Bacteria Many H (0-FEW/HPF) /HPF SARS-CoV-2 RNA (DONA) Negative (NEGATIVE) 02/22/21 02/22/21 Range/Units 22:45 22:45 WBC 6.6 (5.0-10.0) 10^3/uL RBC 2.95 L (4.2-5.4) 10^6/uL Hgb 6.1 L* D (12.0-16.0) g/dL Hct 23.8 L (37.0-47.0) % MCV 80.7 D (80-100) fL MCH 20.7 L (27.0-34.0) pg MCHC 25.6 L (33.0-35.0) g/dL Plt Count 305 D (150-450) 10^3/uL Neut % (Auto) 75.3 H (42.2-75.2) % Lymph % (Auto) 14.6 L (20.5-50.1) % [place] % (Auto) 7.8 (2-8) % Eos % (Auto) 0.8 L (1.0-3.0) % Baso % (Auto) 1.5 H (0.0-1.0) % Sodium (136-145) mmol/L Potassium (3.5-5.1) mmol/L Chloride (98-107) mmol/L Carbon Dioxide (21-32) mmol/L Anion Gap (7-13) mEq/L BUN (7-18) mg/dL Creatinine (0.55-1.02) mg/dL Est Cr Clr Drug Dosing Estimated GFR (MDRD) BUN/Creatinine Ratio (No establ ref range) Glucose (70-99) mg/dL Lactic Acid 1.6 (0.4-2.0) mmol/L Calcium (8.5-10.1) mg/dL Magnesium (1.8-2.4) mg/dL Total Bilirubin (0.2-1.0) mg/dL AST (15-37) U/L ALT (14-59) U/L Alkaline Phosphatase (46-116) U/L Troponin I High Sens (<=51) pg/mL B-Natriuretic Peptide (0-100) pg/ml Total Protein (6.4-8.2) g/dL Albumin (3.4-5.0) g/dL Globulin Albumin/Globulin Ratio Urine Color (YELLOW) Urine Appearance (CLEAR) Urine pH (5.0-9.0) Ur Specific [place] (1.005-1.030) Urine Protein (NEGATIVE) Urine Glucose (UA) (NEGATIVE) Urine Ketones (NEGATIVE) Urine Occult Blood (NEGATIVE) Urine Nitrite (NEGATIVE) Urine Bilirubin (NEGATIVE) Urine Urobilinogen (0.2-1.0) mg/dL Ur Leukocyte Esterase (NEGATIVE) Urine RBC (0-5) /HPF Urine WBC (0-5/HPF) /HPF Ur Epithelial Cells (NOT SEEN) /HPF Urine Bacteria (0-FEW/HPF) /HPF SARS-CoV-2 RNA (DONA) (NEGATIVE) Meds: Medications Generic Name Dose Route Start Last Admin Trade Name Freq PRN Reason Stop Dose Admin Pantoprazole Sodium 80 mg/ 100 mls @ 200 mls/hr 02/22/21 23:48 Sodium Chloride IV 02/23/21 00:17 .BOLUS ONE Ceftriaxone Sodium 1 gm/ 50 mls @ 100 mls/hr 02/22/21 23:48 02/23/21 00:01 Sodium Chloride IV 02/23/21 00:17 100 mls/hr ONETIME ONE Administration Discontinued Medications Generic Name Dose Route Start Last Admin Trade Name Freq PRN Reason Stop Dose Admin Furosemide 20 mg 02/22/21 23:26 Furosemide 40 Mg/4 Ml Vial IVPUSH 02/22/21 23:27 ONETIME ONE Departure - Departure Time of Disposition: 00:22 Disposition: Refer to Observation Condition: Fair Clinical Impression: UTI, Urinary tract infectious disease, Alzheimers disease, Heme positive stool Anemia Qualifiers: Anemia type: unspecified type Qualified Code(s): D64.9 - Anemia, unspecified - Discharge Information Forms: ED Department Discharge Sepsis Event Note (ED) - Evaluation Sepsis Screening Result: No Definite Risk - Focused Exam Vital Signs: Vital Signs Temp Pulse Resp BP Pulse Ox 02/22/21 23:45 97.5 F 86 22 H 129/54 L 95 02/22/21 23:15 86 18 95 02/22/21 23:00 86 20 96 02/22/21 22:52 97.6 F 84 22 H 142/63 H 96 - My Orders Last 24 Hours: My Active Orders 02/22/21 22:06 RED BLOOD CELLS LP [BBK] Stat TYPE AND SCREEN [BBK] Stat 02/22/21 23:06 Communication Order [RC] STAT 02/22/21 23:26 Peripheral IV Insertion Adult [OM.PC] Urgent Transfuse Red Blood Cells [COMM] Urgent Code Status [Resuscitation Status] Stat 02/22/21 23:48 Pantoprazole [ProTONIX IV] 80 mg Sodium Chloride 0.9% [Normal Saline] 100 ml IV .BOLUS cefTRIAXone [Rocephin] 1 gm Sodium Chloride 0.9% [Normal Saline AdvBag] 50 ml IV ONETIME 02/23/21 00:08 Admission Diagnosis [ADT] Stat Admission Status [Patient Status] [ADT] Routine - Assessment/Plan Last 24 Hours: My Active Orders 02/22/21 22:06 RED BLOOD CELLS LP [BBK] Stat TYPE AND SCREEN [BBK] Stat 02/22/21 23:06 Communication Order [RC] STAT 02/22/21 23:26 Peripheral IV Insertion Adult [OM.PC] Urgent Transfuse Red Blood Cells [COMM] Urgent Code Status [Resuscitation Status] Stat 02/22/21 23:48 Pantoprazole [ProTONIX IV] 80 mg Sodium Chloride 0.9% [Normal Saline] 100 ml IV .BOLUS cefTRIAXone [Rocephin] 1 gm Sodium Chloride 0.9% [Normal Saline AdvBag] 50 ml IV ONETIME 02/23/21 00:08 Admission Diagnosis [ADT] Stat Admission Status [Patient Status] [ADT] Routine
[2021-02-22 23:21] LABS: ANION GAP 12.6 mEq/L (7-13); CHLORIDE,CL 106 mmol/L (98-107); SODIUM,NA 142 mmol/L (136-145)
[2021-02-22] MEDS ORDERED: Furosemide 40 MG/4 ML VIAL IVPUSH ONE (23:26)
[2021-02-22] MEDS ORDERED: cefTRIAXone 1 GM in Sodium Chloride 0.9% 50 ML IV ONE (23:48)
[2021-02-22] MEDS ORDERED: Pantoprazole 80 MG in Sodium Chloride 0.9% 100 ML IV ONE (23:48)
--- NOTE | 2021-02-23 01:26 | PCM.HP ---
H&P History of Present Illness - General Date of Service: 02/23/21 Admit Problem/Dx: Admission Diagnosis/Problem Admission Diagnosis/Problem Anemia Source of Information: Family, Old Records, Provider History Limitations: Reports: Other (alzheimers dementia) - History of Present Illness Initial Comments - Free Text/Narative: Bonnie Zapata is a dejuan 85 year old woman with a PMH most significant for alzheimers dementia, recurrent UTIs, chronic anemia, poor appetite and breast cancer who is actively participating in palliative care. She came to the ED with her daughter the evening of 02/22/21 with complaints that Bonnie was acting more aggressive than usual which generally happens when hgb is low and/or Bonnie has a UTI. Labs drawn by home care nurse and results called by [facility] Dr Powers and they were told to go to ED. No reported fever or chills. Takes iron supplement every other day, . Stool yesterday was brown and more black today. No cough. No complaint of pain. Daughter POA, states patient is DNR and DNI. There is no desire for extensive workup. CT done in October without significant finding. Goal of care is comfort based approach and conservative treatment options that make her feel better in the present. Onset of Symptoms: Reports: Today, Sudden Duration of Symptoms: Reports: Hour(s):, Getting Worse - Related Data Allergies/Adverse Reactions: Allergies Allergy/AdvReac Type Severity Reaction Status Date / Time iodine Allergy Cannot Verified 02/23/21 01:36 Remember shellfish derived Allergy Cannot Verified 02/23/21 01:36 Remember Home Medications: Home Meds Cyanocobalamin (Vitamin B-12) [Cyanocobalamin Injection] 1,000 mcg IM .MONTHLY 10/14/16 [History] Ferrous Gluconate [Iron] 240 mg PO DAILY 07/03/20 [History] Past Medical History HEENT History: Reports: Other (See Below) Other HEENT History: dentures Cardiovascular History: Reports: Heart Murmur (06/23 systolic) Respiratory History: Reports: None Gastrointestinal History: Reports: GI Bleed Genitourinary History: Reports: Urinary Incontinence, UTI, Recurrent [employer] History: Reports: , Spontaneous Musculoskeletal History: Reports: Fibromyalgia Neurological History: Reports: Alzheimers Disease Psychiatric History: Reports: Anxiety, Dementia, Mood Swings Endocrine/Metabolic History: Reports: None Hematologic History: Reports: Anemia, B12 Deficiency, Blood Transfusion(s) Immunologic History: Reports: None Oncologic (Cancer) History: Reports: Breast Dermatologic History: Reports: None - Infectious Disease History Infectious Disease History: Reports: Chicken Pox, Measles, Mumps - Past Surgical History Head Surgeries/Procedures: Reports: None HEENT Surgical History: Reports: Laser Surgery, Tonsillectomy Cardiovascular Surgical History: Reports: None Respiratory Surgical History: Reports: None GI Surgical History: Reports: Appendectomy, Cholecystectomy, Colonoscopy Female Surgical History: Reports: Mastectomy Other Female Surgeries/Procedures: Left breast removed Neurological Surgical History: Reports: None Musculoskeletal Surgical History: Reports: None Oncologic Surgical History: Reports: Biopsy of Breast, Mastectomy Other Oncologic Surgeries/Procedures: Left breast removal Social & Family History - Family History Family Medical History: No Pertinent Family History - Tobacco Use Tobacco Use Status *Q: Current Some Day Tobacco User Years of Tobacco use: 60 Packs/Tins Daily: 0.1 - Tobacco Core Measures Tobacco Use/Smoking Within Last 30 Days: Yes Smoking Frequency Within Last 30 Days: Reports: Four or Less Cigarettes Per Day Smokeless Tobacco Use in Last 30 Days: No - Caffeine Use Caffeine Use: Reports: Tea - Recreational Drug Use Recreational Drug Use: No - Living Situation & Occupation Living situation: Reports: with Family (lives with daughter who is her POA) H&P Review of Systems - Review of Systems: Review Of Systems: Unable To Obtain Reason Not Obtained: advanced alzheimers dementia Exam - Exam Exam: See Below - Vital Signs Vital Signs: Last Vital Signs Temp 97.5 F 02/22/21 23:45 Pulse 86 02/22/21 23:45 Resp 22 H 02/22/21 23:45 BP 129/54 L 02/22/21 23:45 Pulse Ox 95 02/22/21 23:45 Weight: 156 lb 9.6 oz - Exam Quality Assessment: No: Supplemental Oxygen, DVT Prophylaxis (per plan for comf ort based approach to care) HEENT: EOMI, Pupils Equal, Other (dentures). No: Scleral Icterus Neck: Supple. No: JVD Lungs: Clear to Auscultation, Normal Respiratory Effort. No: Decreased Breath Sounds, Rales, Rhonchi, Wheezing Cardiovascular: Regular Rate, Regular Rhythm, Systolic Murmur (4/6 ) GI/Abdominal Exam: Soft, Non-Tender (Female) Exam: Deferred Rectal (Female) Exam: Deferred Back Exam: Full Range of Motion Extremities: Normal Inspection, No Pedal Edema Skin: Warm, Dry, Intact Neuro Extensive - Mental Status: Alert (oriented to self only), Normal Mood/Affect. No: Memory Intact Neuro Extensive - Motor, Sensory, Reflexes: Normal Gait - Patient Data Lab Results Last 24 hrs: Laboratory Results - last 24 hr 02/22/21 02/22/21 02/22/21 Range/Units 20:07 22:01 22:06 WBC (5.0-10.0) 10^3/uL RBC (4.2-5.4) 10^6/uL Hgb (12.0-16.0) g/dL Hct (37.0-47.0) % MCV (80-100) fL MCH (27.0-34.0) pg MCHC (33.0-35.0) g/dL Plt Count (150-450) 10^3/uL Neut % (Auto) (42.2-75.2) % Lymph % (Auto) (20.5-50.1) % [place] % (Auto) (2-8) % Eos % (Auto) (1.0-3.0) % Baso % (Auto) (0.0-1.0) % Sodium 142 (136-145) mmol/L Potassium 3.6 (3.5-5.1) mmol/L Chloride 106 (98-107) mmol/L Carbon Dioxide 27 (21-32) mmol/L Anion Gap 12.6 (7-13) mEq/L BUN 9 (7-18) mg/dL Creatinine 0.82 (0.55-1.02) mg/dL Est Cr Clr Drug Dosing TNP Estimated GFR (MDRD) > 60 BUN/Creatinine Ratio 11.0 (No establ ref range) Glucose 114 H (70-99) mg/dL Lactic Acid (0.4-2.0) mmol/L Calcium 8.0 L (8.5-10.1) mg/dL Magnesium 2.2 (1.8-2.4) mg/dL Total Bilirubin 0.6 (0.2-1.0) mg/dL AST 7 L (15-37) U/L ALT 10 L (14-59) U/L Alkaline Phosphatase 104 (46-116) U/L Troponin I High Sens 14 (<=51) pg/mL B-Natriuretic Peptide 449 H (0-100) pg/ml Total Protein 6.5 (6.4-8.2) g/dL Albumin 3.2 L (3.4-5.0) g/dL Globulin 3.3 Albumin/Globulin Ratio 0.97 Urine Color Yellow (YELLOW) Urine Appearance Cloudy (CLEAR) Urine pH 7.0 (5.0-9.0) Ur Specific [place] >= 1.030 (1.005-1.030) Urine Protein 30 H (NEGATIVE) Urine Glucose (UA) Negative (NEGATIVE) Urine Ketones Negative (NEGATIVE) Urine Occult Blood Negative (NEGATIVE) Urine Nitrite Negative (NEGATIVE) Urine Bilirubin Negative (NEGATIVE) Urine Urobilinogen 0.2 (0.2-1.0) mg/dL Ur Leukocyte Esterase Small H (NEGATIVE) Urine RBC 0-5 (0-5) /HPF Urine WBC Semi-packed H (0-5/HPF) /HPF Ur Epithelial Cells Few (NOT SEEN) /HPF Urine Bacteria Many H (0-FEW/HPF) /HPF SARS-CoV-2 RNA (DONA) (NEGATIVE) Blood Type A NEGATIVE Gel Antibody Screen Negative Crossmatch See Detail 02/22/21 02/22/21 02/22/21 Range/Units 22:40 22:45 22:45 WBC 6.6 (5.0-10.0) 10^3/uL RBC 2.95 L (4.2-5.4) 10^6/uL Hgb 6.1 L* D (12.0-16.0) g/dL Hct 23.8 L (37.0-47.0) % MCV 80.7 D (80-100) fL MCH 20.7 L (27.0-34.0) pg MCHC 25.6 L (33.0-35.0) g/dL Plt Count 305 D (150-450) 10^3/uL Neut % (Auto) 75.3 H (42.2-75.2) % Lymph % (Auto) 14.6 L (20.5-50.1) % [place] % (Auto) 7.8 (2-8) % Eos % (Auto) 0.8 L (1.0-3.0) % Baso % (Auto) 1.5 H (0.0-1.0) % Sodium (136-145) mmol/L Potassium (3.5-5.1) mmol/L Chloride (98-107) mmol/L Carbon Dioxide (21-32) mmol/L Anion Gap (7-13) mEq/L BUN (7-18) mg/dL Creatinine (0.55-1.02) mg/dL Est Cr Clr Drug Dosing Estimated GFR (MDRD) BUN/Creatinine Ratio (No establ ref range) Glucose (70-99) mg/dL Lactic Acid 1.6 (0.4-2.0) mmol/L Calcium (8.5-10.1) mg/dL Magnesium (1.8-2.4) mg/dL Total Bilirubin (0.2-1.0) mg/dL AST (15-37) U/L ALT (14-59) U/L Alkaline Phosphatase (46-116) U/L Troponin I High Sens (<=51) pg/mL B-Natriuretic Peptide (0-100) pg/ml Total Protein (6.4-8.2) g/dL Albumin (3.4-5.0) g/dL Globulin Albumin/Globulin Ratio Urine Color (YELLOW) Urine Appearance (CLEAR) Urine pH (5.0-9.0) Ur Specific [place] (1.005-1.030) Urine Protein (NEGATIVE) Urine Glucose (UA) (NEGATIVE) Urine Ketones (NEGATIVE) Urine Occult Blood (NEGATIVE) Urine Nitrite (NEGATIVE) Urine Bilirubin (NEGATIVE) Urine Urobilinogen (0.2-1.0) mg/dL Ur Leukocyte Esterase (NEGATIVE) Urine RBC (0-5) /HPF Urine WBC (0-5/HPF) /HPF Ur Epithelial Cells (NOT SEEN) /HPF Urine Bacteria (0-FEW/HPF) /HPF SARS-CoV-2 RNA (DONA) Negative (NEGATIVE) Blood Type Gel Antibody Screen Crossmatch Result Diagrams: 02/22/21 22:45 02/22/21 22:01 Jamel Results Last 24 hrs: Microbiology 02/22/21 23:01 Stool Occult Blood (JAMEL) - Final Stool / Feces Problem List Initiated/Reviewed/Updated: Yes Orders Last 24hrs: Active Orders 24 hr Category Date Time Status Admission Diagnosis [ADT] Stat ADT 02/23/21 00:08 Ordered Admission Status [Patient Status] [ADT] Routine ADT 02/23/21 00:08 Active RED BLOOD CELLS LP [BBK] Stat Lab 02/22/21 22:06 Results TYPE AND SCREEN [BBK] Stat Lab 02/22/21 22:06 Results WEAK D TEST [BBK] Stat Lab 02/22/21 22:06 Results Peripheral IV Insertion Adult [OM.PC] Urgent Oth 02/22/21 23:26 Ordered Transfuse Red Blood Cells [COMM] Urgent Oth 02/22/21 23:26 Ordered Code Status [Resuscitation Status] Stat Resus Stat 02/22/21 23:26 Ordered Assessment/Plan Comment:: ACUTE PROBLEMS: acute likely blood loss anemia chronic iron deficiency anemia - pts family request palliative care approach to care. - Hgb 6.1 on admit with baseline 8-9. - 2U PRBC ordered in the ED Plan: - IV lasix 40U once between units - recheck lab early am with tentative plan to discharge back home with daughter when hgb is >7 and no signs of active bleeding Possible UTI vs colonization - UA: positive for bacteria. - pt started on ceftriaxone in the ED - follow results of urine culture CHRONIC CONDITIONS: - alzheimers dementia without behavioral disturbance. - Hx of breast cancer Code status: DNR/DNI DVT prophylaxis: none per family request for comfort based approach to care.
[2021-02-23] MEDS ORDERED: Polyethylene Glycol 3350 Powder 17 GM Packet PO PRN (01:34)
[2021-02-23] MEDS ORDERED: Acetaminophen 325 MG Tab PO PRN (01:34)
[2021-02-23] MEDS ORDERED: Ondansetron 4 MG/2 ML SDV IVPUSH PRN (01:34)
--- NOTE | 2021-02-23 12:18 | PCM.DCSUM1 ---
Discharge Summary - Hospital Course Brief History: see below Diagnosis: Stroke: No Modified Potter Scale: Mod.Disablility Requiring Some Help,Able to Walk Without Assistance Modified Potter Scale Score: 3 - Discharge Data Discharge Date: 02/23/21 (DC with family) Discharge Disposition: Home, Self-Care 01 Condition: Stable - Referral to Home Health Primary Care Physician: PCP None - Patient Instructions Diet: Usual Diet as Tolerated Driving: Do Not Drive Showering/Bathing: May Shower - Discharge Plan *PRESCRIPTION DRUG MONITORING PROGRAM REVIEWED*: Not Applicable *COPY OF PRESCRIPTION DRUG MONITORING REPORT IN PATIENT KEVIN: Not Applicable Home Medications: Home Meds Cyanocobalamin (Vitamin B-12) [Cyanocobalamin Injection] 1,000 mcg IM .MONTHLY 10/14/16 [History] Ferrous Gluconate [Iron] 240 mg PO DAILY 07/03/20 [History] Acetaminophen [Tylenol] 650 mg PO Q4H PRN tablet 02/23/21 [Rx] Ondansetron [Zofran] 4 mg IVPUSH Q4H PRN vial 02/23/21 [Rx] polyethylene glycoL 3350 [MiraLAX] 17 gm PO DAILY PRN packet 02/23/21 [Rx] Oxygen Therapy Mode: Room Air Forms: ED Department Discharge - Discharge Summary/Plan Comment DC Time >30 min.: Yes Total # of Minutes for Discharge Time: 45 Discharge Summary/Plan Comment: Bonnie Zapata is a dejuan 85 year old woman with a PMH most significant for alzheimers dementia, recurrent UTIs, chronic anemia, poor appetite and breast cancer who is actively participating in palliative care. She came to the ED with her daughter the evening of 02/22/21 with complaints that Bonnie was acting more aggressive than usual which generally happens when hgb is low and/or Bonnie has a UTI. Labs drawn by home care nurse and results called by [facility] Dr Powers and they were told to go to ED. No reported fever or chills. Takes iron supplement every other day. Daughter POA, states patient is DNR and DNI and there is no desire for extensive workup. CT done in October without significant finding. Goal of care is comfort based approach and conservative treatment options that make her feel better in the present. Patient was managed to the hospital in observation. She was transfused 2 units packed red blood cells and was given an antibiotic for possible urinary tract infection. By the morning of 02/23/2021 she said to be medically stable for discharge from the hospital. Will discharge home with family with a continue discuss goals of care. All questions concerns were addressed to the bedside prior to discharge. - General Info Date of Service: 02/23/21 Admission Dx/Problem (Free Text: Admission Diagnosis/Problem Admission Diagnosis/Problem Anemia Subjective Update: feeling much better. pleasantly confused Functional Status: Reports: Pain Controlled - Review of Systems Systems Review Comment: unable to complete secondary to alzheimers dementia - Patient Data Vitals - Most Recent: Last Vital Signs Temp 97.2 F 02/23/21 09:00 Pulse 70 02/23/21 09:00 Resp 16 02/23/21 09:00 BP 132/54 L 02/23/21 09:00 Pulse Ox 97 02/23/21 08:47 Weight - Most Recent: 154 lb 4 oz I&O - Last 24 hours: Intake & Output 02/22/21 02/23/21 02/23/21 22:59 06:59 14:59 Intake Total 350 350 Balance 350 350 Lab Results - Last 24 hrs: Laboratory Results - last 24 hr 02/22/21 02/22/21 02/22/21 Range/Units 20:07 22:01 22:06 WBC (5.0-10.0) 10^3/uL RBC (4.2-5.4) 10^6/uL Hgb (12.0-16.0) g/dL Hct (37.0-47.0) % MCV (80-100) fL MCH (27.0-34.0) pg MCHC (33.0-35.0) g/dL Plt Count (150-450) 10^3/uL Neut % (Auto) (42.2-75.2) % Lymph % (Auto) (20.5-50.1) % [place] % (Auto) (2-8) % Eos % (Auto) (1.0-3.0) % Baso % (Auto) (0.0-1.0) % Sodium 142 (136-145) mmol/L Potassium 3.6 (3.5-5.1) mmol/L Chloride 106 (98-107) mmol/L Carbon Dioxide 27 (21-32) mmol/L Anion Gap 12.6 (7-13) mEq/L BUN 9 (7-18) mg/dL Creatinine 0.82 (0.55-1.02) mg/dL Est Cr Clr Drug Dosing TNP Estimated GFR (MDRD) > 60 BUN/Creatinine Ratio 11.0 (No establ ref range) Glucose 114 H (70-99) mg/dL Lactic Acid (0.4-2.0) mmol/L Calcium 8.0 L (8.5-10.1) mg/dL Magnesium 2.2 (1.8-2.4) mg/dL Total Bilirubin 0.6 (0.2-1.0) mg/dL AST 7 L (15-37) U/L ALT 10 L (14-59) U/L Alkaline Phosphatase 104 (46-116) U/L Troponin I High Sens 14 (<=51) pg/mL B-Natriuretic Peptide 449 H (0-100) pg/ml Total Protein 6.5 (6.4-8.2) g/dL Albumin 3.2 L (3.4-5.0) g/dL Globulin 3.3 Albumin/Globulin Ratio 0.97 Urine Color Yellow (YELLOW) Urine Appearance Cloudy (CLEAR) Urine pH 7.0 (5.0-9.0) Ur Specific [place] >= 1.030 (1.005-1.030) Urine Protein 30 H (NEGATIVE) Urine Glucose (UA) Negative (NEGATIVE) Urine Ketones Negative (NEGATIVE) Urine Occult Blood Negative (NEGATIVE) Urine Nitrite Negative (NEGATIVE) Urine Bilirubin Negative (NEGATIVE) Urine Urobilinogen 0.2 (0.2-1.0) mg/dL Ur Leukocyte Esterase Small H (NEGATIVE) Urine RBC 0-5 (0-5) /HPF Urine WBC Semi-packed H (0-5/HPF) /HPF Ur Epithelial Cells Few (NOT SEEN) /HPF Urine Bacteria Many H (0-FEW/HPF) /HPF SARS-CoV-2 RNA (DONA) (NEGATIVE) Blood Type A NEGATIVE Gel Antibody Screen Negative Crossmatch See Detail 02/22/21 02/22/21 02/22/21 Range/Units 22:40 22:45 22:45 WBC 6.6 (5.0-10.0) 10^3/uL RBC 2.95 L (4.2-5.4) 10^6/uL Hgb 6.1 L* D (12.0-16.0) g/dL Hct 23.8 L (37.0-47.0) % MCV 80.7 D (80-100) fL MCH 20.7 L (27.0-34.0) pg MCHC 25.6 L (33.0-35.0) g/dL Plt Count 305 D (150-450) 10^3/uL Neut % (Auto) 75.3 H (42.2-75.2) % Lymph % (Auto) 14.6 L (20.5-50.1) % [place] % (Auto) 7.8 (2-8) % Eos % (Auto) 0.8 L (1.0-3.0) % Baso % (Auto) 1.5 H (0.0-1.0) % Sodium (136-145) mmol/L Potassium (3.5-5.1) mmol/L Chloride (98-107) mmol/L Carbon Dioxide (21-32) mmol/L Anion Gap (7-13) mEq/L BUN (7-18) mg/dL Creatinine (0.55-1.02) mg/dL Est Cr Clr Drug Dosing Estimated GFR (MDRD) BUN/Creatinine Ratio (No establ ref range) Glucose (70-99) mg/dL Lactic Acid 1.6 (0.4-2.0) mmol/L Calcium (8.5-10.1) mg/dL Magnesium (1.8-2.4) mg/dL Total Bilirubin (0.2-1.0) mg/dL AST (15-37) U/L ALT (14-59) U/L Alkaline Phosphatase (46-116) U/L Troponin I High Sens (<=51) pg/mL B-Natriuretic Peptide (0-100) pg/ml Total Protein (6.4-8.2) g/dL Albumin (3.4-5.0) g/dL Globulin Albumin/Globulin Ratio Urine Color (YELLOW) Urine Appearance (CLEAR) Urine pH (5.0-9.0) Ur Specific [place] (1.005-1.030) Urine Protein (NEGATIVE) Urine Glucose (UA) (NEGATIVE) Urine Ketones (NEGATIVE) Urine Occult Blood (NEGATIVE) Urine Nitrite (NEGATIVE) Urine Bilirubin (NEGATIVE) Urine Urobilinogen (0.2-1.0) mg/dL Ur Leukocyte Esterase (NEGATIVE) Urine RBC (0-5) /HPF Urine WBC (0-5/HPF) /HPF Ur Epithelial Cells (NOT SEEN) /HPF Urine Bacteria (0-FEW/HPF) /HPF SARS-CoV-2 RNA (DONA) Negative (NEGATIVE) Blood Type Gel Antibody Screen Crossmatch 02/23/21 Range/Units 05:55 WBC 5.2 (5.0-10.0) 10^3/uL RBC 3.29 L (4.2-5.4) 10^6/uL Hgb 7.6 L D (12.0-16.0) g/dL Hct 27.3 L (37.0-47.0) % MCV 83.0 (80-100) fL MCH 23.1 L (27.0-34.0) pg MCHC 27.8 L (33.0-35.0) g/dL Plt Count 253 (150-450) 10^3/uL Neut % (Auto) (42.2-75.2) % Lymph % (Auto) (20.5-50.1) % [place] % (Auto) (2-8) % Eos % (Auto) (1.0-3.0) % Baso % (Auto) (0.0-1.0) % Sodium (136-145) mmol/L Potassium (3.5-5.1) mmol/L Chloride (98-107) mmol/L Carbon Dioxide (21-32) mmol/L Anion Gap (7-13) mEq/L BUN (7-18) mg/dL Creatinine (0.55-1.02) mg/dL Est Cr Clr Drug Dosing Estimated GFR (MDRD) BUN/Creatinine Ratio (No establ ref range) Glucose (70-99) mg/dL Lactic Acid (0.4-2.0) mmol/L Calcium (8.5-10.1) mg/dL Magnesium (1.8-2.4) mg/dL Total Bilirubin (0.2-1.0) mg/dL AST (15-37) U/L ALT (14-59) U/L Alkaline Phosphatase (46-116) U/L Troponin I High Sens (<=51) pg/mL B-Natriuretic Peptide (0-100) pg/ml Total Protein (6.4-8.2) g/dL Albumin (3.4-5.0) g/dL Globulin Albumin/Globulin Ratio Urine Color (YELLOW) Urine Appearance (CLEAR) Urine pH (5.0-9.0) Ur Specific [place] (1.005-1.030) Urine Protein (NEGATIVE) Urine Glucose (UA) (NEGATIVE) Urine Ketones (NEGATIVE) Urine Occult Blood (NEGATIVE) Urine Nitrite (NEGATIVE) Urine Bilirubin (NEGATIVE) Urine Urobilinogen (0.2-1.0) mg/dL Ur Leukocyte Esterase (NEGATIVE) Urine RBC (0-5) /HPF Urine WBC (0-5/HPF) /HPF Ur Epithelial Cells (NOT SEEN) /HPF Urine Bacteria (0-FEW/HPF) /HPF SARS-CoV-2 RNA (DONA) (NEGATIVE) Blood Type Gel Antibody Screen Crossmatch SHEILA Results - Last 24 hrs: Microbiology 02/22/21 23:01 Stool Occult Blood (SHEILA) - Final Stool / Feces Med Orders - Current: Current Medications Acetaminophen (Acetaminophen 325 Mg Tab) 650 mg PO Q4H PRN PRN Reason: Pain (Mild 1-3)/fever Ondansetron HCl (Ondansetron 4 Mg/2 Ml Sdv) 4 mg IVPUSH Q4H PRN PRN Reason: Nausea/Vomiting Polyethylene Glycol (Polyethylene Glycol 3350 Powder 17 Gm Packet) 17 gm PO DAILY PRN PRN Reason: Constipation Discontinued Medications Furosemide (Furosemide 40 Mg/4 Ml Vial) 20 mg IVPUSH ONETIME ONE Stop: 02/22/21 23:27 Last Admin: 02/23/21 05:13 Dose: 20 mg Documented by: Pantoprazole Sodium 80 mg/ (Sodium Chloride) 100 mls @ 200 mls/hr IV .BOLUS ONE Stop: 02/23/21 00:17 Last Admin: 02/23/21 00:18 Dose: 200 mls/hr Documented by: Ceftriaxone Sodium 1 gm/ (Sodium Chloride) 50 mls @ 100 mls/hr IV ONETIME ONE Stop: 02/23/21 00:17 Last Admin: 02/23/21 00:01 Dose: 100 mls/hr Documented by: - Exam Quality Assessment: Denies: Supplemental Oxygen, Urine Catheter, DVT Prophylaxis, Skin Breakdown General: Reports: Alert, Oriented (to self only), No Acute Distress HEENT: Reports: EOMI, Mucous Membr. Moist/[place] Neck: Reports: Supple. Denies: No JVD Lungs: Reports: Clear to Auscultation, Normal Respiratory Effort. Denies: Decreased Breath Sounds, Rhonchi, Rub, Wheezing GI/Abdominal Exam: Normal Bowel Sounds, Soft, Non-Tender (Female) Exam: Deferred Rectal (Female) Exam: Deferred Back Exam: Reports: Full Range of Motion Extremities: Normal Inspection, Normal Range of Motion, Non-Tender, No Pedal Edema Skin: Reports: Warm, Dry, Intact Neurological: Reports: No New Focal Deficit Psy/Mental Status: Reports: Alert, Normal Affect, Normal Mood *Q Meaningful Use (DIS) - VTE *Q VTE Mechanical Contraindications *Q: Tx/Proc Refused byPt VTE Pharmacological Contraindications *Q: Tx/Proc Refused by Pt VTE Anticoagulation Contraindications: Tx/proc Refused by PT - Stroke *Q Anticoagulation Contraindications Stroke *Q: TX/PROC Refused by PT Antithrombotic Contraindications Stroke *Q: TX/PROC Refused by PT Statin Contraindications Stroke *Q: TX/PROC Refused by PT Rehabilitation Assessment Contraindication *Q: Tx/proc refused by pt - AMI *Q Aspirin Contraindications AMI *Q: TX/PROC Refused by PT Statin Contraindications AMI *Q: TX/Proc Refused by PT
[2021-02-23 12:51] VITALS: BP 121/76; PULSE 87
== END 2021-02-23 15:20 | disposition home or self-care (01) ==
LOC: DL.ED 22:46 → DL.MS 02-23 00:08 → DL.ED 02-23 00:20
PROVIDERS: ADMIT Hospitalist; ATTEND Hospitalist
DX: D50.9 Iron deficiency anemia, unspecified (principal); F17.210 Nicotine dependence, cigarettes, uncomplicated; G30.9 Alzheimer's disease, unspecified; F02.80 Dementia in other diseases classified elsewhere, unspecified severity, without behavioral disturbance, psychotic disturbance, mood disturbance, and anxiety; N39.0 Urinary tract infection, site not specified; Z98.890 Other specified postprocedural states; Z90.49 Acquired absence of other specified parts of digestive tract; Z79.899 Other long term (current) drug therapy; Z20.822 Contact with and (suspected) exposure to COVID-19
CPT/HCPCS: 36415; 36430; 80053; 81001; 82272; 83605; 83735; 83880; 84484; 85025; 85027; 86850; 86900; 86901; 86920; 86922; 87635; 96374; 96375; 99284; C9113; G0378; J0696; J1940; P9016; U0002